=== PATIENT | male | born 1950 | race Caucasian/White ===

== ENCOUNTER 2020-07-18 13:46 | Inpatient (IN) | payer MEDICARE, BC ==
--- NOTE | 2020-07-18 14:15 | EDM.PDOC ---
ED HPI GENERAL MEDICAL PROBLEM - General Chief Complaint: Respiratory Problem Stated Complaint: COVID + Time Seen by Provider: 07/18/20 14:04 Source of Information: Reports: Patient History Limitations: Reports: No Limitations - History of Present Illness INITIAL COMMENTS - FREE TEXT/NARRATIVE: 69-year-old male presents to the ED with known COVID-19 positivity diagnosed July 10. Symptoms developed with fever chills body aches sore throat on July 07. Patient presents to the ED today due to mild dyspnea. Continues to have paroxysmal nonproductive cough. He is weak, dizzy has not eaten hardly at any solid food since the onset of illness on July 07. This would make him day 9 of illness. He has not developed any diarrhea. Intermittent daily fever. Last took Tylenol at 1100 hrs today. He had dry heaves for 1 day of illness. O2 sats on arrival in the ED were reportedly 74%. He continues to have fever and chills with rigors at the time of evaluation in the ED. He has been living at home with his sleeping on the couch. So far his is not showing any signs or symptoms. He is unsure where he picked up the virus. Onset: Sudden Onset Date: 07/07/20 Duration: Day(s): Location: Reports: Generalized, Other (Has myalgia and weakness. Paroxysmal nonproductive cough. COVID-19 positive with symptom onset July 07.) Quality: Reports: Ache (Neurolyse myalgia), Other Severity: Moderate Improves with: Reports: None Worsens with: Reports: Movement Context: Denies: Activity, Exercise, Lifting, Sick Contact, Trauma, Other Associated Symptoms: Reports: Cough, Diaphoresis, Fever/Chills, Headaches, Loss of Appetite, Malaise, Nausea/Vomiting, Shortness of Breath, Weakness (He 1 day with dry heaves but no true vomiting.), Other (No diarrhea.Nasal congestion. ). Denies: Chest Pain, cough w sputum (Intermittent severe paroxysmal cough. Nonproductive), Rash, Seizure (Mild.), Syncope Treatments [employer]: Reports: Acetaminophen - Related Data Allergies Allergy/AdvReac Type Severity Reaction Status Date / Time No Known Allergies Allergy Verified 07/18/20 14:16 Home Meds: Home Meds Metoprolol Tartrate [Lopressor] 50 mg PO BID 11/09/16 [History] Past Medical History HEENT History: Reports: Impaired Vision Other HEENT History: glasses Cardiovascular History: Reports: Hypertension Musculoskeletal History: Reports: Amputation - Past Surgical History Musculoskeletal Surgical History: Reports: Other (See Below) (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 He ended up having the left index finger and thumb amputated.) Social & Family History - Family History Family Medical History: No Pertinent Family History - Caffeine Use Caffeine Use: Reports: Coffee - Living Situation & Occupation Living situation: Reports: Occupation: Retired ED ROS GENERAL - Review of Systems Review Of Systems: See Below Constitutional: Reports: Fever, Chills, Malaise, Weakness, Fatigue, Decreased Appetite (Has not had any solids for 9 days), Weight Loss HEENT: Reports: Glasses, Throat Pain (Nasal congestion. Mild sore throat.), Other Respiratory: Reports: Shortness of Breath, Cough (Ox is minimal intermittent cough). Denies: Wheezing, Pleuritic Chest Pain, Sputum, Hemoptysis ( nonproductive) Cardiovascular: Reports: Blood Pressure Problem, Dyspnea on Exertion. Denies: Chest Pain, Claudication (Is on medication for hypertension.), Edema, Lightheadedness, Orthopnea, Palpitations Endocrine: Reports: Fatigue GI/Abdominal: Reports: Anorexia, Nausea (Intermittent nausea.). Denies: Diarrhea, Vomiting : Reports: Other (Urine is dark in color.) Musculoskeletal: Reports: Other (Neurolyse myalgia involving neck low back hips.) Skin: Reports: No Symptoms Neurological: Reports: Headache, Weakness (Generalized weakness.). Denies: Confusion, Dizziness, Numbness, Paresthesia, Syncope, Tingling, Tremors, Change in Speech, Gait Disturbance Psychiatric: Reports: Anxiety Hematologic/Lymphatic: Reports: No Symptoms Immunologic: Reports: No Symptoms ED EXAM, GENERAL - Physical Exam Exam: See Below Exam Limited By: No Limitations General Appearance: Alert, WD/WN, No Apparent Distress, Other (Patient is flushed and warm to palpation. His O2 sats at time of presentation only 74% on room air. Started on 3 L but took 5 L/min to get him up to 94 to 96%. Temperature is 36.9 according to the nurse although he feels much warmer than this. Heart rate was 96 in sinus on the monitor respiratory to 32/min. Blood pressure initially was recorded very high at 224/189 which is unlikely to be accurate due to the pulse pressure being too close together. Subsequent blood pressure check was 149/85.) Eye Exam: Bilateral Eye: Normal Inspection (No scleral icterus or blepharal pallor.), PERRL Ears: Normal TMs Nose: Normal Inspection Throat/Mouth: Other (Tongue is very dry and coated. Diffuse minimal erythema posterior oropharynx without any exudate.) Head: Atraumatic, Normocephalic Neck: Normal Inspection, Supple, Non-Tender, Full Range of Motion. No: Carotid Bruit, Lymphadenopathy (L), Lymphadenopathy (R), Thyromegaly Respiratory/Chest: Lungs Clear, Normal Breath Sounds, No Accessory Muscle Use, Respiratory Distress (Tachypnea at rest with O2 sats of only 74% room air.) Cardiovascular: Normal Peripheral Pulses, No Edema, No Gallop, No Murmur, No Rub, Tachycardia (6/min on my evaluation) Peripheral Pulses: 2+: Posterior Tibial (L), Posterior Tibial (R), Dorsalis Pedis (L), Dorsalis Pedis (R), 3+: Carotid (L), Carotid (R) GI/Abdominal: Normal Bowel Sounds, Soft, Non-Tender, No Organomegaly, No Mass, Pelvis Stable Back Exam: Normal Inspection, Full Range of Motion. No: CVA Tenderness (L), CVA Tenderness (R) Extremities: Non-Tender, Other (Patient has had previous surgery with amputation of left thumb left index finger from electrocution injury while working as a clin nurse. He also suffered extensive injury to the forearm muscles. Has some permanent left-sided arm weakness.) Neurological: Alert, Oriented, CN II-XII Intact, Normal Cognition Psychiatric: Normal Affect, Normal Mood Skin Exam: Warm, Dry, Intact, Normal Color, Other (Face is flushed and warm to palpation.) #1 Interpretation EKG Date: 07/18/20 Time: 14:33 Rhythm: NSR Rate (Beats/Min): 93 [place]: Normal P-Wave: Enlarged QRS: Other (Left atrial hypertrophy pattern RSR prime wave V1 and V2 consider normal variant. Early R wave transition consider septal hypertrophy pattern) ST-T: Other (Nonspecific T wave flattening aVL) QT: Normal EKG Interpretation Comments: Abnormal ECG Course - Vital Signs Last Recorded V/S: Last Vital Signs Temp 38.7 C H 07/18/20 15:03 Pulse 97 07/18/20 15:00 Resp 34 H 07/18/20 15:00 BP 155/64 H 07/18/20 15:00 Pulse Ox 95 07/18/20 15:00 - Orders/Labs/Meds Orders: Active Orders 24 hr Category Date Time Status EKG Documentation Completion [RC] STAT Care 07/18/20 14:18 Active Oxygen Therapy [RC] ASDIRECTED Care 07/18/20 14:18 Active Oxygen Therapy [RC] ASDIRECTED Care 07/18/20 14:25 Active C-REACTIVE PROTEIN [CHEM] Stat Lab 07/18/20 14:57 Results CULTURE BLOOD [BC] Stat Lab 07/18/20 14:57 Received CULTURE BLOOD [BC] Stat Lab 07/18/20 15:10 Received MAGNESIUM [CHEM] Stat Lab 07/18/20 14:57 Results SEDIMENTATION RATE AUTO [HEME] Stat Lab 07/18/20 14:57 Received URINALYSIS W/MICROSCOPIC [UA W/MICROSCOPIC] [URIN] Stat Lab 07/18/20 14:26 Ordered Dextrose 5%-Lactated Ringers 1,000 ml Med 07/18/20 14:30 Active IV ASDIRECTED dexAMETHasone [Decadron] Med 07/18/20 16:10 Once 6 mg IVPUSH ONETIME ONE Blood Culture x2 Reflex Set [OM.PC] Stat Oth 07/18/20 14:39 Ordered Medication Orders Dextrose/Lactated Ringer's (Dextrose 5%-Lactated Ringers) 1,000 mls @ 150 mls/hr IV ASDIRECTED [facility] Admin: 07/18/20 15:02 Dose: 150 mls/hr Documented by: JORDI 69-year-old male presents to the ED with known COVID-19 illness. Became symptomatic with fever chills body aches and headache on July 07. Diagnosed positive on July 10. He therefore is currently on day 9 of illness. He presents primarily because of fever chills generalized weakness. He reports he not been able to eat any solids normal since onset of illness. He has been taking fluids forcefully. Continues to have a paroxysmal nonproductive cough. 1 day he had nausea with dry heaves. No diarrhea. Nasal congestion persists with mild sore throat. Patient found to be hypoxic at time of presentation with O2 sats of 74% on room air. He clinically is also febrile. Lungs are clear to all station percussion. Plan septic work-up to be completed. Patient will likely require admission to the hospital as he takes 5 L of oxygen to maintain O2 sats greater than 94%. He will be turned down to 4 L/min by nasal cannula at this time. Patient will benefit from dexamethasone IV and Remdesivir. Labs: Laboratory Tests 07/18/20 07/18/20 07/18/20 Range/Units 14:57 14:57 14:57 WBC 6.36 (4.23-9.07) K/mm3 RBC 4.46 L (4.63-6.08) M/mm3 Hgb 13.8 (13.7-17.5) gm/dl Hct 42.2 (40.1-51.0) % MCV 94.6 H (79.0-92.2) fl MCH 30.9 (25.7-32.2) pg MCHC 32.7 (32.2-35.5) g/dl RDW Std Deviation 43.6 (35.1-43.9) fL Plt Count 153 L (163-337) K/mm3 MPV 9.6 (9.4-12.3) fl Neut % (Auto) 85.5 H (34.0-67.9) % Lymph % (Auto) 9.6 L (21.8-53.1) % [place] % (Auto) 4.6 L (5.3-12.2) % Eos % (Auto) 0 L (0.8-7.0) Baso % (Auto) 0.0 L (0.1-1.2) % Neut # (Auto) 5.44 H (1.78-5.38) K/mm3 Lymph # (Auto) 0.61 L (1.32-3.57) K/mm3 [place] # (Auto) 0.29 L (0.30-0.82) K/mm3 Eos # (Auto) 0.00 L (0.04-0.54) K/mm3 Baso # (Auto) 0.00 L (0.01-0.08) K/mm3 Manual Slide Review Abnormal smear PT 11.8 (9.7-12.0) SECONDS INR 1.10 APTT 37.2 H (21.7-31.4) SECONDS Sodium 136 (136-145) mEq/L Potassium 3.8 (3.5-5.1) mEq/L Chloride 98 (98-107) mEq/L Carbon Dioxide 28 (21-32) mEq/L Anion Gap 13.8 (5-15) BUN 20 H (7-18) mg/dL Creatinine 1.3 (0.7-1.3) mg/dL Est Cr Clr Drug Dosing 55.51 mL/min Estimated GFR (MDRD) 54 (>60) mL/min BUN/Creatinine Ratio 15.4 (14-18) Glucose 106 (83-115) mg/dL Lactic Acid (0.4-2.0) mmol/L Calcium 8.2 L (8.5-10.1) mg/dL Magnesium (1.8-2.4) mg/dl Total Bilirubin 0.5 (0.2-1.0) mg/dL AST 42 H (15-37) U/L ALT 39 (16-63) U/L Alkaline Phosphatase 36 L (46-116) U/L Troponin I < 0.017 (0.00-0.056) ng/mL NT-Pro-B Natriuret Pep (0-125) pg/mL Total Protein 7.6 (6.4-8.2) g/dl Albumin 2.8 L (3.4-5.0) g/dl Globulin 4.8 gm/dL Albumin/Globulin Ratio 0.6 L (1-2) 07/18/20 07/18/20 07/18/20 Range/Units 14:57 14:57 14:57 WBC (4.23-9.07) K/mm3 RBC (4.63-6.08) M/mm3 Hgb (13.7-17.5) gm/dl Hct (40.1-51.0) % MCV (79.0-92.2) fl MCH (25.7-32.2) pg MCHC (32.2-35.5) g/dl RDW Std Deviation (35.1-43.9) fL Plt Count (163-337) K/mm3 MPV (9.4-12.3) fl Neut % (Auto) (34.0-67.9) % Lymph % (Auto) (21.8-53.1) % [place] % (Auto) (5.3-12.2) % Eos % (Auto) (0.8-7.0) Baso % (Auto) (0.1-1.2) % Neut # (Auto) (1.78-5.38) K/mm3 Lymph # (Auto) (1.32-3.57) K/mm3 [place] # (Auto) (0.30-0.82) K/mm3 Eos # (Auto) (0.04-0.54) K/mm3 Baso # (Auto) (0.01-0.08) K/mm3 Manual Slide Review PT (9.7-12.0) SECONDS INR APTT (21.7-31.4) SECONDS Sodium (136-145) mEq/L Potassium (3.5-5.1) mEq/L Chloride (98-107) mEq/L Carbon Dioxide (21-32) mEq/L Anion Gap (5-15) BUN (7-18) mg/dL Creatinine (0.7-1.3) mg/dL Est Cr Clr Drug Dosing mL/min Estimated GFR (MDRD) (>60) mL/min BUN/Creatinine Ratio (14-18) Glucose (83-115) mg/dL Lactic Acid 1.6 (0.4-2.0) mmol/L Calcium (8.5-10.1) mg/dL Magnesium 1.9 (1.8-2.4) mg/dl Total Bilirubin (0.2-1.0) mg/dL AST (15-37) U/L ALT (16-63) U/L Alkaline Phosphatase (46-116) U/L Troponin I (0.00-0.056) ng/mL NT-Pro-B Natriuret Pep 308 H (0-125) pg/mL Total Protein (6.4-8.2) g/dl Albumin (3.4-5.0) g/dl Globulin gm/dL Albumin/Globulin Ratio (1-2) Meds: Medications Generic Name Dose Route Start Last Admin Trade Name Freq PRN Reason Stop Dose Admin Dextrose/Lactated Ringer's 1,000 mls @ 150 mls/hr 07/18/20 14:30 07/18/20 15:02 Dextrose 5%-Lactated Ringers IV 150 mls/hr ASDIRECTED OBEY Administration Discontinued Medications Generic Name Dose Route Start Last Admin Trade Name Deana PRN Reason Stop Dose Admin Ibuprofen 600 mg 07/18/20 14:30 07/18/20 15:03 Motrin PO 07/18/20 14:31 600 mg ONETIME ONE Administration - Radiology Interpretation Free Text/Narrative:: 69-year-old male presents to the ED with known COVID-19 illness with symptoms developing July 07. Tested and notified of positivity on 10 July. He has they are currently on day 11 of illness. Mild minimal paroxysmal cough. Mild subjective dyspnea. O2 sat 74% on arrival in the ED. Placed on oxygen at 3 L and titrated up as high as 5 L. This achieved O2 sats of 98% and he was thus weaned down to 3.5 L/min by nasal cannula. Patient will be given Motrin 600 mg by mouth for fever relief. He last took a dose of Tylenol at 11:00 this morning. He has had no significant GI symptoms. He has had absolutely no appetite with very minimal solid intake for the last 11 days. Plan IV D5 normal saline at 150 mils per hour. Routine labs to be done and CXR. - Re-Assessments/Exams Free Text/Narrative Re-Assessment/Exam: 07/18/20 15:35: Chest x-ray reveals bilateral patchy lower lobe infiltrates com patible with COVID-19 viral pneumonia. The x-rays coincidentally show degenerative changes within the thoracic spine with no acute osseous abnormality. Patient will therefore be given dexamethasone 6 mg IV with planned use of remdesivir 200 mg IV as well. I am awaiting his renal function before ordering the remdesivir. 07/18/20 16:13 PT is 11.8 with an INR slightly elevated at 1.10. PTT is el evated at 37.2. Sodium is 136 with a potassium of 3.8 and a chloride of 98 with a bicarb of 28. Anion gap is 13.8. BUN is 20 with a creatinine of 1.3. GFR is 54. Glucose is 106. Lactic acid is 1.6. Calcium is 8.2. Magnesium is 1.9. AST is 42 with a normal bilirubin of 0.5 ALT normal at 39 alk phosphatase is normal at 36. Troponin I is less than 0.017. BNP is mildly elevated at 308. Total protein is 7.6. Albumin fraction is 2.8. Reexamination the patient is actually much warmer and flushed on palpation when than when he arrived. He did receive his Motrin 600 mg as ordered. I am going to give him Tylenol 9 7 5 mg now for fever relief. He last took a dose of Tylenol about 1100 hrs. this morning. I have spoken with [facility] hospitalist --Dr Light patient will be transferred to the intensive care unit for admission. Apparently this will happen fairly promptly on I will therefore not start him on the remdesivir in the ED. Departure - Departure Time of Disposition: 16:31 Disposition: Admitted As Inpatient 64 Condition: Serious Clinical Impression: COVID-19 determined by clinical diagnostic criteria, Viral pneumonia, Hypoxia, Elevated C-reactive protein (CRP) - Discharge Information *PRESCRIPTION DRUG MONITORING PROGRAM REVIEWED*: Not Applicable *COPY OF PRESCRIPTION DRUG MONITORING REPORT IN PATIENT JAMEL: Not Applicable Instructions: Hypoxemia, COVID-19 Frequently Asked Questions, COVID-19, COVID- 19: How to Protect Yourself and Others - [facility] Referrals: Ben Abrams Jr, MD [Primary Care Provider] - Forms: ED Department Discharge Additional Instructions: 69-year-old male presents to the ED with known Covid positivity since July 10. Symptomatic since July 07. He is hypoxic at time of presentation to the ED with O2 sats of 74%. Placed initially on 3 L of oxygen and titrated up as high as 5 L. Subsequently able to wean him down to 3.5 L to maintain sats greater than 92%. Chest x-ray reveals bilateral viral pneumonia involving both lower lobes and right middle lobe. Patient will be admitted to the intensive care unit for treatment of hypoxemia secondary to COVID-19 illness. He will be started on dexamethasone 6 mg IV now and remdesivir 200 mg IV. Patient is definitely febrile and more febrile since seen initially in the ED. Sepsis Event Note (ED) - Evaluation Sepsis Screening Result: No Definite Risk - Focused Exam Vital Signs: Vital Signs Temp Temp Pulse Resp BP Pulse Ox 07/18/20 15:03 38.7 C H 07/18/20 15:00 38.7 C H 97 34 H 155/64 H 95 07/18/20 13:50 36.9 C 96 32 H 224/189 H 74 L - My Orders Last 24 Hours: My Active Orders 07/18/20 14:18 EKG Documentation Completion [RC] STAT Oxygen Therapy [RC] ASDIRECTED 07/18/20 14:25 Oxygen Therapy [RC] ASDIRECTED 07/18/20 14:26 URINALYSIS W/MICROSCOPIC [UA W/MICROSCOPIC] [URIN] Stat 07/18/20 14:30 Dextrose 5%-Lactated Ringers 1,000 ml IV ASDIRECTED 07/18/20 14:39 Blood Culture x2 Reflex Set [OM.PC] Stat 07/18/20 14:57 C-REACTIVE PROTEIN [CHEM] Stat CULTURE BLOOD [BC] Stat MAGNESIUM [CHEM] Stat SEDIMENTATION RATE AUTO [HEME] Stat 07/18/20 15:10 CULTURE BLOOD [BC] Stat 07/18/20 16:10 dexAMETHasone [Decadron] 6 mg IVPUSH ONETIME ONE - Assessment/Plan Last 24 Hours: My Active Orders 07/18/20 14:18 EKG Documentation Completion [RC] STAT Oxygen Therapy [RC] ASDIRECTED 07/18/20 14:25 Oxygen Therapy [RC] ASDIRECTED 07/18/20 14:26 URINALYSIS W/MICROSCOPIC [UA W/MICROSCOPIC] [URIN] Stat 07/18/20 14:30 Dextrose 5%-Lactated Ringers 1,000 ml IV ASDIRECTED 07/18/20 14:39 Blood Culture x2 Reflex Set [OM.PC] Stat 07/18/20 14:57 C-REACTIVE PROTEIN [CHEM] Stat CULTURE BLOOD [BC] Stat MAGNESIUM [CHEM] Stat SEDIMENTATION RATE AUTO [HEME] Stat 07/18/20 15:10 CULTURE BLOOD [BC] Stat 07/18/20 16:10 dexAMETHasone [Decadron] 6 mg IVPUSH ONETIME ONE
[2020-07-18] MEDS ORDERED: Dextrose 5%-Lactated Ringers 1,000 ML IV SCH (14:30)
[2020-07-18] MEDS ORDERED: Ibuprofen 600 MG Tab PO ONE (14:30)
--- NOTE | 2020-07-18 14:57 | CR ---
Chest: Portable view of the chest was obtained. Comparison: Previous chest x-ray of 06/25/16. Findings: Heart and mediastinum: Heart size and mediastinum are within normal limits. Lungs: Lung markings are increased throughout both sides of the chest. No focal alveolar densities seen at this time. Osseous: Bony structures shows degenerative change within the spine with no acute osseous abnormality. Impression: 1. Patchy areas of interstitial change within both sides of the chest. Given positive COVID test these findings are most likely due to mild diffuse COVID pneumonia. Diagnostic code #3
[2020-07-18] MEDS ORDERED: Dexamethasone 10 MG/ML SDV IVPUSH ONE (16:10)
[2020-07-18] MEDS ORDERED: Acetaminophen 325 MG Tab PO ONE (16:18)
[2020-07-18] MEDS ORDERED: REMDESIVIR 200 MG in Sodium Chloride 0.9% 250 ML IV ONE (17:11)
[2020-07-18] MEDS ORDERED: Ondansetron 4 MG/2 ML SDV IV PRN (17:11)
[2020-07-18] MEDS ORDERED: Acetaminophen 325 MG Tab PO PRN (17:11)
--- NOTE | 2020-07-18 20:31 | PCM.HP.2 ---
H&P History of Present Illness - General Date of Service: 07/18/20 Admit Problem/Dx: Admission Diagnosis/Problem Admission Diagnosis/Problem Hypoxia - History of Present Illness Initial Comments - Free Text/Narative: 69-year-old male with history of hypertension and diagnosed with COVID-19 on July 10, 2020 presents to the emergency department with recurrence of fever and fatigue. Patient states he started getting ill on July 07 and has had poor oral intake. He initially had fever that did resolve and then came back couple days ago. He continues to have paroxysmal nonproductive cough, and weakness. Initially he had fever, chills, body aches, sore throat, and cough. When he arrived in the emergency department his oxygen saturations were 74% and on 3 L by increased to the 90s. EKG showed normal sinus rhythm with a ventricular rate of 93 bpm. P wave was enlarged. RSR prime in V1 and V2. Ea rly R wave transition with possible septal hypertrophy. Left atrial hypertrophy. - Related Data Allergies/Adverse Reactions: Allergies Allergy/AdvReac Type Severity Reaction Status Date / Time No Known Allergies Allergy Verified 07/18/20 14:16 Home Medications: Home Meds Metoprolol Tartrate [Lopressor] 50 mg PO BID 06/25/16 [History] Past Medical History HEENT History: Reports: Impaired Vision Other HEENT History: glasses Cardiovascular History: Reports: High Cholesterol, Hypertension Respiratory History: Reports: Bronchitis, Recurrent, Other (See Below) Other Respiratory History: COVID since 07/07/2020. 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 He ended up having the left index finger and thumb amputated.) Social & Family History - Family History Family Medical History: No Pertinent Family History - Tobacco Use Tobacco Use Status *Q: Never Tobacco User Second Hand Smoke Exposure: No - Caffeine Use Caffeine Use: Reports: Coffee - Recreational Drug Use Recreational Drug Use: No - Living Situation & Occupation Living situation: Reports: Occupation: Retired H&P Review of Systems - Review of Systems: Review Of Systems: Comprehensive ROS is negative, except as noted in HPI. Exam - Exam Exam: See Below - Vital Signs Vital Signs: Last Vital Signs Temp 98.6 F 07/18/20 17:46 Pulse 90 07/18/20 17:46 Resp 28 H 07/18/20 17:46 BP 149/65 H 07/18/20 17:46 Pulse Ox 95 07/18/20 20:24 Weight: 202 lb - Exam Quality Assessment: Supplemental Oxygen General: Alert, Oriented, 4 HEENT: Conjunctiva Clear, Hearing Intact, Mucosa Moist & [place], Normal Nasal Septum Neck: Supple, Trachea Midline, 2 Lungs: Normal Respiratory Effort, Rales (Bibasilar and midlung perez) Cardiovascular: Regular Rate, Regular Rhythm GI/Abdominal Exam: Normal Bowel Sounds, Soft, Non-Tender, No Organomegaly, No Distention, No Abnormal Bruit, No Mass, Pelvis Stable Extremities: Normal Inspection, Normal Range of Motion, Non-Tender, No Pedal Edema, Normal Capillary Refill Peripheral Pulses: 2+: Posterior Tibial (L), Posterior Tibial (R), Dorsalis Pedis (L), Dorsalis Pedis (R) Skin: Warm, Dry, Intact Neurological: Cranial Nerves Intact, Reflexes Equal Bilateral Neuro Extensive - Mental Status: Alert, Oriented x3, Normal Mood/Affect, Normal Cognition, Memory Intact Psychiatric: Alert, Normal Affect, Normal Mood - Patient Data Lab Results Last 24 hrs: Laboratory Results - last 24 hr 07/18/20 07/18/20 07/18/20 Range/Units 14:57 14:57 14:57 WBC 6.36 (4.23-9.07) K/mm3 RBC 4.46 L (4.63-6.08) M/mm3 Hgb 13.8 (13.7-17.5) gm/dl Hct 42.2 (40.1-51.0) % MCV 94.6 H (79.0-92.2) fl MCH 30.9 (25.7-32.2) pg MCHC 32.7 (32.2-35.5) g/dl RDW Std Deviation 43.6 (35.1-43.9) fL Plt Count 153 L (163-337) K/mm3 MPV 9.6 (9.4-12.3) fl Neut % (Auto) 85.5 H (34.0-67.9) % Lymph % (Auto) 9.6 L (21.8-53.1) % Campbell % (Auto) 4.6 L (5.3-12.2) % Eos % (Auto) 0 L (0.8-7.0) Baso % (Auto) 0.0 L (0.1-1.2) % Neut # (Auto) 5.44 H (1.78-5.38) K/mm3 Lymph # (Auto) 0.61 L (1.32-3.57) K/mm3 Campbell # (Auto) 0.29 L (0.30-0.82) K/mm3 Eos # (Auto) 0.00 L (0.04-0.54) K/mm3 Baso # (Auto) 0.00 L (0.01-0.08) K/mm3 Manual Slide Review Abnormal smear ESR (0-15) mm/hr PT 11.8 (9.7-12.0) SECONDS INR 1.10 APTT 37.2 H (21.7-31.4) SECONDS D-Dimer, Quantitative (0.19-0.50) mg/L Sodium 136 (136-145) mEq/L Potassium 3.8 (3.5-5.1) mEq/L Chloride 98 (98-107) mEq/L Carbon Dioxide 28 (21-32) mEq/L Anion Gap 13.8 (5-15) BUN 20 H (7-18) mg/dL Creatinine 1.3 (0.7-1.3) mg/dL Est Cr Clr Drug Dosing 55.51 mL/min Estimated GFR (MDRD) 54 (>60) mL/min BUN/Creatinine Ratio 15.4 (14-18) Glucose 106 (83-115) mg/dL Lactic Acid (0.4-2.0) mmol/L Calcium 8.2 L (8.5-10.1) mg/dL Magnesium (1.8-2.4) mg/dl Ferritin (26-388) ng/ml Total Bilirubin 0.5 (0.2-1.0) mg/dL AST 42 H (15-37) U/L ALT 39 (16-63) U/L Alkaline Phosphatase 36 L (46-116) U/L Lactate Dehydrogenase (85-227) U/L Troponin I < 0.017 (0.00-0.056) ng/mL C-Reactive Protein (<1.0) mg/dL NT-Pro-B Natriuret Pep (0-125) pg/mL Total Protein 7.6 (6.4-8.2) g/dl Albumin 2.8 L (3.4-5.0) g/dl Globulin 4.8 gm/dL Albumin/Globulin Ratio 0.6 L (1-2) 07/18/20 07/18/20 07/18/20 Range/Units 14:57 14:57 14:57 WBC (4.23-9.07) K/mm3 RBC (4.63-6.08) M/mm3 Hgb (13.7-17.5) gm/dl Hct (40.1-51.0) % MCV (79.0-92.2) fl MCH (25.7-32.2) pg MCHC (32.2-35.5) g/dl RDW Std Deviation (35.1-43.9) fL Plt Count (163-337) K/mm3 MPV (9.4-12.3) fl Neut % (Auto) (34.0-67.9) % Lymph % (Auto) (21.8-53.1) % Campbell % (Auto) (5.3-12.2) % Eos % (Auto) (0.8-7.0) Baso % (Auto) (0.1-1.2) % Neut # (Auto) (1.78-5.38) K/mm3 Lymph # (Auto) (1.32-3.57) K/mm3 Campbell # (Auto) (0.30-0.82) K/mm3 Eos # (Auto) (0.04-0.54) K/mm3 Baso # (Auto) (0.01-0.08) K/mm3 Manual Slide Review ESR 74 H (0-15) mm/hr PT (9.7-12.0) SECONDS INR APTT (21.7-31.4) SECONDS D-Dimer, Quantitative (0.19-0.50) mg/L Sodium (136-145) mEq/L Potassium (3.5-5.1) mEq/L Chloride (98-107) mEq/L Carbon Dioxide (21-32) mEq/L Anion Gap (5-15) BUN (7-18) mg/dL Creatinine (0.7-1.3) mg/dL Est Cr Clr Drug Dosing mL/min Estimated GFR (MDRD) (>60) mL/min BUN/Creatinine Ratio (14-18) Glucose (83-115) mg/dL Lactic Acid (0.4-2.0) mmol/L Calcium (8.5-10.1) mg/dL Magnesium 1.9 (1.8-2.4) mg/dl Ferritin (26-388) ng/ml Total Bilirubin (0.2-1.0) mg/dL AST (15-37) U/L ALT (16-63) U/L Alkaline Phosphatase (46-116) U/L Lactate Dehydrogenase (85-227) U/L Troponin I (0.00-0.056) ng/mL C-Reactive Protein 24.2 H* (<1.0) mg/dL NT-Pro-B Natriuret Pep 308 H (0-125) pg/mL Total Protein (6.4-8.2) g/dl Albumin (3.4-5.0) g/dl Globulin gm/dL Albumin/Globulin Ratio (1-2) 07/18/20 07/18/20 07/18/20 Range/Units 14:57 14:57 14:57 WBC (4.23-9.07) K/mm3 RBC (4.63-6.08) M/mm3 Hgb (13.7-17.5) gm/dl Hct (40.1-51.0) % MCV (79.0-92.2) fl MCH (25.7-32.2) pg MCHC (32.2-35.5) g/dl RDW Std Deviation (35.1-43.9) fL Plt Count (163-337) K/mm3 MPV (9.4-12.3) fl Neut % (Auto) (34.0-67.9) % Lymph % (Auto) (21.8-53.1) % Campbell % (Auto) (5.3-12.2) % Eos % (Auto) (0.8-7.0) Baso % (Auto) (0.1-1.2) % Neut # (Auto) (1.78-5.38) K/mm3 Lymph # (Auto) (1.32-3.57) K/mm3 Campbell # (Auto) (0.30-0.82) K/mm3 Eos # (Auto) (0.04-0.54) K/mm3 Baso # (Auto) (0.01-0.08) K/mm3 Manual Slide Review ESR (0-15) mm/hr PT (9.7-12.0) SECONDS INR APTT (21.7-31.4) SECONDS D-Dimer, Quantitative 1.38 H (0.19-0.50) mg/L Sodium (136-145) mEq/L Potassium (3.5-5.1) mEq/L Chloride (98-107) mEq/L Carbon Dioxide (21-32) mEq/L Anion Gap (5-15) BUN (7-18) mg/dL Creatinine (0.7-1.3) mg/dL Est Cr Clr Drug Dosing mL/min Estimated GFR (MDRD) (>60) mL/min BUN/Creatinine Ratio (14-18) Glucose (83-115) mg/dL Lactic Acid 1.6 (0.4-2.0) mmol/L Calcium (8.5-10.1) mg/dL Magnesium (1.8-2.4) mg/dl Ferritin (26-388) ng/ml Total Bilirubin (0.2-1.0) mg/dL AST (15-37) U/L ALT (16-63) U/L Alkaline Phosphatase (46-116) U/L Lactate Dehydrogenase 327 H (85-227) U/L Troponin I (0.00-0.056) ng/mL C-Reactive Protein (<1.0) mg/dL NT-Pro-B Natriuret Pep (0-125) pg/mL Total Protein (6.4-8.2) g/dl Albumin (3.4-5.0) g/dl Globulin gm/dL Albumin/Globulin Ratio (1-2) 07/18/20 Range/Units 14:57 WBC (4.23-9.07) K/mm3 RBC (4.63-6.08) M/mm3 Hgb (13.7-17.5) gm/dl Hct (40.1-51.0) % MCV (79.0-92.2) fl MCH (25.7-32.2) pg MCHC (32.2-35.5) g/dl RDW Std Deviation (35.1-43.9) fL Plt Count (163-337) K/mm3 MPV (9.4-12.3) fl Neut % (Auto) (34.0-67.9) % Lymph % (Auto) (21.8-53.1) % Campbell % (Auto) (5.3-12.2) % Eos % (Auto) (0.8-7.0) Baso % (Auto) (0.1-1.2) % Neut # (Auto) (1.78-5.38) K/mm3 Lymph # (Auto) (1.32-3.57) K/mm3 Campbell # (Auto) (0.30-0.82) K/mm3 Eos # (Auto) (0.04-0.54) K/mm3 Baso # (Auto) (0.01-0.08) K/mm3 Manual Slide Review ESR (0-15) mm/hr PT (9.7-12.0) SECONDS INR APTT (21.7-31.4) SECONDS D-Dimer, Quantitative (0.19-0.50) mg/L Sodium (136-145) mEq/L Potassium (3.5-5.1) mEq/L Chloride (98-107) mEq/L Carbon Dioxide (21-32) mEq/L Anion Gap (5-15) BUN (7-18) mg/dL Creatinine (0.7-1.3) mg/dL Est Cr Clr Drug Dosing mL/min Estimated GFR (MDRD) (>60) mL/min BUN/Creatinine Ratio (14-18) Glucose (83-115) mg/dL Lactic Acid (0.4-2.0) mmol/L Calcium (8.5-10.1) mg/dL Magnesium (1.8-2.4) mg/dl Ferritin 3133 H (26-388) ng/ml Total Bilirubin (0.2-1.0) mg/dL AST (15-37) U/L ALT (16-63) U/L Alkaline Phosphatase (46-116) U/L Lactate Dehydrogenase (85-227) U/L Troponin I (0.00-0.056) ng/mL C-Reactive Protein (<1.0) mg/dL NT-Pro-B Natriuret Pep (0-125) pg/mL Total Protein (6.4-8.2) g/dl Albumin (3.4-5.0) g/dl Globulin gm/dL Albumin/Globulin Ratio (1-2) Result Diagrams: 07/18/20 14:57 07/18/20 14:57 Sepsis Event Note - Evaluation Sepsis Screening Result: No Definite Risk - Focused Exam Vital Signs: Vital Signs Temp Temp Pulse Resp BP Pulse Ox Pulse Ox 07/18/20 20:24 95 07/18/20 17:46 98.6 F 90 28 H 149/65 H 94 L 07/18/20 16:35 104.0 F H 104 H 30 H 149/65 H 92 L 07/18/20 16:33 104.0 F H 07/18/20 15:03 101.6 F H 07/18/20 15:00 101.6 F H 97 34 H 155/64 H 95 07/18/20 13:50 98.5 F 96 32 H 224/189 H 74 L - Problem List (1) Hypertension SNOMED Code(s): 45438925 ICD Code: I10 - ESSENTIAL (PRIMARY) HYPERTENSION Status: Acute Current Visit: Yes (2) Pneumonia due to COVID-19 virus SNOMED Code(s): 771743454283482173 ICD Code: U07.1 - COVID-19; J12.89 - OTHER VIRAL PNEUMONIA Status: Acute Current Visit: Yes (3) COVID-19 determined by clinical diagnostic criteria SNOMED Code(s): 118734698, 118823417 ICD Code: U07.1 - COVID-19 Status: Acute Current Visit: Yes Problem List Initiated/Reviewed/Updated: Yes Orders Last 24hrs: Active Orders 24 hr Category Date Time Status Admission Status [Patient Status] [ADT] Routine ADT 07/18/20 16:34 Active Chest Physiotherapy [RT Chest Physiotherapy] [RC] Care 07/18/20 18:01 Active ASDIRECTED EKG Documentation Completion [RC] STAT Care 07/18/20 14:18 Active Nurse Communication: Isolation [RC] ASDIRECTED Care 07/18/20 17:15 Active Oxygen Therapy [RC] ASDIRECTED Care 07/18/20 14:18 Active Oxygen Therapy [RC] ASDIRECTED Care 07/18/20 14:25 Active Positioning, Patient [RC] ASDIRECTED Care 07/18/20 17:14 Active RT Incentive Spirometry [RC] ASDIRECTED Care 07/18/20 17:11 Active Up With Assistance [RC] ASDIRECTED Care 07/18/20 17:11 Active VTE/DVT Education [RC] PER UNIT ROUTINE Care 07/18/20 17:12 Active Vital Signs [RC] Q4H Care 07/18/20 17:12 Active Respiratory Care Assess and Treatment [CONS] Routine Cons 07/18/20 17:11 Active Regular Diet [DIET] Diet 07/18/20 Dinner Active C-REACTIVE PROTEIN [CHEM] AM Lab 07/19/20 05:11 Ordered C-REACTIVE PROTEIN [CHEM] AM Lab 07/20/20 05:11 Ordered C-REACTIVE PROTEIN [CHEM] AM Lab 07/21/20 05:11 Ordered C-REACTIVE PROTEIN [CHEM] AM Lab 07/22/20 05:11 Ordered C-REACTIVE PROTEIN [CHEM] AM Lab 07/23/20 05:11 Ordered CBC WITH AUTO DIFF [HEME] AM Lab 07/19/20 05:11 Ordered CBC WITH AUTO DIFF [HEME] AM Lab 07/20/20 05:11 Ordered CBC WITH AUTO DIFF [HEME] AM Lab 07/21/20 05:11 Ordered CBC WITH AUTO DIFF [HEME] AM Lab 07/22/20 05:11 Ordered CBC WITH AUTO DIFF [HEME] AM Lab 07/23/20 05:11 Ordered CMP [COMPREHENSIVE METABOLIC PN,CMP] [CHEM] AM Lab 07/19/20 05:11 Ordered CMP [COMPREHENSIVE METABOLIC PN,CMP] [CHEM] AM Lab 07/20/20 05:11 Ordered CMP [COMPREHENSIVE METABOLIC PN,CMP] [CHEM] AM Lab 07/21/20 05:11 Ordered CMP [COMPREHENSIVE METABOLIC PN,CMP] [CHEM] AM Lab 07/22/20 05:11 Ordered CMP [COMPREHENSIVE METABOLIC PN,CMP] [CHEM] AM Lab 07/23/20 05:11 Ordered CULTURE BLOOD [BC] Stat Lab 07/18/20 14:57 Received CULTURE BLOOD [BC] Stat Lab 07/18/20 15:10 Received DD [D-DIMER QUANTITATIVE] [COAG] AM Lab 07/19/20 05:11 Ordered DD [D-DIMER QUANTITATIVE] [COAG] AM Lab 07/20/20 05:11 Ordered DD [D-DIMER QUANTITATIVE] [COAG] AM Lab 07/21/20 05:11 Ordered DD [D-DIMER QUANTITATIVE] [COAG] AM Lab 07/22/20 05:11 Ordered DD [D-DIMER QUANTITATIVE] [COAG] AM Lab 07/23/20 05:11 Ordered MAGNESIUM [CHEM] AM Lab 07/19/20 05:11 Ordered MAGNESIUM [CHEM] AM Lab 07/20/20 05:11 Ordered MAGNESIUM [CHEM] AM Lab 07/21/20 05:11 Ordered MAGNESIUM [CHEM] AM Lab 07/22/20 05:11 Ordered MAGNESIUM [CHEM] AM Lab 07/23/20 05:11 Ordered PHOSPHORUS [CHEM] AM Lab 07/19/20 05:11 Ordered PHOSPHORUS [CHEM] AM Lab 07/20/20 05:11 Ordered PHOSPHORUS [CHEM] AM Lab 07/21/20 05:11 Ordered PHOSPHORUS [CHEM] AM Lab 07/22/20 05:11 Ordered PHOSPHORUS [CHEM] AM Lab 07/23/20 05:11 Ordered PROCALCITONIN [REF] Stat Lab 07/18/20 14:57 Received URINALYSIS W/MICROSCOPIC [UA W/MICROSCOPIC] [URIN] Stat Lab 07/18/20 14:26 Ordered Acetaminophen [TylenoL] Med 07/18/20 17:11 Active 650 mg PO Q4H PRN Dextrose 5%-Lactated Ringers 1,000 ml Med 07/18/20 14:30 Active IV ASDIRECTED Enoxaparin [Lovenox] Med 07/19/20 09:00 Active 40 mg SUBCUT DAILY Metoprolol Tartrate [Lopressor] Med 07/18/20 21:00 Ordered 50 mg PO BID Ondansetron [Zofran] Med 07/18/20 17:11 Active 4 mg IV Q4H PRN Remdesivir 100 mg Med 07/19/20 17:15 Active Sodium Chloride 0.9% [Normal Saline] 100 ml IV Q24H dexAMETHasone Med 07/19/20 09:00 Active 6 mg PO DAILY Blood Culture x2 Reflex Set [OM.PC] Stat Oth 07/18/20 14:39 Ordered Isolation [COMM] Stat Oth 07/18/20 17:12 Ordered Code Status [Resuscitation Status] Routine Resus Stat 07/18/20 20:25 Ordered Medication Orders Acetaminophen (Tylenol) 650 mg PO Q4H PRN PRN Reason: Pain (Mild 1-3)/fever Dexamethasone (Dexamethasone) 6 mg PO DAILY [facility] Stop: 07/27/20 09:01 Enoxaparin Sodium (Lovenox) 40 mg SUBCUT DAILY [facility] Dextrose/Lactated Ringer's (Dextrose 5%-Lactated Ringers) 1,000 mls @ 150 mls/hr IV ASDIRECTED [facility] Last Admin: 07/18/20 15:02 Dose: 150 mls/hr Documented by: JORDI Remdesivir 100 mg/ Sodium (Chloride) 100 mls @ 100 mls/hr IV Q24H [facility] Stop: 07/22/20 18:14 Metoprolol Tartrate (Lopressor) 50 mg PO BID [facility] Ondansetron HCl (Zofran) 4 mg IV Q4H PRN PRN Reason: Nausea/Vomiting Assessment/Plan Comment:: Assessment COVID-19 infection with pneumonia and hypoxemia * Initial symptoms started on July 07 with positive diagnosis on the . * Initial symptoms included fever, chills, nonproductive cough, sore throat, myalgias. * Recurrence of fever over the last couple days as high as 104 in the emergency department today. * Increasing weakness and fatigue likely secondary to poor oral intake and hypoxemia. * Started on dexamethasone and remdesivir in the emergency department while awaiting admission. Hypertension * On metoprolol 50 mg twice daily at home * Blood pressure on admission was 155/64 * No history of heart disease, congestive heart failure, or lung disease. * Stopped smoking in 1999. Plan * Admit to medical floor on telemetry and continuous pulse ox * Continue remdesivir and dexamethasone. * Patient is 11 days out from first symptoms likely making convalescent plasma ineffective. Patient likely is already made antibodies. * FiO2 to keep SPO2 88% to 94% * Dietary consult, encourage protein intake and good nutrition. * Patient takes vitamin D and zinc at home and will continue the above. * Continue metoprolol 50 mg twice daily * Initially COVID-19 relevant labs * VTE prophylaxis with Lovenox * CODE STATUS: Full code - Mortality Measure Prognosis:: Good
[2020-07-18] MEDS: Metoprolol Tartrate 50 MG Tab PO SCH (22:03)
[2020-07-19] MEDS: Dexamethasone 4 MG Tab PO SCH (08:26)
[2020-07-19] MEDS: Metoprolol Tartrate 50 MG Tab PO SCH ×2 (08:29→20:26)
[2020-07-19] MEDS: Enoxaparin 40 MG/0.4 ML Syringe SUBCUT SCH (08:30)
--- NOTE | 2020-07-19 08:44 | PCM.PN ---
- General Info Date of Service: 07/19/20 Admission Dx/Problem (Free Text): Admission Diagnosis/Problem Admission Diagnosis/Problem Hypoxia Subjective Update: In to see Jorge. He is laying in bed on his left side with oxygen at 4L. Saturations have been stable. He has been utilizing his IS and acapella. He has been up ambulating around the room. Continues to feel short of breath. BP has been elevated but stable. Functional Status: Reports: Pain Controlled, Tolerating Diet, Ambulating, Urinating, Incentive Spirometry, Other (Acapella ). Denies: New Symptoms - Review of Systems General: Reports: No Symptoms, Weakness, Fatigue. Denies: Fever, Malaise, Chills HEENT: Reports: No Symptoms. Denies: Headaches, Sore Throat Pulmonary: Reports: Shortness of Breath, Pleuritic Chest Pain, Cough. Denies: Sputum, Wheezing Cardiovascular: Reports: No Symptoms, Dyspnea on Exertion. Denies: Chest Pain, Palpitations, Edema Gastrointestinal: Reports: No Symptoms. Denies: Abdominal Pain, Constipation, Diarrhea, Nausea, Vomiting Genitourinary: Reports: No Symptoms. Denies: Pain Musculoskeletal: Reports: No Symptoms Skin: Reports: No Symptoms. Denies: Cyanosis Neurological: Reports: No Symptoms. Denies: Confusion, Pre-Existing Deficit, Difficulty Walking, Gait Disturbance Psychiatric: Reports: No Symptoms - Patient Data Vitals - Most Recent: Last Vital Signs Temp 97.8 F 07/19/20 08:00 Pulse 90 07/19/20 08:29 Resp 20 07/19/20 08:00 BP 160/83 H 07/19/20 08:29 Pulse Ox 90 L 07/19/20 08:00 Weight - Most Recent: 201 lb 3.2 oz I&O - Last 24 Hours: Intake & Output 07/18/20 07/19/20 07/19/20 22:59 06:59 14:59 Intake Total 900 Output Total 250 Balance 650 Lab Results Last 24 Hours: Laboratory Results - last 24 hr 07/18/20 07/18/20 07/18/20 Range/Units 14:57 14:57 14:57 WBC 6.36 (4.23-9.07) K/mm3 RBC 4.46 L (4.63-6.08) M/mm3 Hgb 13.8 (13.7-17.5) gm/dl Hct 42.2 (40.1-51.0) % MCV 94.6 H (79.0-92.2) fl MCH 30.9 (25.7-32.2) pg MCHC 32.7 (32.2-35.5) g/dl RDW Std Deviation 43.6 (35.1-43.9) fL Plt Count 153 L (163-337) K/mm3 MPV 9.6 (9.4-12.3) fl Neut % (Auto) 85.5 H (34.0-67.9) % Lymph % (Auto) 9.6 L (21.8-53.1) % [place] % (Auto) 4.6 L (5.3-12.2) % Eos % (Auto) 0 L (0.8-7.0) Baso % (Auto) 0.0 L (0.1-1.2) % Neut # (Auto) 5.44 H (1.78-5.38) K/mm3 Lymph # (Auto) 0.61 L (1.32-3.57) K/mm3 [place] # (Auto) 0.29 L (0.30-0.82) K/mm3 Eos # (Auto) 0.00 L (0.04-0.54) K/mm3 Baso # (Auto) 0.00 L (0.01-0.08) K/mm3 Manual Slide Review Abnormal smear ESR (0-15) mm/hr PT 11.8 (9.7-12.0) SECONDS INR 1.10 APTT 37.2 H (21.7-31.4) SECONDS D-Dimer, Quantitative (0.19-0.50) mg/L Sodium 136 (136-145) mEq/L Potassium 3.8 (3.5-5.1) mEq/L Chloride 98 (98-107) mEq/L Carbon Dioxide 28 (21-32) mEq/L Anion Gap 13.8 (5-15) BUN 20 H (7-18) mg/dL Creatinine 1.3 (0.7-1.3) mg/dL Est Cr Clr Drug Dosing 55.51 mL/min Estimated GFR (MDRD) 54 (>60) mL/min BUN/Creatinine Ratio 15.4 (14-18) Glucose 106 (83-115) mg/dL Lactic Acid (0.4-2.0) mmol/L Calcium 8.2 L (8.5-10.1) mg/dL Phosphorus (2.6-4.7) mg/dL Magnesium (1.8-2.4) mg/dl Ferritin (26-388) ng/ml Total Bilirubin 0.5 (0.2-1.0) mg/dL AST 42 H (15-37) U/L ALT 39 (16-63) U/L Alkaline Phosphatase 36 L (46-116) U/L Lactate Dehydrogenase (85-227) U/L Troponin I < 0.017 (0.00-0.056) ng/mL C-Reactive Protein (<1.0) mg/dL NT-Pro-B Natriuret Pep (0-125) pg/mL Total Protein 7.6 (6.4-8.2) g/dl Albumin 2.8 L (3.4-5.0) g/dl Globulin 4.8 gm/dL Albumin/Globulin Ratio 0.6 L (1-2) 07/18/20 07/18/20 07/18/20 Range/Units 14:57 14:57 14:57 WBC (4.23-9.07) K/mm3 RBC (4.63-6.08) M/mm3 Hgb (13.7-17.5) gm/dl Hct (40.1-51.0) % MCV (79.0-92.2) fl MCH (25.7-32.2) pg MCHC (32.2-35.5) g/dl RDW Std Deviation (35.1-43.9) fL Plt Count (163-337) K/mm3 MPV (9.4-12.3) fl Neut % (Auto) (34.0-67.9) % Lymph % (Auto) (21.8-53.1) % [place] % (Auto) (5.3-12.2) % Eos % (Auto) (0.8-7.0) Baso % (Auto) (0.1-1.2) % Neut # (Auto) (1.78-5.38) K/mm3 Lymph # (Auto) (1.32-3.57) K/mm3 [place] # (Auto) (0.30-0.82) K/mm3 Eos # (Auto) (0.04-0.54) K/mm3 Baso # (Auto) (0.01-0.08) K/mm3 Manual Slide Review ESR 74 H (0-15) mm/hr PT (9.7-12.0) SECONDS INR APTT (21.7-31.4) SECONDS D-Dimer, Quantitative (0.19-0.50) mg/L Sodium (136-145) mEq/L Potassium (3.5-5.1) mEq/L Chloride (98-107) mEq/L Carbon Dioxide (21-32) mEq/L Anion Gap (5-15) BUN (7-18) mg/dL Creatinine (0.7-1.3) mg/dL Est Cr Clr Drug Dosing mL/min Estimated GFR (MDRD) (>60) mL/min BUN/Creatinine Ratio (14-18) Glucose (83-115) mg/dL Lactic Acid (0.4-2.0) mmol/L Calcium (8.5-10.1) mg/dL Phosphorus (2.6-4.7) mg/dL Magnesium 1.9 (1.8-2.4) mg/dl Ferritin (26-388) ng/ml Total Bilirubin (0.2-1.0) mg/dL AST (15-37) U/L ALT (16-63) U/L Alkaline Phosphatase (46-116) U/L Lactate Dehydrogenase (85-227) U/L Troponin I (0.00-0.056) ng/mL C-Reactive Protein 24.2 H* (<1.0) mg/dL NT-Pro-B Natriuret Pep 308 H (0-125) pg/mL Total Protein (6.4-8.2) g/dl Albumin (3.4-5.0) g/dl Globulin gm/dL Albumin/Globulin Ratio (1-2) 07/18/20 07/18/20 07/18/20 Range/Units 14:57 14:57 14:57 WBC (4.23-9.07) K/mm3 RBC (4.63-6.08) M/mm3 Hgb (13.7-17.5) gm/dl Hct (40.1-51.0) % MCV (79.0-92.2) fl MCH (25.7-32.2) pg MCHC (32.2-35.5) g/dl RDW Std Deviation (35.1-43.9) fL Plt Count (163-337) K/mm3 MPV (9.4-12.3) fl Neut % (Auto) (34.0-67.9) % Lymph % (Auto) (21.8-53.1) % [place] % (Auto) (5.3-12.2) % Eos % (Auto) (0.8-7.0) Baso % (Auto) (0.1-1.2) % Neut # (Auto) (1.78-5.38) K/mm3 Lymph # (Auto) (1.32-3.57) K/mm3 [place] # (Auto) (0.30-0.82) K/mm3 Eos # (Auto) (0.04-0.54) K/mm3 Baso # (Auto) (0.01-0.08) K/mm3 Manual Slide Review ESR (0-15) mm/hr PT (9.7-12.0) SECONDS INR APTT (21.7-31.4) SECONDS D-Dimer, Quantitative 1.38 H (0.19-0.50) mg/L Sodium (136-145) mEq/L Potassium (3.5-5.1) mEq/L Chloride (98-107) mEq/L Carbon Dioxide (21-32) mEq/L Anion Gap (5-15) BUN (7-18) mg/dL Creatinine (0.7-1.3) mg/dL Est Cr Clr Drug Dosing mL/min Estimated GFR (MDRD) (>60) mL/min BUN/Creatinine Ratio (14-18) Glucose (83-115) mg/dL Lactic Acid 1.6 (0.4-2.0) mmol/L Calcium (8.5-10.1) mg/dL Phosphorus (2.6-4.7) mg/dL Magnesium (1.8-2.4) mg/dl Ferritin (26-388) ng/ml Total Bilirubin (0.2-1.0) mg/dL AST (15-37) U/L ALT (16-63) U/L Alkaline Phosphatase (46-116) U/L Lactate Dehydrogenase 327 H (85-227) U/L Troponin I (0.00-0.056) ng/mL C-Reactive Protein (<1.0) mg/dL NT-Pro-B Natriuret Pep (0-125) pg/mL Total Protein (6.4-8.2) g/dl Albumin (3.4-5.0) g/dl Globulin gm/dL Albumin/Globulin Ratio (1-2) 07/18/20 07/19/20 07/19/20 Range/Units 14:57 04:58 04:58 WBC 6.16 (4.23-9.07) K/mm3 RBC 4.51 L (4.63-6.08) M/mm3 Hgb 13.9 (13.7-17.5) gm/dl Hct 42.7 (40.1-51.0) % MCV 94.7 H (79.0-92.2) fl MCH 30.8 (25.7-32.2) pg MCHC 32.6 (32.2-35.5) g/dl RDW Std Deviation 43.7 (35.1-43.9) fL Plt Count 143 L (163-337) K/mm3 MPV 10.2 (9.4-12.3) fl Neut % (Auto) 87.6 H (34.0-67.9) % Lymph % (Auto) 8.8 L (21.8-53.1) % [place] % (Auto) 3.4 L (5.3-12.2) % Eos % (Auto) 0 L (0.8-7.0) Baso % (Auto) 0.0 L (0.1-1.2) % Neut # (Auto) 5.40 H (1.78-5.38) K/mm3 Lymph # (Auto) 0.54 L (1.32-3.57) K/mm3 [place] # (Auto) 0.21 L (0.30-0.82) K/mm3 Eos # (Auto) 0.00 L (0.04-0.54) K/mm3 Baso # (Auto) 0.00 L (0.01-0.08) K/mm3 Manual Slide Review Abnormal smear ESR (0-15) mm/hr PT (9.7-12.0) SECONDS INR APTT (21.7-31.4) SECONDS D-Dimer, Quantitative 1.18 H (0.19-0.50) mg/L Sodium (136-145) mEq/L Potassium (3.5-5.1) mEq/L Chloride (98-107) mEq/L Carbon Dioxide (21-32) mEq/L Anion Gap (5-15) BUN (7-18) mg/dL Creatinine (0.7-1.3) mg/dL Est Cr Clr Drug Dosing mL/min Estimated GFR (MDRD) (>60) mL/min BUN/Creatinine Ratio (14-18) Glucose (83-115) mg/dL Lactic Acid (0.4-2.0) mmol/L Calcium (8.5-10.1) mg/dL Phosphorus (2.6-4.7) mg/dL Magnesium (1.8-2.4) mg/dl Ferritin 3133 H (26-388) ng/ml Total Bilirubin (0.2-1.0) mg/dL AST (15-37) U/L ALT (16-63) U/L Alkaline Phosphatase (46-116) U/L Lactate Dehydrogenase (85-227) U/L Troponin I (0.00-0.056) ng/mL C-Reactive Protein (<1.0) mg/dL NT-Pro-B Natriuret Pep (0-125) pg/mL Total Protein (6.4-8.2) g/dl Albumin (3.4-5.0) g/dl Globulin gm/dL Albumin/Globulin Ratio (1-2) 07/19/20 Range/Units 04:58 WBC (4.23-9.07) K/mm3 RBC (4.63-6.08) M/mm3 Hgb (13.7-17.5) gm/dl Hct (40.1-51.0) % MCV (79.0-92.2) fl MCH (25.7-32.2) pg MCHC (32.2-35.5) g/dl RDW Std Deviation (35.1-43.9) fL Plt Count (163-337) K/mm3 MPV (9.4-12.3) fl Neut % (Auto) (34.0-67.9) % Lymph % (Auto) (21.8-53.1) % [place] % (Auto) (5.3-12.2) % Eos % (Auto) (0.8-7.0) Baso % (Auto) (0.1-1.2) % Neut # (Auto) (1.78-5.38) K/mm3 Lymph # (Auto) (1.32-3.57) K/mm3 [place] # (Auto) (0.30-0.82) K/mm3 Eos # (Auto) (0.04-0.54) K/mm3 Baso # (Auto) (0.01-0.08) K/mm3 Manual Slide Review ESR (0-15) mm/hr PT (9.7-12.0) SECONDS INR APTT (21.7-31.4) SECONDS D-Dimer, Quantitative (0.19-0.50) mg/L Sodium 138 (136-145) mEq/L Potassium 4.0 (3.5-5.1) mEq/L Chloride 103 (98-107) mEq/L Carbon Dioxide 28 (21-32) mEq/L Anion Gap 11.0 (5-15) BUN 20 H (7-18) mg/dL Creatinine 1.0 (0.7-1.3) mg/dL Est Cr Clr Drug Dosing 72.16 mL/min Estimated GFR (MDRD) > 60 (>60) mL/min BUN/Creatinine Ratio 20.0 H (14-18) Glucose 178 H (83-115) mg/dL Lactic Acid (0.4-2.0) mmol/L Calcium 8.4 L (8.5-10.1) mg/dL Phosphorus 1.5 L (2.6-4.7) mg/dL Magnesium 2.2 (1.8-2.4) mg/dl Ferritin (26-388) ng/ml Total Bilirubin 0.3 (0.2-1.0) mg/dL AST 39 H (15-37) U/L ALT 40 (16-63) U/L Alkaline Phosphatase 33 L (46-116) U/L Lactate Dehydrogenase (85-227) U/L Troponin I (0.00-0.056) ng/mL C-Reactive Protein 25.5 H* (<1.0) mg/dL NT-Pro-B Natriuret Pep (0-125) pg/mL Total Protein 7.4 (6.4-8.2) g/dl Albumin 2.6 L (3.4-5.0) g/dl Globulin 4.8 gm/dL Albumin/Globulin Ratio 0.5 L (1-2) Med Orders - Current: Current Medications Acetaminophen (Tylenol) 650 mg PO Q4H PRN PRN Reason: Pain (Mild 1-3)/fever Dexamethasone (Dexamethasone) 6 mg PO DAILY [facility] Stop: 07/27/20 09:01 Last Admin: 07/19/20 08:26 Dose: 6 mg Documented by: Enoxaparin Sodium (Lovenox) 40 mg SUBCUT DAILY [facility] Last Admin: 07/19/20 08:30 Dose: 40 mg Documented by: Dextrose/Lactated Ringer's (Dextrose 5%-Lactated Ringers) 1,000 mls @ 150 mls/hr IV ASDIRECTED [facility] Last Admin: 07/18/20 15:02 Dose: 150 mls/hr Documented by: Remdesivir 100 mg/ Sodium (Chloride) 100 mls @ 100 mls/hr IV Q24H [facility] Stop: 07/22/20 18:14 Metoprolol Tartrate (Lopressor) 50 mg PO BID [facility] Last Admin: 07/19/20 08:29 Dose: 50 mg Documented by: Ondansetron HCl (Zofran) 4 mg IV Q4H PRN PRN Reason: Nausea/Vomiting Discontinued Medications Acetaminophen (Tylenol) 975 mg PO ONETIME ONE Stop: 07/18/20 16:19 Last Admin: 07/18/20 16:33 Dose: 975 mg Documented by: Dexamethasone (Decadron) 6 mg IVPUSH ONETIME ONE Stop: 07/18/20 16:11 Last Admin: 07/18/20 16:32 Dose: 6 mg Documented by: Remdesivir 200 mg/ Sodium (Chloride) 250 mls @ 250 mls/hr IV ONETIME ONE Stop: 07/18/20 17:12 Last Admin: 07/18/20 17:43 Dose: 250 mls/hr Documented by: Ibuprofen (Motrin) 600 mg PO ONETIME ONE Stop: 07/18/20 14:31 Last Admin: 07/18/20 15:03 Dose: 600 mg Documented by: - Exam Quality Assessment: Supplemental Oxygen, DVT Prophylaxis General: Alert, Oriented, Cooperative, No Acute Distress HEENT: Pupils Equal, Pupils Reactive, Mucous Membr. Moist/[place] Neck: Supple, Trachea Midline Lungs: Normal Respiratory Effort, Decreased Breath Sounds Cardiovascular: Regular Rate, Regular Rhythm GI/Abdominal Exam: Normal Bowel Sounds, Soft, Non-Tender, No Distention (Male) Exam: Deferred Back Exam: Normal Inspection, Full Range of Motion Extremities: Normal Inspection, Normal Range of Motion, Non-Tender, No Pedal Edema, Other (Left index finger and thumb amputation ) Skin: Warm, Dry, Intact Neurological: No New Focal Deficit Psy/Mental Status: Alert, Normal Affect, Normal Mood Sepsis Event Note - Evaluation Sepsis Screening Result: No Definite Risk - Focused Exam Vital Signs: Vital Signs Temp Pulse Pulse Resp BP BP Pulse Ox 07/19/20 08:29 90 160/83 H 07/19/20 08:00 97.8 F 90 20 160/83 H 90 L 07/19/20 06:17 07/19/20 04:00 97 F 67 20 135/65 94 L 07/19/20 00:17 96.9 F 71 21 H 127/63 93 L 07/18/20 22:03 78 136/75 Pulse Ox 07/19/20 08:29 07/19/20 08:00 07/19/20 06:17 91 L 07/19/20 04:00 07/19/20 00:17 07/18/20 22:03 - Problem List & Annotations (1) COVID-19 determined by clinical diagnostic criteria SNOMED Code(s): 472559525, 483558479 Code(s): U07.1 - COVID-19 Status: Acute Priority: High Current Visit: Yes (2) Hypertension SNOMED Code(s): 01831228 Code(s): I10 - ESSENTIAL (PRIMARY) HYPERTENSION Status: Acute Priority: High Current Visit: Yes Qualifiers: Hypertension type: unspecified Qualified Code(s): I10 - Essential (primary) hypertension (3) Pneumonia due to COVID-19 virus SNOMED Code(s): 552177383431152302 Code(s): U07.1 - COVID-19; J12.89 - OTHER VIRAL PNEUMONIA Status: Acute Priority: High Current Visit: Yes (4) Hypoxia SNOMED Code(s): 646933432 Code(s): R09.02 - HYPOXEMIA Status: Acute Priority: High Current Visit: Yes (5) Hypophosphatemia SNOMED Code(s): 3155978 Code(s): E83.39 - OTHER DISORDERS OF PHOSPHORUS METABOLISM Status: Acute Priority: High Current Visit: Yes - Problem List Review Problem List Initiated/Reviewed/Updated: Yes - Assessment Assessment:: Assessment - Day of admission - 07/18/2020 COVID-19 infection with pneumonia and hypoxemia * Initial symptoms started on July 07 with positive diagnosis on the . * Initial symptoms included fever, chills, nonproductive cough, sore throat, myalgias. * Recurrence of fever over the last couple days as high as 104 in the emergency department today. * Increasing weakness and fatigue likely secondary to poor oral intake and hypoxemia. * Started on dexamethasone and remdesivir in the emergency department while awaiting admission. Hypertension * On metoprolol 50 mg twice daily at home * Blood pressure on admission was 155/64 * No history of heart disease, congestive heart failure, or lung disease. * Stopped smoking in 1999. 07/19/2020 COVID-19 infection with pneumonia and hypoxemia * Ambulating around room * Continues to utilize acapella and IS * On 5L O2 * Dry cough with pleuritic chest pain when coughing * Denies GI symptoms * WBC 6.16 * D-Dimer 1.18 * Creatinine 1.1 with GFR >60 * CRP 25.5 * Remdesivir - day 2 * Dexamethasone - day 2 Hypertension * Continue metoprolol 50 mg twice daily at home * Blood pressure on admission was 155/64; Today 157/67 * No history of heart disease, congestive heart failure, or lung disease. * Stopped smoking in 1999 * Monitor Hyperphosphatemia * Phosphorous 1.5 * Supplemented - Plan Plan:: Plan * Admit to medical floor on telemetry and continuous pulse ox * Continue remdesivir and dexamethasone. * FiO2 to keep SPO2 88% to 94% * Dietary consult, encourage protein intake and good nutrition. * Patient takes vitamin D and zinc at home and will continue the above. * Continue metoprolol 50 mg twice daily * Daily labs as ordered * Supplement phospate today and re-check lab tomorrow * VTE prophylaxis with Lovenox * CODE STATUS: Full code
[2020-07-19] MEDS: Phosphorus #1 250 MG Tab PO SCH ×2 (12:43→20:28)
[2020-07-19] MEDS: REMDESIVIR 100 MG in Sodium Chloride 0.9% 100 ML IV SCH (17:43)
[2020-07-19] MEDS: Ascorbic Acid 500 MG Tab PO SCH (20:27)
[2020-07-19] MEDS: Cholecalciferol (Vitamin D3) 25 MCG Tab PO SCH (20:27)
--- NOTE | 2020-07-20 07:42 | PCM.PN ---
- General Info Date of Service: 07/20/20 Admission Dx/Problem (Free Text): Admission Diagnosis/Problem Admission Diagnosis/Problem Hypoxia Subjective Update: In to see Jorge. He is sitting up at the end of the bed and requesting a shower from nursing. He clinically looks better, although he is requiring 4L of oxygen. He has been working with PT/OT. He reports he feels better today than yesterday. Labs remain stable. Elevated WBC is likely 2/2 steroid use. CRP is improving. Continue current treatment plan. Functional Status: Reports: Pain Controlled, Tolerating Diet, Ambulating, Urinating, Incentive Spirometry, Other (acapella ). Denies: New Symptoms - Review of Systems General: Reports: Weakness, Fatigue. Denies: Fever, Malaise, Chills HEENT: Reports: No Symptoms. Denies: Headaches, Sore Throat Pulmonary: Reports: Shortness of Breath, Cough. Denies: Pleuritic Chest Pain, Sputum, Wheezing Cardiovascular: Reports: Dyspnea on Exertion. Denies: Chest Pain, Palpitations, Edema Gastrointestinal: Reports: No Symptoms. Denies: Abdominal Pain, Constipation, Diarrhea, Nausea, Vomiting Genitourinary: Reports: No Symptoms. Denies: Pain Musculoskeletal: Reports: No Symptoms Skin: Reports: No Symptoms. Denies: Cyanosis Neurological: Denies: Confusion, Difficulty Walking, Gait Disturbance Psychiatric: Reports: No Symptoms - Patient Data Vitals - Most Recent: Last Vital Signs Temp 98.4 F 07/20/20 04:00 Pulse 95 07/19/20 20:26 Resp 18 07/20/20 04:00 BP 137/54 L 07/20/20 04:00 Pulse Ox 91 L 07/20/20 06:09 Weight - Most Recent: 200 lb 14.4 oz I&O - Last 24 Hours: Intake & Output 07/19/20 07/20/20 07/20/20 22:59 06:59 14:59 Intake Total 1100 400 Output Total 500 Balance 600 400 Lab Results Last 24 Hours: Laboratory Results - last 24 hr 07/18/20 07/20/20 07/20/20 Range/Units 14:57 05:02 05:02 WBC 13.28 H (4.23-9.07) K/mm3 RBC 4.08 L (4.63-6.08) M/mm3 Hgb 12.9 L (13.7-17.5) gm/dl Hct 38.4 L (40.1-51.0) % MCV 94.1 H (79.0-92.2) fl MCH 31.6 (25.7-32.2) pg MCHC 33.6 (32.2-35.5) g/dl RDW Std Deviation 43.3 (35.1-43.9) fL Plt Count 208 (163-337) K/mm3 MPV 10.3 (9.4-12.3) fl Neut % (Auto) 88.5 H (34.0-67.9) % Lymph % (Auto) 6.3 L (21.8-53.1) % [place] % (Auto) 4.8 L (5.3-12.2) % Eos % (Auto) 0 L (0.8-7.0) Baso % (Auto) 0.2 (0.1-1.2) % Neut # (Auto) 11.76 H (1.78-5.38) K/mm3 Lymph # (Auto) 0.83 L (1.32-3.57) K/mm3 [place] # (Auto) 0.64 (0.30-0.82) K/mm3 Eos # (Auto) 0.00 L (0.04-0.54) K/mm3 Baso # (Auto) 0.02 (0.01-0.08) K/mm3 Manual Slide Review Abnormal smear D-Dimer, Quantitative 1.20 H (0.19-0.50) mg/L Sodium (136-145) mEq/L Potassium (3.5-5.1) mEq/L Chloride (98-107) mEq/L Carbon Dioxide (21-32) mEq/L Anion Gap (5-15) BUN (7-18) mg/dL Creatinine (0.7-1.3) mg/dL Est Cr Clr Drug Dosing mL/min Estimated GFR (MDRD) (>60) mL/min BUN/Creatinine Ratio (14-18) Glucose (83-115) mg/dL Calcium (8.5-10.1) mg/dL Phosphorus (2.6-4.7) mg/dL Magnesium (1.8-2.4) mg/dl Total Bilirubin (0.2-1.0) mg/dL AST (15-37) U/L ALT (16-63) U/L Alkaline Phosphatase (46-116) U/L C-Reactive Protein (<1.0) mg/dL Total Protein (6.4-8.2) g/dl Albumin (3.4-5.0) g/dl Globulin gm/dL Albumin/Globulin Ratio (1-2) Procalcitonin 0.37 H (<0.10) ng/mL 07/20/20 Range/Units 05:02 WBC (4.23-9.07) K/mm3 RBC (4.63-6.08) M/mm3 Hgb (13.7-17.5) gm/dl Hct (40.1-51.0) % MCV (79.0-92.2) fl MCH (25.7-32.2) pg MCHC (32.2-35.5) g/dl RDW Std Deviation (35.1-43.9) fL Plt Count (163-337) K/mm3 MPV (9.4-12.3) fl Neut % (Auto) (34.0-67.9) % Lymph % (Auto) (21.8-53.1) % [place] % (Auto) (5.3-12.2) % Eos % (Auto) (0.8-7.0) Baso % (Auto) (0.1-1.2) % Neut # (Auto) (1.78-5.38) K/mm3 Lymph # (Auto) (1.32-3.57) K/mm3 [place] # (Auto) (0.30-0.82) K/mm3 Eos # (Auto) (0.04-0.54) K/mm3 Baso # (Auto) (0.01-0.08) K/mm3 Manual Slide Review D-Dimer, Quantitative (0.19-0.50) mg/L Sodium 142 (136-145) mEq/L Potassium 3.7 (3.5-5.1) mEq/L Chloride 106 (98-107) mEq/L Carbon Dioxide 26 (21-32) mEq/L Anion Gap 13.7 (5-15) BUN 28 H (7-18) mg/dL Creatinine 1.0 (0.7-1.3) mg/dL Est Cr Clr Drug Dosing 71.87 mL/min Estimated GFR (MDRD) > 60 (>60) mL/min BUN/Creatinine Ratio 28.0 H (14-18) Glucose 135 H (83-115) mg/dL Calcium 8.8 (8.5-10.1) mg/dL Phosphorus 3.6 (2.6-4.7) mg/dL Magnesium 2.0 (1.8-2.4) mg/dl Total Bilirubin 0.4 (0.2-1.0) mg/dL AST 47 H (15-37) U/L ALT 52 (16-63) U/L Alkaline Phosphatase 31 L (46-116) U/L C-Reactive Protein 14.1 H* (<1.0) mg/dL Total Protein 6.8 (6.4-8.2) g/dl Albumin 2.5 L (3.4-5.0) g/dl Globulin 4.3 gm/dL Albumin/Globulin Ratio 0.6 L (1-2) Procalcitonin (<0.10) ng/mL Twin Results Last 24 Hours: Microbiology 07/18/20 15:10 Aerobic Blood Culture - Preliminary Blood - Venous - Lab Draw NO GROWTH AFTER 1 DAY Anaerobic Blood Culture - Preliminary NO GROWTH AFTER 1 DAY 07/18/20 14:57 Aerobic Blood Culture - Preliminary Blood - Venous NO GROWTH AFTER 1 DAY Anaerobic Blood Culture - Preliminary NO GROWTH AFTER 1 DAY Med Orders - Current: Current Medications Acetaminophen (Tylenol) 650 mg PO Q4H PRN PRN Reason: Pain (Mild 1-3)/fever Ascorbic Acid (Vitamin C) 1,000 mg PO BID [facility] Last Admin: 07/19/20 20:27 Dose: 1,000 mg Documented by: Cholecalciferol (Vitamin D3) 25 mcg PO BID [facility] Last Admin: 07/19/20 20:27 Dose: 25 mcg Documented by: Dexamethasone (Dexamethasone) 6 mg PO DAILY [facility] Stop: 07/27/20 09:01 Last Admin: 07/19/20 08:26 Dose: 6 mg Documented by: Enoxaparin Sodium (Lovenox) 40 mg SUBCUT DAILY [facility] Last Admin: 07/19/20 08:30 Dose: 40 mg Documented by: Dextrose/Lactated Ringer's (Dextrose 5%-Lactated Ringers) 1,000 mls @ 150 mls/hr IV ASDIRECTED [facility] Last Admin: 07/18/20 15:02 Dose: 150 mls/hr Documented by: Remdesivir 100 mg/ Sodium (Chloride) 100 mls @ 100 mls/hr IV Q24H [facility] Stop: 07/22/20 18:14 Last Admin: 07/19/20 17:43 Dose: 100 mls/hr Documented by: Metoprolol Tartrate (Lopressor) 50 mg PO BID [facility] Last Admin: 07/19/20 20:26 Dose: 50 mg Documented by: Multivitamins (Thera) 1 each PO DAILY [facility] Ondansetron HCl (Zofran) 4 mg IV Q4H PRN PRN Reason: Nausea/Vomiting Discontinued Medications Acetaminophen (Tylenol) 975 mg PO ONETIME ONE Stop: 07/18/20 16:19 Last Admin: 07/18/20 16:33 Dose: 975 mg Documented by: Dexamethasone (Decadron) 6 mg IVPUSH ONETIME ONE Stop: 07/18/20 16:11 Last Admin: 07/18/20 16:32 Dose: 6 mg Documented by: Remdesivir 200 mg/ Sodium (Chloride) 250 mls @ 250 mls/hr IV ONETIME ONE Stop: 07/18/20 17:12 Last Admin: 07/18/20 17:43 Dose: 250 mls/hr Documented by: Ibuprofen (Motrin) 600 mg PO ONETIME ONE Stop: 07/18/20 14:31 Last Admin: 07/18/20 15:03 Dose: 600 mg Documented by: Sodium Phosphate (Neutra-Phos) 250 mg PO BID [facility] Stop: 07/19/20 21:01 Last Admin: 07/19/20 20:28 Dose: 250 mg Documented by: - Exam Quality Assessment: Supplemental Oxygen (4L), DVT Prophylaxis General: Alert, Oriented, Cooperative, No Acute Distress HEENT: Pupils Equal, Pupils Reactive, Mucous Membr. Moist/[place] Neck: Supple, Trachea Midline Lungs: Normal Respiratory Effort, Decreased Breath Sounds Cardiovascular: Regular Rate, Regular Rhythm GI/Abdominal Exam: Normal Bowel Sounds, Soft, Non-Tender, No Distention (Male) Exam: Deferred Back Exam: Normal Inspection, Full Range of Motion Extremities: Normal Inspection, Normal Range of Motion, Non-Tender, No Pedal Edema, Normal Capillary Refill Skin: Warm, Dry, Intact Neurological: No New Focal Deficit Psy/Mental Status: Alert, Normal Affect, Normal Mood Sepsis Event Note - Evaluation Sepsis Screening Result: No Definite Risk - Focused Exam Vital Signs: Vital Signs Temp Pulse Resp BP BP Pulse Ox Pulse Ox 07/20/20 06:09 91 L 07/20/20 04:00 98.4 F 18 137/54 L 90 L 07/20/20 00:00 97.3 F 18 92 L 07/19/20 20:26 95 156/68 H 07/19/20 20:00 98.3 F 20 156/68 H 88 L - Problem List & Annotations (1) COVID-19 determined by clinical diagnostic criteria SNOMED Code(s): 299034793, 826283174 Code(s): U07.1 - COVID-19 Status: Acute Priority: High Current Visit: Yes (2) Hypertension SNOMED Code(s): 00008030 Code(s): I10 - ESSENTIAL (PRIMARY) HYPERTENSION Status: Acute Priority: High Current Visit: Yes Qualifiers: Hypertension type: unspecified Qualified Code(s): I10 - Essential (primary) hypertension (3) Pneumonia due to COVID-19 virus SNOMED Code(s): 937157156717126604 Code(s): U07.1 - COVID-19; J12.89 - OTHER VIRAL PNEUMONIA Status: Acute Priority: High Current Visit: Yes (4) Hypoxia SNOMED Code(s): 888773876 Code(s): R09.02 - HYPOXEMIA Status: Acute Priority: High Current Visit: Yes (5) Hypophosphatemia SNOMED Code(s): 1845588 Code(s): E83.39 - OTHER DISORDERS OF PHOSPHORUS METABOLISM Status: Acute Priority: High Current Visit: Yes - Problem List Review Problem List Initiated/Reviewed/Updated: Yes - My Orders Last 24 Hours: My Active Orders 07/19/20 10:46 Consult to Occupational Therapy [OT Evaluation and Treatment] [CONS] Routine PT Evaluation and Treatment [CONS] Routine 07/19/20 14:47 Consult to Dietary [Consult to Booster Operator] [CONS] Routine 07/19/20 21:00 Ascorbic Acid [Vitamin C] 1,000 mg PO BID Cholecalciferol (Vitamin D3) [Vitamin D3] 25 mcg PO BID 07/20/20 09:00 Multivitamins,Therapeutic [Thera] 1 each PO DAILY - Assessment Assessment:: Assessment - Day of admission - 07/18/2020 COVID-19 infection with pneumonia and hypoxemia * Initial symptoms started on July 07 with positive diagnosis on the . * Initial symptoms included fever, chills, nonproductive cough, sore throat, myalgias. * Recurrence of fever over the last couple days as high as 104 in the emergency department today. * Increasing weakness and fatigue likely secondary to poor oral intake and hypoxemia. * Started on dexamethasone and remdesivir in the emergency department while awaiting admission. Hypertension * On metoprolol 50 mg twice daily at home * Blood pressure on admission was 155/64 * No history of heart disease, congestive heart failure, or lung disease. * Stopped smoking in 1999. 07/19/2020 COVID-19 infection with pneumonia and hypoxemia * Ambulating around room * Continues to utilize acapella and IS * On 5L O2 * Dry cough with pleuritic chest pain when coughing * Denies GI symptoms * WBC 6.16 * D-Dimer 1.18 * Creatinine 1.1 with GFR >60 * CRP 25.5 * Remdesivir - day 09/21 * Dexamethasone - day 2 Hypertension * Continue metoprolol 50 mg twice daily at home * Blood pressure on admission was 155/64; Today 157/67 * No history of heart disease, congestive heart failure, or lung disease. * Stopped smoking in 1999 * Monitor Hyperphosphatemia * Phosphorous 1.5 * Supplemented 07/20/2020 COVID-19 infection with pneumonia and hypoxemia * Ambulating around room * States he feels better and is working with PT/OT * Afebrile, VSS * Continues to utilize acapella and IS * On 4L O2 (improved from 5L) * Dry cough with pleuritic chest pain when coughing * Denies GI symptoms * WBC 6.36-->6.16-->13.28 (Steroid ?) * D-Dimer 1.38-->1.18-->1.20 * Creatinine 1.1 with GFR >60 * CRP 24.2-->25.5-->14.1 * Remdesivir - day 3 * Dexamethasone - day 3 Hypertension, stable * Continue metoprolol 50 mg twice daily at home * Blood pressure on admission was 155/64; Today 149/68 * No history of heart disease, congestive heart failure, or lung disease. * Stopped smoking in 1999 * Monitor Hyperphosphatemia, Resolved * Phosphorous 1.5-->3.6 - Plan Plan:: Plan * Admit to medical floor on telemetry and continuous pulse ox * Continue remdesivir and dexamethasone. * FiO2 to keep SPO2 88% to 94% * Dietary consult, encourage protein intake and good nutrition. * Patient takes vitamin D and zinc at home and will continue the above. * Continue metoprolol 50 mg twice daily * Daily labs as ordered * VTE prophylaxis with Lovenox * CODE STATUS: Full code
[2020-07-20] MEDS: Dexamethasone 4 MG Tab PO SCH (08:06)
[2020-07-20] MEDS: Enoxaparin 40 MG/0.4 ML Syringe SUBCUT SCH (08:06)
[2020-07-20] MEDS: Multivitamins,Therapeutic Tab PO SCH (08:07)
[2020-07-20] MEDS: Ascorbic Acid 500 MG Tab PO SCH ×2 (08:07→20:19)
[2020-07-20] MEDS: Metoprolol Tartrate 50 MG Tab PO SCH ×2 (08:08→20:20)
[2020-07-20] MEDS: Cholecalciferol (Vitamin D3) 25 MCG Tab PO SCH ×2 (08:08→20:19)
[2020-07-20] MEDS: REMDESIVIR 100 MG in Sodium Chloride 0.9% 100 ML IV SCH (16:16)
[2020-07-21] MEDS: Dexamethasone 4 MG Tab PO SCH (08:18)
[2020-07-21] MEDS: Cholecalciferol (Vitamin D3) 25 MCG Tab PO SCH ×2 (08:18→20:34)
[2020-07-21] MEDS: Enoxaparin 40 MG/0.4 ML Syringe SUBCUT SCH (08:18)
[2020-07-21] MEDS: Multivitamins,Therapeutic Tab PO SCH (08:19)
[2020-07-21] MEDS: Ascorbic Acid 500 MG Tab PO SCH ×2 (08:19→20:34)
[2020-07-21] MEDS: Metoprolol Tartrate 50 MG Tab PO SCH ×2 (08:21→20:34)
[2020-07-21] MEDS: REMDESIVIR 100 MG in Sodium Chloride 0.9% 100 ML IV SCH (16:17)
[2020-07-21] MEDS ORDERED: hydrALAZINE 20 MG/ML SDV IVPUSH ONE (17:20)
[2020-07-21] MEDS ORDERED: hydrALAZINE 20 MG/ML SDV ONE (17:22)
--- NOTE | 2020-07-21 20:07 | PCM.PN ---
- General Info Date of Service: 07/21/20 Admission Dx/Problem (Free Text): Admission Diagnosis/Problem Admission Diagnosis/Problem Hypoxia Subjective Update: Jorge is doing well. He is down to 3 L. Appetite is good. Functional Status: Reports: Pain Controlled - Review of Systems General: Reports: No Symptoms HEENT: Reports: No Symptoms Pulmonary: Reports: Shortness of Breath, Cough Cardiovascular: Reports: No Symptoms Gastrointestinal: Reports: No Symptoms Musculoskeletal: Reports: No Symptoms Neurological: Reports: No Symptoms Psychiatric: Reports: No Symptoms - Patient Data Vitals - Most Recent: Last Vital Signs Temp 96.7 F L 07/21/20 17:03 Pulse 79 07/21/20 18:00 Resp 18 07/21/20 17:03 BP 158/97 H 07/21/20 18:00 Pulse Ox 94 L 07/21/20 17:03 Weight - Most Recent: 203 lb 11.314 oz I&O - Last 24 Hours: Intake & Output 07/21/20 07/21/20 07/21/20 06:59 14:59 22:59 Intake Total 399 720 8729 Output Total 350 800 Balance -250 360 520 Lab Results Last 24 Hours: Laboratory Results - last 24 hr 07/21/20 07/21/20 07/21/20 Range/Units 06:47 06:47 06:47 WBC 11.13 H (4.23-9.07) K/mm3 RBC 4.15 L (4.63-6.08) M/mm3 Hgb 13.0 L (13.7-17.5) gm/dl Hct 39.2 L (40.1-51.0) % MCV 94.5 H (79.0-92.2) fl MCH 31.3 (25.7-32.2) pg MCHC 33.2 (32.2-35.5) g/dl RDW Std Deviation 43.4 (35.1-43.9) fL Plt Count 222 (163-337) K/mm3 MPV 10.1 (9.4-12.3) fl Neut % (Auto) 83.6 H (34.0-67.9) % Lymph % (Auto) 9.8 L (21.8-53.1) % [place] % (Auto) 5.8 (5.3-12.2) % Eos % (Auto) 0 L (0.8-7.0) Baso % (Auto) 0.3 (0.1-1.2) % Neut # (Auto) 9.30 H (1.78-5.38) K/mm3 Lymph # (Auto) 1.09 L (1.32-3.57) K/mm3 [place] # (Auto) 0.65 (0.30-0.82) K/mm3 Eos # (Auto) 0.00 L (0.04-0.54) K/mm3 Baso # (Auto) 0.03 (0.01-0.08) K/mm3 Manual Slide Review Abnormal smear D-Dimer, Quantitative 1.44 H (0.19-0.50) mg/L Sodium 142 (136-145) mEq/L Potassium 3.9 (3.5-5.1) mEq/L Chloride 107 (98-107) mEq/L Carbon Dioxide 25 (21-32) mEq/L Anion Gap 13.9 (5-15) BUN 28 H (7-18) mg/dL Creatinine 1.0 (0.7-1.3) mg/dL Est Cr Clr Drug Dosing 69.96 mL/min Estimated GFR (MDRD) > 60 (>60) mL/min BUN/Creatinine Ratio 28.0 H (14-18) Glucose 126 H (83-115) mg/dL Calcium 8.7 (8.5-10.1) mg/dL Phosphorus 4.5 (2.6-4.7) mg/dL Magnesium 2.1 (1.8-2.4) mg/dl Total Bilirubin 0.4 (0.2-1.0) mg/dL AST 111 H (15-37) U/L ALT 144 H (16-63) U/L Alkaline Phosphatase 34 L (46-116) U/L C-Reactive Protein 6.4 H* (<1.0) mg/dL Total Protein 6.6 (6.4-8.2) g/dl Albumin 2.4 L (3.4-5.0) g/dl Globulin 4.2 gm/dL Albumin/Globulin Ratio 0.6 L (1-2) Twin Results Last 24 Hours: Microbiology 07/18/20 15:10 Aerobic Blood Culture - Preliminary Blood - Venous - Lab Draw NO GROWTH AFTER 3 DAYS Anaerobic Blood Culture - Preliminary NO GROWTH AFTER 3 DAYS 12/02/20 14:57 Aerobic Blood Culture - Preliminary Blood - Venous NO GROWTH AFTER 3 DAYS Anaerobic Blood Culture - Preliminary NO GROWTH AFTER 3 DAYS Med Orders - Current: Current Medications Acetaminophen (Tylenol) 650 mg PO Q4H PRN PRN Reason: Pain (Mild 1-3)/fever Ascorbic Acid (Vitamin C) 1,000 mg PO BID [facility] Last Admin: 07/21/20 08:19 Dose: 1,000 mg Documented by: Cholecalciferol (Vitamin D3) 25 mcg PO BID [facility] Last Admin: 07/21/20 08:18 Dose: 25 mcg Documented by: Dexamethasone (Dexamethasone) 6 mg PO DAILY [facility] Stop: 07/27/20 09:01 Last Admin: 07/21/20 08:18 Dose: 6 mg Documented by: Enoxaparin Sodium (Lovenox) 40 mg SUBCUT DAILY [facility] Last Admin: 07/21/20 08:18 Dose: 40 mg Documented by: Dextrose/Lactated Ringer's (Dextrose 5%-Lactated Ringers) 1,000 mls @ 150 mls/hr IV ASDIRECTED [facility] Last Admin: 07/18/20 15:02 Dose: 150 mls/hr Documented by: Remdesivir 100 mg/ Sodium (Chloride) 100 mls @ 100 mls/hr IV Q24H [facility] Stop: 07/22/20 18:14 Last Admin: 07/21/20 16:17 Dose: 100 mls/hr Documented by: Metoprolol Tartrate (Lopressor) 50 mg PO BID [facility] Last Admin: 07/21/20 08:21 Dose: 50 mg Documented by: Multivitamins (Thera) 1 each PO DAILY [facility] Last Admin: 07/21/20 08:19 Dose: 1 each Documented by: Ondansetron HCl (Zofran) 4 mg IV Q4H PRN PRN Reason: Nausea/Vomiting Discontinued Medications Acetaminophen (Tylenol) 975 mg PO ONETIME ONE Stop: 07/18/20 16:19 Last Admin: 07/18/20 16:33 Dose: 975 mg Documented by: Dexamethasone (Decadron) 6 mg IVPUSH ONETIME ONE Stop: 07/18/20 16:11 Last Admin: 07/18/20 16:32 Dose: 6 mg Documented by: Hydralazine HCl (Apresoline) 10 mg IVPUSH ONETIME ONE Stop: 07/21/20 17:21 Last Admin: 07/21/20 17:24 Dose: 10 mg Documented by: Hydralazine HCl (Apresoline) Confirm Administered Dose 20 mg .ROUTE .STK-MED ONE Stop: 07/21/20 17:23 Last Admin: 07/21/20 17:46 Dose: Not Given Documented by: Remdesivir 200 mg/ Sodium (Chloride) 250 mls @ 250 mls/hr IV ONETIME ONE Stop: 07/18/20 17:12 Last Admin: 07/18/20 17:43 Dose: 250 mls/hr Documented by: Ibuprofen (Motrin) 600 mg PO ONETIME ONE Stop: 07/18/20 14:31 Last Admin: 07/18/20 15:03 Dose: 600 mg Documented by: Sodium Phosphate (Neutra-Phos) 250 mg PO BID [facility] Stop: 07/19/20 21:01 Last Admin: 07/19/20 20:28 Dose: 250 mg Documented by: - Exam Quality Assessment: Supplemental Oxygen General: Alert, Oriented HEENT: Pupils Equal, Mucous Membr. Moist/[place] Neck: Supple Lungs: [place]ales. No: Normal Respiratory Effort Cardiovascular: Regular Rate, Regular Rhythm GI/Abdominal Exam: Normal Bowel Sounds, Soft, Non-Tender, No Distention Extremities: Normal Inspection, Normal Range of Motion, Non-Tender, No Pedal Edema, Normal Capillary Refill Skin: Warm, Dry, Intact Psy/Mental Status: Alert, Normal Affect, Normal Mood Sepsis Event Note - Evaluation Sepsis Screening Result: No Definite Risk - Focused Exam Vital Signs: Vital Signs Temp Pulse Pulse Resp BP BP Pulse Ox 07/21/20 18:00 79 158/97 H 07/21/20 17:48 69 177/67 H 07/21/20 17:03 96.7 F L 77 18 189/81 H 94 L 07/21/20 12:00 97.7 F 79 20 136/72 94 L 07/21/20 08:21 65 155/63 H 07/21/20 08:10 Pulse Ox 07/21/20 18:00 07/21/20 17:48 07/21/20 17:03 07/21/20 12:00 07/21/20 08:21 07/21/20 08:10 95 - Problem List & Annotations (1) Hypertension SNOMED Code(s): 51070813 Code(s): I10 - ESSENTIAL (PRIMARY) HYPERTENSION Status: Acute Priority: High Current Visit: Yes Qualifiers: Hypertension type: unspecified Qualified Code(s): I10 - Essential (primary) hypertension (2) Pneumonia due to COVID-19 virus SNOMED Code(s): 142553254243968322 Code(s): U07.1 - COVID-19; J12.89 - OTHER VIRAL PNEUMONIA Status: Acute Priority: High Current Visit: Yes (3) COVID-19 determined by clinical diagnostic criteria SNOMED Code(s): 251919439, 963307119 Code(s): U07.1 - COVID-19 Status: Acute Priority: High Current Visit: Yes - Problem List Review Problem List Initiated/Reviewed/Updated: Yes - My Orders Last 24 Hours: My Active Orders 07/22/20 05:11 C-REACTIVE PROTEIN [CHEM] AM CBC WITH AUTO DIFF [HEME] AM CMP [COMPREHENSIVE METABOLIC PN,CMP] [CHEM] AM DD [D-DIMER QUANTITATIVE] [COAG] AM MAGNESIUM [CHEM] AM PHOSPHORUS [CHEM] AM 07/23/20 05:11 C-REACTIVE PROTEIN [CHEM] AM CBC WITH AUTO DIFF [HEME] AM CMP [COMPREHENSIVE METABOLIC PN,CMP] [CHEM] AM DD [D-DIMER QUANTITATIVE] [COAG] AM MAGNESIUM [CHEM] AM PHOSPHORUS [CHEM] AM - Assessment Assessment:: Assessment - Day of admission - 07/18/2020 COVID-19 infection with pneumonia and hypoxemia * Initial symptoms started on July 07 with positive diagnosis on the . * Initial symptoms included fever, chills, nonproductive cough, sore throat, myalgias. * Recurrence of fever over the last couple days as high as 104 in the emergency department today. * Increasing weakness and fatigue likely secondary to poor oral intake and hypoxemia. * Started on dexamethasone and remdesivir in the emergency department while awaiting admission. Hypertension * On metoprolol 50 mg twice daily at home * Blood pressure on admission was 155/64 * No history of heart disease, congestive heart failure, or lung disease. * Stopped smoking in 1999. 07/19/2020 COVID-19 infection with pneumonia and hypoxemia * Ambulating around room * Continues to utilize acapella and IS * On 5L O2 * Dry cough with pleuritic chest pain when coughing * Denies GI symptoms * WBC 6.16 * D-Dimer 1.18 * Creatinine 1.1 with GFR >60 * CRP 25.5 * Remdesivir - day 2/5 * Dexamethasone - day 2/5 Hypertension * Continue metoprolol 50 mg twice daily at home * Blood pressure on admission was 155/64; Today 157/67 * No history of heart disease, congestive heart failure, or lung disease. * Stopped smoking in 1999 * Monitor Hyperphosphatemia * Phosphorous 1.5 * Supplemented 07/20/2020 COVID-19 infection with pneumonia and hypoxemia * Ambulating around room * States he feels better and is working with PT/OT * Afebrile, VSS * Continues to utilize acapella and IS * On 4L O2 (improved from 5L) * Dry cough with pleuritic chest pain when coughing * Denies GI symptoms * WBC 6.36-->6.16-->13.28 (Steroid ?) * D-Dimer 1.38-->1.18-->1.20 * Creatinine 1.1 with GFR >60 * CRP 24.2-->25.5-->14.1 * Remdesivir - day 3/ * Dexamethasone - day 3/ Hypertension, stable * Continue metoprolol 50 mg twice daily at home * Blood pressure on admission was 155/64; Today 149/68 * No history of heart disease, congestive heart failure, or lung disease. * Stopped smoking in 1999 * Monitor Hyperphosphatemia, Resolved * Phosphorous 1.5-->3.6 July 21, 2020 COVID-19 infection with pneumonia and hypoxemia Hypoalbuminemia * Ambulating around room * Continues to feel better and is working with PT/OT * Afebrile, VSS * Continues to utilize acapella and IS * On 3L O2 (improved from 5L) * Dry cough with pleuritic chest pain when coughing * Denies GI symptoms * WBC 6.36-->6.16-->13.28 --> 11.1 * D-Dimer 1.38-->1.18-->1.20--> 1.44 * Creatinine 1.0 with GFR >60 * CRP 24.2-->25.5-->14.1--> 6.4 * Albumin 2.4 * Remdesivir - day 4/5 * Dexamethasone - day 4/5 Hypertension, stable * Continue metoprolol 50 mg twice daily at home * Blood pressure on admission was 155/64; Today 149/68 * No history of heart disease, congestive heart failure, or lung disease. * Stopped smoking in 1999 * Monitor Hyperphosphatemia, Resolved - Plan Plan:: Plan * Continue current management * Admit to medical floor on telemetry and continuous pulse ox * Continue remdesivir and dexamethasone. * FiO2 to keep SPO2 88% to 94% * Dietary consult, encourage protein intake and good nutrition. * Patient takes vitamin D and zinc at home and will continue the above. * Continue metoprolol 50 mg twice daily * Daily labs as ordered * VTE prophylaxis with Lovenox * CODE STATUS: Full code
[2020-07-21] MEDS ORDERED: hydrALAZINE 20 MG/ML SDV IVPUSH PRN (21:19)
[2020-07-22 07:56] LABS: VITAMIN D,25-HYDROXY 62.2 ng/ml (30.0-100.0)
--- NOTE | 2020-07-22 09:04 | PCM.PN ---
- General Info Date of Service: 07/22/20 Admission Dx/Problem (Free Text): Admission Diagnosis/Problem Admission Diagnosis/Problem Hypoxia Subjective Update: Patient had elevated blood pressure yesterday requiring hydralazine. He was started on chlorthalidone this morning. Patient states otherwise he is feeling well. Oxygenation has worsened and he is now on 6 L nasal cannula. Functional Status: Reports: Pain Controlled - Review of Systems General: Reports: No Symptoms HEENT: Reports: No Symptoms Pulmonary: Reports: Shortness of Breath Cardiovascular: Reports: No Symptoms Gastrointestinal: Reports: No Symptoms Musculoskeletal: Reports: No Symptoms - Patient Data Vitals - Most Recent: Last Vital Signs Temp 98.1 F 07/22/20 03:28 Pulse 76 07/22/20 03:28 Resp 16 07/22/20 03:28 BP 154/77 H 07/22/20 03:28 Pulse Ox 92 L 07/22/20 03:28 Weight - Most Recent: 200 lb 6.4 oz I&O - Last 24 Hours: Intake & Output 07/21/20 07/22/20 07/22/20 22:59 06:59 14:59 Intake Total 1320 150 Output Total 800 400 Balance 520 -250 Lab Results Last 24 Hours: Laboratory Results - last 24 hr 07/22/20 07/22/20 07/22/20 Range/Units 04:23 04:23 04:23 WBC 11.72 H (4.23-9.07) K/mm3 RBC 4.15 L (4.63-6.08) M/mm3 Hgb 12.8 L (13.7-17.5) gm/dl Hct 39.3 L (40.1-51.0) % MCV 94.7 H (79.0-92.2) fl MCH 30.8 (25.7-32.2) pg MCHC 32.6 (32.2-35.5) g/dl RDW Std Deviation 43.9 (35.1-43.9) fL Plt Count 258 (163-337) K/mm3 MPV 10.4 (9.4-12.3) fl Neut % (Auto) 81.8 H (34.0-67.9) % Lymph % (Auto) 8.5 L (21.8-53.1) % [place] % (Auto) 6.9 (5.3-12.2) % Eos % (Auto) 0 L (0.8-7.0) Baso % (Auto) 0.3 (0.1-1.2) % Neut # (Auto) 9.59 H (1.78-5.38) K/mm3 Lymph # (Auto) 1.00 L (1.32-3.57) K/mm3 [place] # (Auto) 0.81 (0.30-0.82) K/mm3 Eos # (Auto) 0.00 L (0.04-0.54) K/mm3 Baso # (Auto) 0.03 (0.01-0.08) K/mm3 Manual Slide Review Abnormal smear D-Dimer, Quantitative 2.30 H (0.19-0.50) mg/L Sodium 142 (136-145) mEq/L Potassium 3.9 (3.5-5.1) mEq/L Chloride 106 (98-107) mEq/L Carbon Dioxide 26 (21-32) mEq/L Anion Gap 13.9 (5-15) BUN 27 H (7-18) mg/dL Creatinine 1.0 (0.7-1.3) mg/dL Est Cr Clr Drug Dosing 69.96 mL/min Estimated GFR (MDRD) > 60 (>60) mL/min BUN/Creatinine Ratio 27.0 H (14-18) Glucose 114 (83-115) mg/dL Calcium 8.7 (8.5-10.1) mg/dL Phosphorus 4.2 (2.6-4.7) mg/dL Magnesium 1.9 (1.8-2.4) mg/dl Total Bilirubin 0.4 (0.2-1.0) mg/dL AST 97 H (15-37) U/L ALT 221 H (16-63) U/L Alkaline Phosphatase 36 L (46-116) U/L C-Reactive Protein 4.0 H* (<1.0) mg/dL Total Protein 6.3 L (6.4-8.2) g/dl Albumin 2.4 L (3.4-5.0) g/dl Globulin 3.9 gm/dL Albumin/Globulin Ratio 0.6 L (1-2) Vitamin D 25-Hydroxy 62.2 (30.0-100.0) ng/ml Twin Results Last 24 Hours: Microbiology 07/18/20 15:10 Aerobic Blood Culture - Preliminary Blood - Venous - Lab Draw NO GROWTH AFTER 3 DAYS Anaerobic Blood Culture - Preliminary NO GROWTH AFTER 3 DAYS 07/18/20 14:57 Aerobic Blood Culture - Preliminary Blood - Venous NO GROWTH AFTER 3 DAYS Anaerobic Blood Culture - Preliminary NO GROWTH AFTER 3 DAYS Med Orders - Current: Current Medications Acetaminophen (Tylenol) 650 mg PO Q4H PRN PRN Reason: Pain (Mild 1-3)/fever Ascorbic Acid (Vitamin C) 1,000 mg PO BID [facility] Last Admin: 07/21/20 20:34 Dose: 1,000 mg Documented by: Chlorthalidone (Chlorthalidone) 25 mg PO DAILY [facility] Cholecalciferol (Vitamin D3) 25 mcg PO BID [facility] Last Admin: 07/21/20 20:34 Dose: 25 mcg Documented by: Dexamethasone (Dexamethasone) 6 mg PO DAILY [facility] Stop: 07/27/20 09:01 Last Admin: 07/21/20 08:18 Dose: 6 mg Documented by: Enoxaparin Sodium (Lovenox) 40 mg SUBCUT DAILY [facility] Last Admin: 07/21/20 08:18 Dose: 40 mg Documented by: Hydralazine HCl (Apresoline) 10 mg IVPUSH Q4H PRN PRN Reason: Hypertension Remdesivir 100 mg/ Sodium (Chloride) 100 mls @ 100 mls/hr IV Q24H [facility] Stop: 07/22/20 18:14 Last Admin: 07/21/20 16:17 Dose: 100 mls/hr Documented by: Metoprolol Tartrate (Lopressor) 50 mg PO BID [facility] Last Admin: 07/21/20 20:34 Dose: 50 mg Documented by: Multivitamins (Thera) 1 each PO DAILY [facility] Last Admin: 07/21/20 08:19 Dose: 1 each Documented by: Ondansetron HCl (Zofran) 4 mg IV Q4H PRN PRN Reason: Nausea/Vomiting Zinc Sulfate (Zincate) 220 mg PO DAILY [facility] Discontinued Medications Acetaminophen (Tylenol) 975 mg PO ONETIME ONE Stop: 07/18/20 16:19 Last Admin: 07/18/20 16:33 Dose: 975 mg Documented by: Dexamethasone (Decadron) 6 mg IVPUSH ONETIME ONE Stop: 07/18/20 16:11 Last Admin: 07/18/20 16:32 Dose: 6 mg Documented by: Hydralazine HCl (Apresoline) 10 mg IVPUSH ONETIME ONE Stop: 07/21/20 17:21 Last Admin: 07/21/20 17:24 Dose: 10 mg Documented by: Hydralazine HCl (Apresoline) Confirm Administered Dose 20 mg .ROUTE .STK-MED ONE Stop: 07/21/20 17:23 Last Admin: 07/21/20 17:46 Dose: Not Given Documented by: Dextrose/Lactated Ringer's (Dextrose 5%-Lactated Ringers) 1,000 mls @ 150 mls/hr IV ASDIRECTED [facility] Last Admin: 07/18/20 15:02 Dose: 150 mls/hr Documented by: Remdesivir 200 mg/ Sodium (Chloride) 250 mls @ 250 mls/hr IV ONETIME ONE Stop: 07/18/20 17:12 Last Admin: 07/18/20 17:43 Dose: 250 mls/hr Documented by: Ibuprofen (Motrin) 600 mg PO ONETIME ONE Stop: 07/18/20 14:31 Last Admin: 07/18/20 15:03 Dose: 600 mg Documented by: Sodium Phosphate (Neutra-Phos) 250 mg PO BID [facility] Stop: 07/19/20 21:01 Last Admin: 07/19/20 20:28 Dose: 250 mg Documented by: - Exam Quality Assessment: Supplemental Oxygen General: Alert, Oriented HEENT: Pupils Equal Neck: Supple Lungs: Normal Respiratory Effort, Rales Cardiovascular: Regular Rate, Regular Rhythm GI/Abdominal Exam: Normal Bowel Sounds, Soft, Non-Tender, No Distention Extremities: Normal Inspection, Normal Range of Motion, Non-Tender, No Pedal Edema, Normal Capillary Refill Skin: Warm, Dry, Intact Psy/Mental Status: Alert, Normal Affect, Normal Mood Sepsis Event Note - Evaluation Sepsis Screening Result: No Definite Risk - Focused Exam Vital Signs: Vital Signs Temp Pulse Resp BP Pulse Ox Pulse Ox 07/22/20 03:28 98.1 F 76 16 154/77 H 92 L 07/21/20 23:25 98.2 F 76 18 133/52 L 91 L 07/21/20 21:50 91 L 07/21/20 21:33 97.5 F 84 16 172/66 H 90 L - Problem List & Annotations (1) Hypertension SNOMED Code(s): 67159471 Code(s): I10 - ESSENTIAL (PRIMARY) HYPERTENSION Status: Acute Priority: High Current Visit: Yes Qualifiers: Hypertension type: unspecified Qualified Code(s): I10 - Essential (primary) hypertension (2) Pneumonia due to COVID-19 virus SNOMED Code(s): 057367434827956828 Code(s): U07.1 - COVID-19; J12.89 - OTHER VIRAL PNEUMONIA Status: Acute Priority: High Current Visit: Yes (3) COVID-19 determined by clinical diagnostic criteria SNOMED Code(s): 794724818, 978073035 Code(s): U07.1 - COVID-19 Status: Acute Priority: High Current Visit: Yes - Problem List Review Problem List Initiated/Reviewed/Updated: Yes - My Orders Last 24 Hours: My Active Orders 07/21/20 21:19 hydrALAZINE [Apresoline] 10 mg IVPUSH Q4H PRN 07/22/20 09:00 Chlorthalidone 25 mg PO DAILY Zinc Sulfate [Zincate] 220 mg PO DAILY 07/23/20 05:11 C-REACTIVE PROTEIN [CHEM] AM CBC WITH AUTO DIFF [HEME] AM CMP [COMPREHENSIVE METABOLIC PN,CMP] [CHEM] AM DD [D-DIMER QUANTITATIVE] [COAG] AM MAGNESIUM [CHEM] AM PHOSPHORUS [CHEM] AM - Assessment Assessment:: Assessment - Day of admission - 07/18/2020 COVID-19 infection with pneumonia and hypoxemia * Initial symptoms started on July 07 with positive diagnosis on the . * Initial symptoms included fever, chills, nonproductive cough, sore throat, myalgias. * Recurrence of fever over the last couple days as high as 104 in the emergency department today. * Increasing weakness and fatigue likely secondary to poor oral intake and hypoxemia. * Started on dexamethasone and remdesivir in the emergency department while awaiting admission. Hypertension * On metoprolol 50 mg twice daily at home * Blood pressure on admission was 155/64 * No history of heart disease, congestive heart failure, or lung disease. * Stopped smoking in 1999. 07/19/2020 COVID-19 infection with pneumonia and hypoxemia * Ambulating around room * Continues to utilize acapella and IS * On 5L O2 * Dry cough with pleuritic chest pain when coughing * Denies GI symptoms * WBC 6.16 * D-Dimer 1.18 * Creatinine 1.1 with GFR >60 * CRP 25.5 * Remdesivir - day 2/ * Dexamethasone - day 2/5 Hypertension * Continue metoprolol 50 mg twice daily at home * Blood pressure on admission was 155/64; Today 157/67 * No history of heart disease, congestive heart failure, or lung disease. * Stopped smoking in 1999 * Monitor Hyperphosphatemia * Phosphorous 1.5 * Supplemented 07/20/2020 COVID-19 infection with pneumonia and hypoxemia * Ambulating around room * States he feels better and is working with PT/OT * Afebrile, VSS * Continues to utilize acapella and IS * On 4L O2 (improved from 5L) * Dry cough with pleuritic chest pain when coughing * Denies GI symptoms * WBC 6.36-->6.16-->13.28 (Steroid ?) * D-Dimer 1.38-->1.18-->1.20 * Creatinine 1.1 with GFR >60 * CRP 24.2-->25.5-->14.1 * Remdesivir - day 10/19 * Dexamethasone - day 3 Hypertension, stable * Continue metoprolol 50 mg twice daily at home * Blood pressure on admission was 155/64; Today 149/68 * No history of heart disease, congestive heart failure, or lung disease. * Stopped smoking in 1999 * Monitor Hyperphosphatemia, Resolved * Phosphorous 1.5-->3.6 July 21, 2020 COVID-19 infection with pneumonia and hypoxemia Hypoalbuminemia * Ambulating around room * Continues to feel better and is working with PT/OT * Afebrile, VSS * Continues to utilize acapella and IS * On 3L O2 (improved from 5L) * Dry cough with pleuritic chest pain when coughing * Denies GI symptoms * WBC 6.36-->6.16-->13.28 --> 11.1 * D-Dimer 1.38-->1.18-->1.20--> 1.44 * Creatinine 1.0 with GFR >60 * CRP 24.2-->25.5-->14.1--> 6.4 * Albumin 2.4 * Remdesivir - day 4/5 * Dexamethasone - day 11/19 Hypertension, stable * Continue metoprolol 50 mg twice daily at home * Blood pressure on admission was 155/64; Today 149/68 * No history of heart disease, congestive heart failure, or lung disease. * Stopped smoking in 1999 * Monitor Hyperphosphatemia, Resolved July 22, 2020 COVID-19 infection with pneumonia and hypoxemia Hypoalbuminemia * Ambulating around room * Continues to feel better and is working with PT/OT * Afebrile, VSS * Continues to utilize acapella and IS * Deteriorated today and is now on 6 L O2 * Dry cough with pleuritic chest pain when coughing * Denies GI symptoms * WBC 6.36-->6.16-->13.28 --> 11.1-->11.7 * D-Dimer 1.38-->1.18-->1.20--> 1.44-->2.3 * Creatinine 1.0 with GFR >60 * CRP 24.2-->25.5-->14.1--> 6.4-->4.0 * Albumin 2.4. * 25 hydroxy vitamin D 62 * Remdesivir - day 12/19 * Dexamethasone - day 12/19 Hypertension, deteriorated * Continue metoprolol 50 mg twice daily at home * Started on chlorthalidone 25 mg this morning * Blood pressure on admission was 155/64; Today 149/68 * No history of heart disease, congestive heart failure, or lung disease. * Stopped smoking in 1999 * Monitor Elevated liver enzymes * Possibly secondary to remdesivir * AST 97, ALT 221, alkaline phosphatase 36 Hyperphosphatemia, Resolved - Plan Plan:: Plan * Continue current management * Admit to medical floor on telemetry and continuous pulse ox * Last day of remdesivir * Day 5 of 10 of dexamethasone * Oxygenation worsened today and D-dimer did go up. * Increase Lovenox to 40 mg twice daily * If D-dimer continues to climb may consider CTA. * Chest x-ray did show marginally worsened lung perez consistent with COVID-19 pneumonia * Encourage proning * FiO2 to keep SPO2 88% to 94% * Dietary consult, encourage protein intake and good nutrition. * Patient takes vitamin D and zinc at home and will continue the above. * Continue metoprolol 50 mg twice daily * Daily labs as ordered * VTE prophylaxis with Lovenox * CODE STATUS: Full code Length of stay greater than 96 hours secondary to treatment for Covid.
[2020-07-22] MEDS: Enoxaparin 40 MG/0.4 ML Syringe SUBCUT SCH ×2 (09:34→20:57)
[2020-07-22] MEDS: Zinc Sulfate 220 MG Cap PO SCH (09:35)
[2020-07-22] MEDS: Metoprolol Tartrate 50 MG Tab PO SCH ×2 (09:36→21:01)
[2020-07-22] MEDS: Multivitamins,Therapeutic Tab PO SCH (09:36)
[2020-07-22] MEDS: Ascorbic Acid 500 MG Tab PO SCH ×2 (09:36→20:58)
[2020-07-22] MEDS: Chlorthalidone 25 MG Tab PO SCH (09:36)
[2020-07-22] MEDS: Cholecalciferol (Vitamin D3) 25 MCG Tab PO SCH ×2 (09:36→20:58)
[2020-07-22] MEDS: Dexamethasone 4 MG Tab PO SCH (09:37)
--- NOTE | 2020-07-22 13:00 | CR ---
Chest: Portable view of the chest was obtained. Comparison: Prior chest x-ray of 07/18/20. Findings: Lungs: Mild increasing density within left upper and right upper lungs are seen from prior study. Diffuse increased perihilar markings are noted which are also increased. Heart and mediastinum: Heart size and mediastinum are normal. Osseous structures: No acute osseous finding is seen. Impression: 1. Increasing density within both sides of the chest as noted above most likely representing increasing COVID change. Diagnostic code #3
[2020-07-22] MEDS: REMDESIVIR 100 MG in Sodium Chloride 0.9% 100 ML IV SCH (17:03)
[2020-07-22] MEDS: Losartan 25 MG Tab PO SCH (21:54)
[2020-07-23] MEDS: Zinc Sulfate 220 MG Cap PO SCH (08:22)
[2020-07-23] MEDS: Multivitamins,Therapeutic Tab PO SCH (08:23)
[2020-07-23] MEDS: Dexamethasone 4 MG Tab PO SCH (08:23)
[2020-07-23] MEDS: Metoprolol Tartrate 50 MG Tab PO SCH ×2 (08:23→20:35)
[2020-07-23] MEDS: Cholecalciferol (Vitamin D3) 25 MCG Tab PO SCH ×2 (08:23→20:34)
[2020-07-23] MEDS: Enoxaparin 40 MG/0.4 ML Syringe SUBCUT SCH ×2 (08:24→20:33)
[2020-07-23] MEDS: Chlorthalidone 25 MG Tab PO SCH (08:24)
[2020-07-23] MEDS: Ascorbic Acid 500 MG Tab PO SCH ×2 (08:24→20:34)
--- NOTE | 2020-07-23 08:37 | PCM.PN ---
- General Info Date of Service: 07/23/20 Admission Dx/Problem (Free Text): Admission Diagnosis/Problem Admission Diagnosis/Problem Hypoxia Subjective Update: In to see Jorge. He reports he feels about the same as before. He remains on 6L of of oxygen. CRP and WBC are stable. D-Dimer has increased to 3.44. Functional Status: Reports: Pain Controlled, Tolerating Diet, Ambulating, Urinating, Incentive Spirometry, Other (acapella ). Denies: New Symptoms - Review of Systems General: Reports: No Symptoms, Weakness, Fatigue, Malaise. Denies: Fever, Chills HEENT: Denies: Headaches, Sore Throat Pulmonary: Reports: Shortness of Breath, Cough, Sputum. Denies: Pleuritic Chest Pain Cardiovascular: Reports: No Symptoms, Dyspnea on Exertion. Denies: Chest Pain, Palpitations Gastrointestinal: Reports: No Symptoms. Denies: Abdominal Pain, Constipation, Diarrhea, Nausea, Vomiting Genitourinary: Reports: Frequency. Denies: Pain Musculoskeletal: Reports: No Symptoms Skin: Reports: No Symptoms. Denies: Cyanosis Neurological: Reports: No Symptoms. Denies: Confusion, Numbness, Pre-Existing Deficit, Tingling, Difficulty Walking, Gait Disturbance Psychiatric: Reports: No Symptoms - Patient Data Vitals - Most Recent: Last Vital Signs Temp 98.1 F 07/23/20 08:02 Pulse 84 07/23/20 08:23 Resp 18 07/23/20 08:02 BP 134/67 07/23/20 08:23 Pulse Ox 89 L 07/23/20 08:02 Weight - Most Recent: 197 lb 3.2 oz I&O - Last 24 Hours: Intake & Output 07/22/20 07/23/20 07/23/20 22:59 06:59 14:59 Intake Total 1540 200 Output Total 600 1550 Balance 940 -1350 Lab Results Last 24 Hours: Laboratory Results - last 24 hr 07/23/20 07/23/20 07/23/20 Range/Units 05:48 05:48 05:48 WBC 10.15 H (4.23-9.07) K/mm3 RBC 4.42 L (4.63-6.08) M/mm3 Hgb 13.8 (13.7-17.5) gm/dl Hct 41.3 (40.1-51.0) % MCV 93.4 H (79.0-92.2) fl MCH 31.2 (25.7-32.2) pg MCHC 33.4 (32.2-35.5) g/dl RDW Std Deviation 43.5 (35.1-43.9) fL Plt Count 307 (163-337) K/mm3 MPV 10.0 (9.4-12.3) fl Neut % (Auto) 73.8 H (34.0-67.9) % Lymph % (Auto) 11.1 L (21.8-53.1) % [place] % (Auto) 8.6 (5.3-12.2) % Eos % (Auto) 0 L (0.8-7.0) Baso % (Auto) 0.4 (0.1-1.2) % Neut # (Auto) 7.49 H (1.78-5.38) K/mm3 Lymph # (Auto) 1.13 L (1.32-3.57) K/mm3 [place] # (Auto) 0.87 H (0.30-0.82) K/mm3 Eos # (Auto) 0.00 L (0.04-0.54) K/mm3 Baso # (Auto) 0.04 (0.01-0.08) K/mm3 Manual Slide Review Abnormal smear D-Dimer, Quantitative 3.44 H (0.19-0.50) mg/L Sodium 137 (136-145) mEq/L Potassium 4.1 (3.5-5.1) mEq/L Chloride 102 (98-107) mEq/L Carbon Dioxide 28 (21-32) mEq/L Anion Gap 11.1 (5-15) BUN 26 H (7-18) mg/dL Creatinine 0.9 (0.7-1.3) mg/dL Est Cr Clr Drug Dosing 77.73 mL/min Estimated GFR (MDRD) > 60 (>60) mL/min BUN/Creatinine Ratio 28.9 H (14-18) Glucose 112 (83-115) mg/dL Calcium 9.1 (8.5-10.1) mg/dL Phosphorus 5.0 H (2.6-4.7) mg/dL Magnesium 1.9 (1.8-2.4) mg/dl Total Bilirubin 0.5 (0.2-1.0) mg/dL AST 41 H (15-37) U/L ALT 161 H (16-63) U/L Alkaline Phosphatase 41 L (46-116) U/L C-Reactive Protein 4.5 H* (<1.0) mg/dL Total Protein 6.7 (6.4-8.2) g/dl Albumin 2.5 L (3.4-5.0) g/dl Globulin 4.2 gm/dL Albumin/Globulin Ratio 0.6 L (1-2) Twin Results Last 24 Hours: Microbiology 07/18/20 15:10 Aerobic Blood Culture - Preliminary Blood - Venous - Lab Draw NO GROWTH AFTER 4 DAYS Anaerobic Blood Culture - Preliminary NO GROWTH AFTER 4 DAYS 07/18/20 14:57 Aerobic Blood Culture - Preliminary Blood - Venous NO GROWTH AFTER 4 DAYS Anaerobic Blood Culture - Preliminary NO GROWTH AFTER 4 DAYS Med Orders - Current: Current Medications Acetaminophen (Tylenol) 650 mg PO Q4H PRN PRN Reason: Pain (Mild 1-3)/fever Ascorbic Acid (Vitamin C) 1,000 mg PO BID [facility] Last Admin: 07/23/20 08:24 Dose: 1,000 mg Documented by: Chlorthalidone (Chlorthalidone) 25 mg PO DAILY [facility] Last Admin: 07/23/20 08:24 Dose: 25 mg Documented by: Cholecalciferol (Vitamin D3) 25 mcg PO BID [facility] Last Admin: 07/23/20 08:23 Dose: 25 mcg Documented by: Dexamethasone (Dexamethasone) 6 mg PO DAILY [facility] Stop: 07/27/20 09:01 Last Admin: 07/23/20 08:23 Dose: 6 mg Documented by: Enoxaparin Sodium (Lovenox) 40 mg SUBCUT Q12H [facility] Last Admin: 07/23/20 08:24 Dose: 40 mg Documented by: Hydralazine HCl (Apresoline) 10 mg IVPUSH Q4H PRN PRN Reason: Hypertension Last Admin: 07/22/20 21:19 Dose: 10 mg Documented by: Losartan Potassium (Cozaar) 50 mg PO BEDTIME [facility] Last Admin: 07/22/20 21:54 Dose: 50 mg Documented by: Metoprolol Tartrate (Lopressor) 50 mg PO BID [facility] Last Admin: 07/23/20 08:23 Dose: 50 mg Documented by: Multivitamins (Thera) 1 each PO DAILY [facility] Last Admin: 07/23/20 08:23 Dose: 1 each Documented by: Ondansetron HCl (Zofran) 4 mg IV Q4H PRN PRN Reason: Nausea/Vomiting Zinc Sulfate (Zincate) 220 mg PO DAILY [facility] Last Admin: 07/23/20 08:22 Dose: 220 mg Documented by: Discontinued Medications Acetaminophen (Tylenol) 975 mg PO ONETIME ONE Stop: 07/18/20 16:19 Last Admin: 07/18/20 16:33 Dose: 975 mg Documented by: Dexamethasone (Decadron) 6 mg IVPUSH ONETIME ONE Stop: 07/18/20 16:11 Last Admin: 07/18/20 16:32 Dose: 6 mg Documented by: Enoxaparin Sodium (Lovenox) 40 mg SUBCUT DAILY [facility] Last Admin: 07/22/20 09:34 Dose: 40 mg Documented by: Hydralazine HCl (Apresoline) 10 mg IVPUSH ONETIME ONE Stop: 07/21/20 17:21 Last Admin: 07/21/20 17:24 Dose: 10 mg Documented by: Hydralazine HCl (Apresoline) Confirm Administered Dose 20 mg .ROUTE .STK-MED ONE Stop: 07/21/20 17:23 Last Admin: 07/21/20 17:46 Dose: Not Given Documented by: Dextrose/Lactated Ringer's (Dextrose 5%-Lactated Ringers) 1,000 mls @ 150 mls/hr IV ASDIRECTED [facility] Last Admin: 07/18/20 15:02 Dose: 150 mls/hr Documented by: Remdesivir 200 mg/ Sodium (Chloride) 250 mls @ 250 mls/hr IV ONETIME ONE Stop: 07/18/20 17:12 Last Admin: 07/18/20 17:43 Dose: 250 mls/hr Documented by: Remdesivir 100 mg/ Sodium (Chloride) 100 mls @ 100 mls/hr IV Q24H [facility] Stop: 07/22/20 18:14 Last Admin: 07/22/20 17:03 Dose: 100 mls/hr Documented by: Ibuprofen (Motrin) 600 mg PO ONETIME ONE Stop: 07/18/20 14:31 Last Admin: 07/18/20 15:03 Dose: 600 mg Documented by: Sodium Phosphate (Neutra-Phos) 250 mg PO BID [facility] Stop: 07/19/20 21:01 Last Admin: 07/19/20 20:28 Dose: 250 mg Documented by: - Exam Quality Assessment: Supplemental Oxygen (6L), DVT Prophylaxis General: Alert, Oriented, Cooperative, No Acute Distress HEENT: Pupils Equal, Pupils Reactive, Mucous Membr. Moist/[place], Scleral Icterus Neck: Supple, Trachea Midline Lungs: Normal Respiratory Effort, Decreased Breath Sounds Cardiovascular: Regular Rate, Regular Rhythm GI/Abdominal Exam: Normal Bowel Sounds, Soft, Non-Tender, No Distention (Male) Exam: Deferred Back Exam: Normal Inspection, Full Range of Motion Extremities: Normal Inspection, Normal Range of Motion, Non-Tender, No Pedal Edema, Normal Capillary Refill Skin: Warm, Dry, Intact Neurological: No New Focal Deficit Psy/Mental Status: Alert, Normal Affect, Normal Mood Sepsis Event Note - Evaluation Sepsis Screening Result: No Definite Risk - Focused Exam Vital Signs: Vital Signs Temp Pulse Resp BP Pulse Ox 07/23/20 08:23 84 134/67 07/23/20 08:21 134/67 07/23/20 08:02 98.1 F 84 18 171/77 H 89 L 07/23/20 04:07 97.9 F 80 20 148/73 H 07/23/20 04:00 92 L 07/22/20 23:06 97.9 F 77 22 H 166/61 H 92 L 07/22/20 21:54 172/68 H 07/22/20 21:29 172/68 H 07/22/20 21:18 194/75 H 07/22/20 21:01 87 187/70 H 07/22/20 21:00 186/70 H 07/22/20 20:54 87 95 07/22/20 20:52 98.6 F 76 20 93 L - Problem List & Annotations (1) COVID-19 determined by clinical diagnostic criteria SNOMED Code(s): 252665738, 155402478 Code(s): U07.1 - COVID-19 Status: Acute Priority: High Current Visit: Yes (2) Hypertension SNOMED Code(s): 23829852 Code(s): I10 - ESSENTIAL (PRIMARY) HYPERTENSION Status: Acute Priority: High Current Visit: Yes Qualifiers: Hypertension type: unspecified Qualified Code(s): I10 - Essential (primary) hypertension (3) Pneumonia due to COVID-19 virus SNOMED Code(s): 456676352768260704 Code(s): U07.1 - COVID-19; J12.89 - OTHER VIRAL PNEUMONIA Status: Acute Priority: High Current Visit: Yes (4) Hypoxia SNOMED Code(s): 808867433 Code(s): R09.02 - HYPOXEMIA Status: Acute Priority: High Current Visit: Yes (5) Hypophosphatemia SNOMED Code(s): 5042010 Code(s): E83.39 - OTHER DISORDERS OF PHOSPHORUS METABOLISM Status: Acute Priority: High Current Visit: Yes - Problem List Review Problem List Initiated/Reviewed/Updated: Yes - Assessment Assessment:: Assessment - Day of admission - 07/18/2020 COVID-19 infection with pneumonia and hypoxemia * Initial symptoms started on July 07 with positive diagnosis on the . * Initial symptoms included fever, chills, nonproductive cough, sore throat, myalgias. * Recurrence of fever over the last couple days as high as 104 in the emergency department today. * Increasing weakness and fatigue likely secondary to poor oral intake and hypoxemia. * Started on dexamethasone and remdesivir in the emergency department while awaiting admission. Hypertension * On metoprolol 50 mg twice daily at home * Blood pressure on admission was 155/64 * No history of heart disease, congestive heart failure, or lung disease. * Stopped smoking in 1999. 07/19/2020 COVID-19 infection with pneumonia and hypoxemia * Ambulating around room * Continues to utilize acapella and IS * On 5L O2 * Dry cough with pleuritic chest pain when coughing * Denies GI symptoms * WBC 6.16 * D-Dimer 1.18 * Creatinine 1.1 with GFR >60 * CRP 25.5 * Remdesivir - day 2 * Dexamethasone - day 2 Hypertension * Continue metoprolol 50 mg twice daily at home * Blood pressure on admission was 155/64; Today 157/67 * No history of heart disease, congestive heart failure, or lung disease. * Stopped smoking in 1999 * Monitor Hypophosphatemia * Phosphorous 1.5 * Supplemented 07/20/2020 COVID-19 infection with pneumonia and hypoxemia * Ambulating around room * States he feels better and is working with PT/OT * Afebrile, VSS * Continues to utilize acapella and IS * On 4L O2 (improved from 5L) * Dry cough with pleuritic chest pain when coughing * Denies GI symptoms * WBC 6.36-->6.16-->13.28 (Steroid ?) * D-Dimer 1.38-->1.18-->1.20 * Creatinine 1.1 with GFR >60 * CRP 24.2-->25.5-->14.1 * Remdesivir - day 3/ * Dexamethasone - day 10/19 Hypertension, stable * Continue metoprolol 50 mg twice daily at home * Blood pressure on admission was 155/64; Today 149/68 * No history of heart disease, congestive heart failure, or lung disease. * Stopped smoking in 1999 * Monitor Hypophosphatemia, Resolved * Phosphorous 1.5-->3.6 July 21, 2020 COVID-19 infection with pneumonia and hypoxemia Hypoalbuminemia * Ambulating around room * Continues to feel better and is working with PT/OT * Afebrile, VSS * Continues to utilize acapella and IS * On 3L O2 (improved from 5L) * Dry cough with pleuritic chest pain when coughing * Denies GI symptoms * WBC 6.36-->6.16-->13.28 --> 11.1 * D-Dimer 1.38-->1.18-->1.20--> 1.44 * Creatinine 1.0 with GFR >60 * CRP 24.2-->25.5-->14.1--> 6.4 * Albumin 2.4 * Remdesivir - day 11/19 * Dexamethasone - day 11/19 Hypertension, stable * Continue metoprolol 50 mg twice daily at home * Blood pressure on admission was 155/64; Today 149/68 * No history of heart disease, congestive heart failure, or lung disease. * Stopped smoking in 1999 * Monitor Hypophosphatemia, Resolved July 22, 2020 COVID-19 infection with pneumonia and hypoxemia Hypoalbuminemia * Ambulating around room * Continues to feel better and is working with PT/OT * Afebrile, VSS * Continues to utilize acapella and IS * Deteriorated today and is now on 6 L O2 * Dry cough with pleuritic chest pain when coughing * Denies GI symptoms * WBC 6.36-->6.16-->13.28 --> 11.1-->11.7 * D-Dimer 1.38-->1.18-->1.20--> 1.44-->2.3 * Creatinine 1.0 with GFR >60 * CRP 24.2-->25.5-->14.1--> 6.4-->4.0 * Albumin 2.4. * 25 hydroxy vitamin D 62 * Remdesivir - day 12/19 * Dexamethasone - day 12/19 Hypertension, deteriorated * Continue metoprolol 50 mg twice daily at home * Started on chlorthalidone 25 mg this morning * Blood pressure on admission was 155/64; Today 149/68 * No history of heart disease, congestive heart failure, or lung disease. * Stopped smoking in 1999 * Monitor Elevated liver enzymes * Possibly secondary to remdesivir * AST 97, ALT 221, alkaline phosphatase 36 * Hypophosphatemia, Resolved July 23, 2020 COVID-19 infection with pneumonia and hypoxemia Hypoalbuminemia * Continues to ambulate around room and utilize IS/Acapella * Remains stable on 6L O2 * Denies GI symptoms * WBC 6.36-->6.16-->13.28 --> 11.1-->11.7-->10.15 * D-Dimer 1.38-->1.18-->1.20--> 1.44-->2.3-->3.44 * Creatinine 1.0 with GFR >60-->0.9/>60 * CRP 24.2-->25.5-->14.1--> 6.4-->4.0-->4.5 * Albumin 2.4-->2.5 * 25 hydroxy vitamin D 62 * Completed Remdesivir - day 12/19 * Dexamethasone - day 01/23 Hypertension, deteriorated * Continue metoprolol 50 mg twice daily at home * Started on chlorthalidone 25 mg * Blood pressure on admission was 155/64; Today 120/52 * No history of heart disease, congestive heart failure, or lung disease. * Stopped smoking in 1999 * Monitor Elevated liver enzymes, improved * Possibly secondary to remdesivir * AST 97, ALT 221, alkaline phosphatase 36--> AST 41, ALT 161, Alk Phos 41 Hypophosphatemia, Resolved - Plan Plan:: Plan * Continue current management * Admit to medical floor on telemetry and continuous pulse ox * Completed remdesivir * Day 6 of 10 of dexamethasone * Increased Lovenox to 40 mg twice daily * If D-dimer continues to climb may consider CTA. * Chest x-ray did show marginally worsened lung perez consistent with COVID-19 pneumonia * Encourage proning * FiO2 to keep SPO2 88% to 94% * Dietary consult, encourage protein intake and good nutrition. * Patient takes vitamin D and zinc at home and will continue the above. * Continue metoprolol 50 mg twice daily * Consider High Flow O2 if oxygen saturations continue to deteriorate * Daily labs as ordered * VTE prophylaxis with Lovenox * CODE STATUS: Full code Length of stay greater than 96 hours secondary to treatment for Covid.
[2020-07-23] MEDS: Losartan 25 MG Tab PO SCH (20:34)
--- NOTE | 2020-07-24 07:30 | PCM.PN ---
- General Info Date of Service: 07/24/20 Admission Dx/Problem (Free Text): Admission Diagnosis/Problem Admission Diagnosis/Problem Hypoxia Subjective Update: In to see Jorge. He is on high flow now and tolerating that well. He reports he feels better than the day prior. CRP, WBC, and D-dimer have improved. Sodium has decreased and we will monitor this. He continues to receive his dexamethasone. He has been utilizing his IS and acapella in the room. He has been ambulating around the room as best he can while on high flow. He reports he has been proning throughout the night and when he is resting. No current complaints or concerns from patient or nursing. Functional Status: Reports: Pain Controlled, Tolerating Diet, Ambulating, Urinating, Incentive Spirometry, Other (Acapella ). Denies: New Symptoms - Review of Systems General: Reports: Weakness, Fatigue, Malaise. Denies: Fever, Chills HEENT: Reports: No Symptoms. Denies: Headaches, Sore Throat Pulmonary: Reports: Shortness of Breath, Cough, Sputum. Denies: Pleuritic Chest Pain, Wheezing Cardiovascular: Reports: Dyspnea on Exertion. Denies: Chest Pain, Palpitations, Edema Gastrointestinal: Reports: No Symptoms. Denies: Abdominal Pain, Constipation, Diarrhea, Nausea, Vomiting Genitourinary: Reports: No Symptoms. Denies: Pain Musculoskeletal: Reports: No Symptoms Skin: Reports: No Symptoms. Denies: Cyanosis Neurological: Reports: Weakness. Denies: Confusion, Numbness, Tingling, Difficulty Walking, Gait Disturbance Psychiatric: Reports: No Symptoms - Patient Data Vitals - Most Recent: Last Vital Signs Temp 97.9 F 07/24/20 05:23 Pulse 74 07/24/20 05:23 Resp 18 07/24/20 05:23 BP 123/61 07/24/20 05:23 Pulse Ox 93 L 07/24/20 06:12 Weight - Most Recent: 193 lb 14.4 oz I&O - Last 24 Hours: Intake & Output 07/23/20 07/24/20 07/24/20 22:59 06:59 14:59 Intake Total 1280 400 Output Total 400 2150 Balance 880 -1750 Lab Results Last 24 Hours: Laboratory Results - last 24 hr 12/07/20 12/08/20 12/08/20 Range/Units 05:48 04:45 04:45 WBC 9.77 H (4.23-9.07) K/mm3 RBC 4.70 (4.63-6.08) M/mm3 Hgb 14.6 (13.7-17.5) gm/dl Hct 43.9 (40.1-51.0) % MCV 93.4 H (79.0-92.2) fl MCH 31.1 (25.7-32.2) pg MCHC 33.3 (32.2-35.5) g/dl RDW Std Deviation 44.1 H (35.1-43.9) fL Plt Count 325 (163-337) K/mm3 MPV 10.0 (9.4-12.3) fl Neut % (Auto) 69.8 H (34.0-67.9) % Lymph % (Auto) 13.5 L (21.8-53.1) % [place] % (Auto) 8.6 (5.3-12.2) % Eos % (Auto) 0.1 L (0.8-7.0) Baso % (Auto) 0.4 (0.1-1.2) % Neut # (Auto) 6.82 H (1.78-5.38) K/mm3 Lymph # (Auto) 1.32 (1.32-3.57) K/mm3 [place] # (Auto) 0.84 H (0.30-0.82) K/mm3 Eos # (Auto) 0.01 L (0.04-0.54) K/mm3 Baso # (Auto) 0.04 (0.01-0.08) K/mm3 Manual Slide Review Abnormal smear Abnormal smear D-Dimer, Quantitative 2.30 H (0.19-0.50) mg/L Sodium (136-145) mEq/L Potassium (3.5-5.1) mEq/L Chloride (98-107) mEq/L Carbon Dioxide (21-32) mEq/L Anion Gap (5-15) BUN (7-18) mg/dL Creatinine (0.7-1.3) mg/dL Est Cr Clr Drug Dosing mL/min Estimated GFR (MDRD) (>60) mL/min BUN/Creatinine Ratio (14-18) Glucose (83-115) mg/dL Calcium (8.5-10.1) mg/dL Magnesium (1.8-2.4) mg/dl Total Bilirubin (0.2-1.0) mg/dL AST (15-37) U/L ALT (16-63) U/L Alkaline Phosphatase (46-116) U/L C-Reactive Protein (<1.0) mg/dL Total Protein (6.4-8.2) g/dl Albumin (3.4-5.0) g/dl Globulin gm/dL Albumin/Globulin Ratio (1-2) 07/24/20 Range/Units 04:45 WBC (4.23-9.07) K/mm3 RBC (4.63-6.08) M/mm3 Hgb (13.7-17.5) gm/dl Hct (40.1-51.0) % MCV (79.0-92.2) fl MCH (25.7-32.2) pg MCHC (32.2-35.5) g/dl RDW Std Deviation (35.1-43.9) fL Plt Count (163-337) K/mm3 MPV (9.4-12.3) fl Neut % (Auto) (34.0-67.9) % Lymph % (Auto) (21.8-53.1) % [place] % (Auto) (5.3-12.2) % Eos % (Auto) (0.8-7.0) Baso % (Auto) (0.1-1.2) % Neut # (Auto) (1.78-5.38) K/mm3 Lymph # (Auto) (1.32-3.57) K/mm3 [place] # (Auto) (0.30-0.82) K/mm3 Eos # (Auto) (0.04-0.54) K/mm3 Baso # (Auto) (0.01-0.08) K/mm3 Manual Slide Review D-Dimer, Quantitative (0.19-0.50) mg/L Sodium 133 L (136-145) mEq/L Potassium 4.1 (3.5-5.1) mEq/L Chloride 97 L (98-107) mEq/L Carbon Dioxide 26 (21-32) mEq/L Anion Gap 14.1 (5-15) BUN 29 H (7-18) mg/dL Creatinine 1.0 (0.7-1.3) mg/dL Est Cr Clr Drug Dosing 69.96 mL/min Estimated GFR (MDRD) > 60 (>60) mL/min BUN/Creatinine Ratio 29.0 H (14-18) Glucose 115 (83-115) mg/dL Calcium 9.2 (8.5-10.1) mg/dL Magnesium 2.0 (1.8-2.4) mg/dl Total Bilirubin 0.5 (0.2-1.0) mg/dL AST 31 (15-37) U/L ALT 133 H (16-63) U/L Alkaline Phosphatase 41 L (46-116) U/L C-Reactive Protein 3.8 H* (<1.0) mg/dL Total Protein 7.3 (6.4-8.2) g/dl Albumin 2.7 L (3.4-5.0) g/dl Globulin 4.6 gm/dL Albumin/Globulin Ratio 0.6 L (1-2) Twin Results Last 24 Hours: Microbiology 07/18/20 15:10 Aerobic Blood Culture - Preliminary Blood - Venous - Lab Draw NO GROWTH AFTER 5 DAYS Anaerobic Blood Culture - Preliminary NO GROWTH AFTER 5 DAYS 07/18/20 14:57 Aerobic Blood Culture - Preliminary Blood - Venous NO GROWTH AFTER 5 DAYS Anaerobic Blood Culture - Preliminary NO GROWTH AFTER 5 DAYS Med Orders - Current: Current Medications Acetaminophen (Tylenol) 650 mg PO Q4H PRN PRN Reason: Pain (Mild 1-3)/fever Ascorbic Acid (Vitamin C) 1,000 mg PO BID [facility] Last Admin: 07/23/20 20:34 Dose: 1,000 mg Documented by: Chlorthalidone (Chlorthalidone) 25 mg PO DAILY [facility] Last Admin: 07/23/20 08:24 Dose: 25 mg Documented by: Cholecalciferol (Vitamin D3) 25 mcg PO BID [facility] Last Admin: 07/23/20 20:34 Dose: 25 mcg Documented by: Dexamethasone (Dexamethasone) 6 mg PO DAILY [facility] Stop: 07/27/20 09:01 Last Admin: 07/23/20 08:23 Dose: 6 mg Documented by: Enoxaparin Sodium (Lovenox) 40 mg SUBCUT Q12H [facility] Last Admin: 07/23/20 20:33 Dose: 40 mg Documented by: Hydralazine HCl (Apresoline) 10 mg IVPUSH Q4H PRN PRN Reason: Hypertension Last Admin: 07/22/20 21:19 Dose: 10 mg Documented by: Losartan Potassium (Cozaar) 50 mg PO BEDTIME [facility] Last Admin: 07/23/20 20:34 Dose: 50 mg Documented by: Metoprolol Tartrate (Lopressor) 50 mg PO BID [facility] Last Admin: 07/23/20 20:35 Dose: 50 mg Documented by: Multivitamins (Thera) 1 each PO DAILY [facility] Last Admin: 07/23/20 08:23 Dose: 1 each Documented by: Ondansetron HCl (Zofran) 4 mg IV Q4H PRN PRN Reason: Nausea/Vomiting Zinc Sulfate (Zincate) 220 mg PO DAILY [facility] Last Admin: 07/23/20 08:22 Dose: 220 mg Documented by: Discontinued Medications Acetaminophen (Tylenol) 975 mg PO ONETIME ONE Stop: 07/18/20 16:19 Last Admin: 07/18/20 16:33 Dose: 975 mg Documented by: Dexamethasone (Decadron) 6 mg IVPUSH ONETIME ONE Stop: 07/18/20 16:11 Last Admin: 07/18/20 16:32 Dose: 6 mg Documented by: Enoxaparin Sodium (Lovenox) 40 mg SUBCUT DAILY [facility] Last Admin: 07/22/20 09:34 Dose: 40 mg Documented by: Hydralazine HCl (Apresoline) 10 mg IVPUSH ONETIME ONE Stop: 07/21/20 17:21 Last Admin: 07/21/20 17:24 Dose: 10 mg Documented by: Hydralazine HCl (Apresoline) Confirm Administered Dose 20 mg .ROUTE .STK-MED ONE Stop: 07/21/20 17:23 Last Admin: 07/21/20 17:46 Dose: Not Given Documented by: Dextrose/Lactated Ringer's (Dextrose 5%-Lactated Ringers) 1,000 mls @ 150 mls/hr IV ASDIRECTED [facility] Last Admin: 07/18/20 15:02 Dose: 150 mls/hr Documented by: Remdesivir 200 mg/ Sodium (Chloride) 250 mls @ 250 mls/hr IV ONETIME ONE Stop: 07/18/20 17:12 Last Admin: 12/02/20 17:43 Dose: 250 mls/hr Documented by: Remdesivir 100 mg/ Sodium (Chloride) 100 mls @ 100 mls/hr IV Q24H [facility] Stop: 07/22/20 18:14 Last Admin: 07/22/20 17:03 Dose: 100 mls/hr Documented by: Ibuprofen (Motrin) 600 mg PO ONETIME ONE Stop: 07/18/20 14:31 Last Admin: 07/18/20 15:03 Dose: 600 mg Documented by: Sodium Phosphate (Neutra-Phos) 250 mg PO BID [facility] Stop: 07/19/20 21:01 Last Admin: 07/19/20 20:28 Dose: 250 mg Documented by: - Exam Quality Assessment: Supplemental Oxygen, DVT Prophylaxis. No: Urine Catheter General: Alert, Oriented, Cooperative, No Acute Distress HEENT: Pupils Equal, Pupils Reactive, Mucous Membr. Moist/[place] Lungs: Normal Respiratory Effort, Decreased Breath Sounds (improved ). No: Rhonchi, Wheezing Cardiovascular: Regular Rate, Regular Rhythm GI/Abdominal Exam: Normal Bowel Sounds, Soft, Non-Tender, No Distention (Male) Exam: Deferred Back Exam: Normal Inspection, Full Range of Motion Extremities: Normal Inspection, Normal Range of Motion, Non-Tender, No Pedal Edema, Normal Capillary Refill Skin: Warm, Dry, Intact Neurological: No New Focal Deficit Psy/Mental Status: Alert, Normal Affect, Normal Mood Sepsis Event Note - Evaluation Sepsis Screening Result: No Definite Risk - Focused Exam Vital Signs: Vital Signs Temp Temp Pulse Pulse Resp BP BP 07/24/20 06:12 07/24/20 05:23 97.9 F 97.9 F 74 74 18 123/61 123/61 07/24/20 00:35 97.5 F 75 16 134/71 07/23/20 21:32 07/23/20 21:03 97.2 F 83 20 07/23/20 21:00 07/23/20 20:35 81 165/73 H 07/23/20 20:34 165/73 H 07/23/20 20:33 81 07/23/20 20:21 97.9 F 83 20 165/73 H Pulse Ox Pulse Ox 07/24/20 06:12 93 L 07/24/20 05:23 89 L 07/24/20 00:35 94 L 07/23/20 21:32 92 L 07/23/20 21:03 91 L 07/23/20 21:00 93 L 07/23/20 20:35 07/23/20 20:34 07/23/20 20:33 93 L 07/23/20 20:21 89 L - Problem List & Annotations (1) COVID-19 determined by clinical diagnostic criteria SNOMED Code(s): 128018954, 177073208 Code(s): U07.1 - COVID-19 Status: Acute Priority: High Current Visit: Yes (2) Hypertension SNOMED Code(s): 38645211 Code(s): I10 - ESSENTIAL (PRIMARY) HYPERTENSION Status: Acute Priority: High Current Visit: Yes Qualifiers: Hypertension type: unspecified Qualified Code(s): I10 - Essential (primary) hypertension (3) Pneumonia due to COVID-19 virus SNOMED Code(s): 102835186916075036 Code(s): U07.1 - COVID-19; J12.89 - OTHER VIRAL PNEUMONIA Status: Acute Priority: High Current Visit: Yes (4) Hypoxia SNOMED Code(s): 164819167 Code(s): R09.02 - HYPOXEMIA Status: Acute Priority: High Current Visit: Yes (5) Hypophosphatemia SNOMED Code(s): 7052118 Code(s): E83.39 - OTHER DISORDERS OF PHOSPHORUS METABOLISM Status: Acute Priority: High Current Visit: Yes - Problem List Review Problem List Initiated/Reviewed/Updated: Yes - My Orders Last 24 Hours: My Active Orders 07/25/20 05:11 CBC WITH AUTO DIFF [HEME] AM CMP [COMPREHENSIVE METABOLIC PN,CMP] [CHEM] AM CRP [C-REACTIVE PROTEIN] [CHEM] AM DD [D-DIMER QUANTITATIVE] [COAG] AM MAGNESIUM [CHEM] AM 07/26/20 05:11 CBC WITH AUTO DIFF [HEME] AM CMP [COMPREHENSIVE METABOLIC PN,CMP] [CHEM] AM CRP [C-REACTIVE PROTEIN] [CHEM] AM DD [D-DIMER QUANTITATIVE] [COAG] AM MAGNESIUM [CHEM] AM 07/27/20 05:11 CBC WITH AUTO DIFF [HEME] AM CMP [COMPREHENSIVE METABOLIC PN,CMP] [CHEM] AM CRP [C-REACTIVE PROTEIN] [CHEM] AM DD [D-DIMER QUANTITATIVE] [COAG] AM MAGNESIUM [CHEM] AM - Assessment Assessment:: Assessment - Day of admission - 07/18/2020 COVID-19 infection with pneumonia and hypoxemia * Initial symptoms started on July 07 with positive diagnosis on the . * Initial symptoms included fever, chills, nonproductive cough, sore throat, my algias. * Recurrence of fever over the last couple days as high as 104 in the emergency department today. * Increasing weakness and fatigue likely secondary to poor oral intake and hypoxemia. * Started on dexamethasone and remdesivir in the emergency department while awaiting admission. Hypertension * On metoprolol 50 mg twice daily at home * Blood pressure on admission was 155/64 * No history of heart disease, congestive heart failure, or lung disease. * Stopped smoking in 1999. 07/19/2020 COVID-19 infection with pneumonia and hypoxemia * Ambulating around room * Continues to utilize acapella and IS * On 5L O2 * Dry cough with pleuritic chest pain when coughing * Denies GI symptoms * WBC 6.16 * D-Dimer 1.18 * Creatinine 1.1 with GFR >60 * CRP 25.5 * Remdesivir - day 2 * Dexamethasone - day 2 Hypertension * Continue metoprolol 50 mg twice daily at home * Blood pressure on admission was 155/64; Today 157/67 * No history of heart disease, congestive heart failure, or lung disease. * Stopped smoking in 1999 * Monitor Hypophosphatemia * Phosphorous 1.5 * Supplemented 07/20/2020 COVID-19 infection with pneumonia and hypoxemia * Ambulating around room * States he feels better and is working with PT/OT * Afebrile, VSS * Continues to utilize acapella and IS * On 4L O2 (improved from 5L) * Dry cough with pleuritic chest pain when coughing * Denies GI symptoms * WBC 6.36-->6.16-->13.28 (Steroid ?) * D-Dimer 1.38-->1.18-->1.20 * Creatinine 1.1 with GFR >60 * CRP 24.2-->25.5-->14.1 * Remdesivir - day 3 * Dexamethasone - day 3 Hypertension, stable * Continue metoprolol 50 mg twice daily at home * Blood pressure on admission was 155/64; Today 149/68 * No history of heart disease, congestive heart failure, or lung disease. * Stopped smoking in 1999 * Monitor Hypophosphatemia, Resolved * Phosphorous 1.5-->3.6 July 21, 2020 COVID-19 infection with pneumonia and hypoxemia Hypoalbuminemia * Ambulating around room * Continues to feel better and is working with PT/OT * Afebrile, VSS * Continues to utilize acapella and IS * On 3L O2 (improved from 5L) * Dry cough with pleuritic chest pain when coughing * Denies GI symptoms * WBC 6.36-->6.16-->13.28 --> 11.1 * D-Dimer 1.38-->1.18-->1.20--> 1.44 * Creatinine 1.0 with GFR >60 * CRP 24.2-->25.5-->14.1--> 6.4 * Albumin 2.4 * Remdesivir - day 11/19 * Dexamethasone - day 11/19 Hypertension, stable * Continue metoprolol 50 mg twice daily at home * Blood pressure on admission was 155/64; Today 149/68 * No history of heart disease, congestive heart failure, or lung disease. * Stopped smoking in 1999 * Monitor Hypophosphatemia, Resolved July 22, 2020 COVID-19 infection with pneumonia and hypoxemia Hypoalbuminemia * Ambulating around room * Continues to feel better and is working with PT/OT * Afebrile, VSS * Continues to utilize acapella and IS * Deteriorated today and is now on 6 L O2 * Dry cough with pleuritic chest pain when coughing * Denies GI symptoms * WBC 6.36-->6.16-->13.28 --> 11.1-->11.7 * D-Dimer 1.38-->1.18-->1.20--> 1.44-->2.3 * Creatinine 1.0 with GFR >60 * CRP 24.2-->25.5-->14.1--> 6.4-->4.0 * Albumin 2.4. * 25 hydroxy vitamin D 62 * Remdesivir - day 12/19 * Dexamethasone - day 12/19 Hypertension, deteriorated * Continue metoprolol 50 mg twice daily at home * Started on chlorthalidone 25 mg this morning * Blood pressure on admission was 155/64; Today 149/68 * No history of heart disease, congestive heart failure, or lung disease. * Stopped smoking in 1999 * Monitor Elevated liver enzymes * Possibly secondary to remdesivir * AST 97, ALT 221, alkaline phosphatase 36 * Hypophosphatemia, Resolved July 23, 2020 COVID-19 infection with pneumonia and hypoxemia Hypoalbuminemia * Continues to ambulate around room and utilize IS/Acapella * Remains stable on 6L O2 * Denies GI symptoms * WBC 6.36-->6.16-->13.28 --> 11.1-->11.7-->10.15 * D-Dimer 1.38-->1.18-->1.20--> 1.44-->2.3-->3.44 * Creatinine 1.0 with GFR >60-->0.9/>60 * CRP 24.2-->25.5-->14.1--> 6.4-->4.0-->4.5 * Albumin 2.4-->2.5 * 25 hydroxy vitamin D 62 * Completed Remdesivir - day 12/19 * Dexamethasone - day 01/23 Hypertension, deteriorated * Continue metoprolol 50 mg twice daily at home * Started on chlorthalidone 25 mg * Blood pressure on admission was 155/64; Today 120/52 * No history of heart disease, congestive heart failure, or lung disease. * Stopped smoking in 1999 * Monitor Elevated liver enzymes, improved * Possibly secondary to remdesivir * AST 97, ALT 221, alkaline phosphatase 36--> AST 41, ALT 161, Alk Phos 41 Hypophosphatemia, Resolved COVID-19 infection with pneumonia and hypoxemia Hypoalbuminemia * Continues to ambulate around room and utilize IS/Acapella * Remains stable on 6L O2 * Denies GI symptoms * WBC 6.36-->6.16-->13.28 --> 11.1-->11.7-->10.15-->9.77 * D-Dimer 1.38-->1.18-->1.20--> 1.44-->2.3-->3.44-->2.30 * Creatinine 1.0 with GFR >60-->0.9/>60-->1.0/>60 * CRP 24.2-->25.5-->14.1--> 6.4-->4.0-->4.5-->3.8 * Albumin 2.4-->2.5-->2.7 * 25 hydroxy vitamin D 62 * Completed Remdesivir * Dexamethasone - day 02/22 Hypertension, deteriorated * Continue metoprolol 50 mg twice daily at home * Started on chlorthalidone 25 mg * Blood pressure on admission was 155/64; Today 136/62 * No history of heart disease, congestive heart failure, or lung disease. * Stopped smoking in 1999 * Monitor Elevated liver enzymes, continues to improve * Possibly secondary to remdesivir * AST 97, ALT 221, alkaline phosphatase 36--> AST 41, ALT 161, Alk Phos 41--> AST 31, ALT 133, Alk Phos 41 Hypophosphatemia, Resolved - Plan Plan:: Plan * Continue current management * Admit to medical floor on telemetry and continuous pulse ox * Completed remdesivir * Day 7 of 10 of dexamethasone * Continue Lovenox 40 mg twice daily * Chest x-ray did show marginally worsened lung perez consistent with COVID-19 pneumonia * Encourage proning * FiO2 to keep SPO2 88% to 94% * Dietary consult, encourage protein intake and good nutrition. * Patient takes vitamin D and zinc at home and will continue the above. * Continue metoprolol 50 mg twice daily * Continue High Flow O2 * Daily labs as ordered * VTE prophylaxis with Lovenox * CODE STATUS: Full code Length of stay greater than 96 hours secondary to treatment for Covid.
[2020-07-24] MEDS: Enoxaparin 40 MG/0.4 ML Syringe SUBCUT SCH ×2 (08:26→20:38)
[2020-07-24] MEDS: Dexamethasone 4 MG Tab PO SCH (08:26)
[2020-07-24] MEDS: Multivitamins,Therapeutic Tab PO SCH (08:27)
[2020-07-24] MEDS: Chlorthalidone 25 MG Tab PO SCH (08:27)
[2020-07-24] MEDS: Cholecalciferol (Vitamin D3) 25 MCG Tab PO SCH ×2 (08:27→20:36)
[2020-07-24] MEDS: Ascorbic Acid 500 MG Tab PO SCH ×2 (08:27→20:37)
[2020-07-24] MEDS: Zinc Sulfate 220 MG Cap PO SCH (08:27)
[2020-07-24] MEDS: Metoprolol Tartrate 50 MG Tab PO SCH ×2 (08:28→20:37)
[2020-07-24] MEDS: Losartan 25 MG Tab PO SCH (20:36)
--- NOTE | 2020-07-25 07:30 | PCM.PN ---
- General Info Date of Service: 07/25/20 Admission Dx/Problem (Free Text): Admission Diagnosis/Problem Admission Diagnosis/Problem Hypoxia Subjective Update: In to see Jorge. Labs continue to improve slightly. He remains on high flow oxygen years with an FiO2 of 50. He continues to receive dexamethasone. He continues to prone, ambulate around the room, and utilize his Acapella and incentive spirometry. He reports that he feels better than yesterday. Continue plan with hope of weaning oxygen as patient tolerates. Functional Status: Reports: Pain Controlled, Tolerating Diet, Ambulating, Urinating, Incentive Spirometry, Other (Acapella ). Denies: New Symptoms - Review of Systems General: Reports: No Symptoms. Denies: Fever, Weakness, Fatigue, Malaise, Chills HEENT: Reports: No Symptoms. Denies: Headaches, Sore Throat Pulmonary: Reports: Shortness of Breath, Cough. Denies: Sputum, Wheezing Cardiovascular: Reports: Dyspnea on Exertion. Denies: Chest Pain, Palpitations, Edema Gastrointestinal: Reports: No Symptoms. Denies: Abdominal Pain, Constipation, Vomiting Genitourinary: Reports: No Symptoms. Denies: Pain Musculoskeletal: Reports: No Symptoms Skin: Reports: No Symptoms. Denies: Cyanosis Neurological: Reports: No Symptoms. Denies: Confusion, Numbness, Tingling, Difficulty Walking, Gait Disturbance Psychiatric: Reports: No Symptoms - Patient Data Vitals - Most Recent: Last Vital Signs Temp 97.9 F 07/24/20 20:36 Pulse 71 07/25/20 05:27 Resp 20 07/24/20 20:36 BP 120/64 07/25/20 05:27 Pulse Ox 93 L 07/25/20 05:37 Weight - Most Recent: 193 lb 1.6 oz I&O - Last 24 Hours: Intake & Output 07/24/20 07/25/20 07/25/20 22:59 06:59 14:59 Intake Total 1240 500 Output Total 1000 Balance 1240 -500 Lab Results Last 24 Hours: Laboratory Results - last 24 hr 07/25/20 07/25/20 07/25/20 Range/Units 05:49 05:49 05:49 WBC 10.34 H (4.23-9.07) K/mm3 RBC 4.75 (4.63-6.08) M/mm3 Hgb 14.7 (13.7-17.5) gm/dl Hct 44.5 (40.1-51.0) % MCV 93.7 H (79.0-92.2) fl MCH 30.9 (25.7-32.2) pg MCHC 33.0 (32.2-35.5) g/dl RDW Std Deviation 44.7 H (35.1-43.9) fL Plt Count 312 (163-337) K/mm3 MPV 10.0 (9.4-12.3) fl Neut % (Auto) 71.7 H (34.0-67.9) % Lymph % (Auto) 12.2 L (21.8-53.1) % Spencer % (Auto) 9.8 (5.3-12.2) % Eos % (Auto) 0.2 L (0.8-7.0) Baso % (Auto) 0.2 (0.1-1.2) % Neut # (Auto) 7.42 H (1.78-5.38) K/mm3 Lymph # (Auto) 1.26 L (1.32-3.57) K/mm3 Spencer # (Auto) 1.01 H (0.30-0.82) K/mm3 Eos # (Auto) 0.02 L (0.04-0.54) K/mm3 Baso # (Auto) 0.02 (0.01-0.08) K/mm3 Manual Slide Review Normal smear D-Dimer, Quantitative 2.10 H (0.19-0.50) mg/L Sodium 133 L (136-145) mEq/L Potassium 4.2 (3.5-5.1) mEq/L Chloride 98 (98-107) mEq/L Carbon Dioxide 26 (21-32) mEq/L Anion Gap 13.2 (5-15) BUN 37 H (7-18) mg/dL Creatinine 1.0 (0.7-1.3) mg/dL Est Cr Clr Drug Dosing 69.96 mL/min Estimated GFR (MDRD) > 60 (>60) mL/min BUN/Creatinine Ratio 37.0 H (14-18) Glucose 115 (83-115) mg/dL Calcium 9.3 (8.5-10.1) mg/dL Magnesium 2.0 (1.8-2.4) mg/dl Total Bilirubin 0.5 (0.2-1.0) mg/dL AST 26 (15-37) U/L ALT 115 H (16-63) U/L Alkaline Phosphatase 38 L (46-116) U/L C-Reactive Protein 2.7 H* (<1.0) mg/dL Total Protein 7.3 (6.4-8.2) g/dl Albumin 2.6 L (3.4-5.0) g/dl Globulin 4.7 gm/dL Albumin/Globulin Ratio 0.6 L (1-2) Twin Results Last 24 Hours: Microbiology 07/18/20 15:10 Aerobic Blood Culture - Preliminary Blood - Venous - Lab Draw NO GROWTH AFTER 6 DAYS Anaerobic Blood Culture - Preliminary NO GROWTH AFTER 6 DAYS 07/18/20 14:57 Aerobic Blood Culture - Preliminary Blood - Venous NO GROWTH AFTER 6 DAYS Anaerobic Blood Culture - Preliminary NO GROWTH AFTER 6 DAYS Med Orders - Current: Current Medications Acetaminophen (Tylenol) 650 mg PO Q4H PRN PRN Reason: Pain (Mild 1-3)/fever Ascorbic Acid (Vitamin C) 1,000 mg PO BID [facility] Last Admin: 07/24/20 20:37 Dose: 1,000 mg Documented by: Chlorthalidone (Chlorthalidone) 25 mg PO DAILY [facility] Last Admin: 07/24/20 08:27 Dose: 25 mg Documented by: Cholecalciferol (Vitamin D3) 25 mcg PO BID [facility] Last Admin: 07/24/20 20:36 Dose: 25 mcg Documented by: Dexamethasone (Dexamethasone) 6 mg PO DAILY [facility] Stop: 07/27/20 09:01 Last Admin: 07/24/20 08:26 Dose: 6 mg Documented by: Enoxaparin Sodium (Lovenox) 40 mg SUBCUT Q12H [facility] Last Admin: 07/24/20 20:38 Dose: 40 mg Documented by: Hydralazine HCl (Apresoline) 10 mg IVPUSH Q4H PRN PRN Reason: Hypertension Last Admin: 07/22/20 21:19 Dose: 10 mg Documented by: Losartan Potassium (Cozaar) 50 mg PO BEDTIME [facility] Last Admin: 07/24/20 20:36 Dose: 50 mg Documented by: Metoprolol Tartrate (Lopressor) 50 mg PO BID [facility] Last Admin: 07/24/20 20:37 Dose: 50 mg Documented by: Multivitamins (Thera) 1 each PO DAILY [facility] Last Admin: 07/24/20 08:27 Dose: 1 each Documented by: Ondansetron HCl (Zofran) 4 mg IV Q4H PRN PRN Reason: Nausea/Vomiting Zinc Sulfate (Zincate) 220 mg PO DAILY [facility] Last Admin: 07/24/20 08:27 Dose: 220 mg Documented by: Discontinued Medications Acetaminophen (Tylenol) 975 mg PO ONETIME ONE Stop: 07/18/20 16:19 Last Admin: 07/18/20 16:33 Dose: 975 mg Documented by: Dexamethasone (Decadron) 6 mg IVPUSH ONETIME ONE Stop: 07/18/20 16:11 Last Admin: 07/18/20 16:32 Dose: 6 mg Documented by: Enoxaparin Sodium (Lovenox) 40 mg SUBCUT DAILY [facility] Last Admin: 07/22/20 09:34 Dose: 40 mg Documented by: Hydralazine HCl (Apresoline) 10 mg IVPUSH ONETIME ONE Stop: 07/21/20 17:21 Last Admin: 07/21/20 17:24 Dose: 10 mg Documented by: Hydralazine HCl (Apresoline) Confirm Administered Dose 20 mg .ROUTE .STK-MED ONE Stop: 07/21/20 17:23 Last Admin: 07/21/20 17:46 Dose: Not Given Documented by: Dextrose/Lactated Ringer's (Dextrose 5%-Lactated Ringers) 1,000 mls @ 150 mls/hr IV ASDIRECTED [facility] Last Admin: 07/18/20 15:02 Dose: 150 mls/hr Documented by: Remdesivir 200 mg/ Sodium (Chloride) 250 mls @ 250 mls/hr IV ONETIME ONE Stop: 07/18/20 17:12 Last Admin: 07/18/20 17:43 Dose: 250 mls/hr Documented by: Remdesivir 100 mg/ Sodium (Chloride) 100 mls @ 100 mls/hr IV Q24H [facility] Stop: 07/22/20 18:14 Last Admin: 07/22/20 17:03 Dose: 100 mls/hr Documented by: Ibuprofen (Motrin) 600 mg PO ONETIME ONE Stop: 07/18/20 14:31 Last Admin: 07/18/20 15:03 Dose: 600 mg Documented by: Sodium Phosphate (Neutra-Phos) 250 mg PO BID [facility] Stop: 07/19/20 21:01 Last Admin: 07/19/20 20:28 Dose: 250 mg Documented by: - Exam Quality Assessment: Supplemental Oxygen (High flow), DVT Prophylaxis. No: Urine Catheter General: Alert, Oriented, Cooperative, No Acute Distress HEENT: Pupils Equal, Pupils Reactive, Mucous Membr. Moist/[place] Neck: Supple, Trachea Midline Lungs: Normal Respiratory Effort, Decreased Breath Sounds Cardiovascular: Regular Rate, Regular Rhythm GI/Abdominal Exam: Normal Bowel Sounds, Soft, Non-Tender, No Distention (Male) Exam: Deferred Back Exam: Normal Inspection, Full Range of Motion Extremities: Normal Inspection, Normal Range of Motion, Non-Tender, No Pedal Edema, Normal Capillary Refill Skin: Warm, Dry, Intact Neurological: No New Focal Deficit Psy/Mental Status: Alert, Normal Affect, Normal Mood Sepsis Event Note - Evaluation Sepsis Screening Result: No Definite Risk - Focused Exam Vital Signs: Vital Signs Temp Pulse Resp BP Pulse Ox Pulse Ox 07/25/20 05:37 93 L 07/25/20 05:27 71 120/64 93 L 07/24/20 20:37 92 157/68 H 07/24/20 20:36 97.9 F 92 20 157/68 H 90 L 07/24/20 20:03 91 L - Problem List & Annotations (1) COVID-19 determined by clinical diagnostic criteria SNOMED Code(s): 235640381, 608547710 Code(s): U07.1 - COVID-19 Status: Acute Priority: High Current Visit: Yes (2) Hypertension SNOMED Code(s): 16057183 Code(s): I10 - ESSENTIAL (PRIMARY) HYPERTENSION Status: Acute Priority: High Current Visit: Yes Qualifiers: Hypertension type: unspecified Qualified Code(s): I10 - Essential (primary) hypertension (3) Pneumonia due to COVID-19 virus SNOMED Code(s): 861544713964346009 Code(s): U07.1 - COVID-19; J12.89 - OTHER VIRAL PNEUMONIA Status: Acute Priority: High Current Visit: Yes (4) Hypoxia SNOMED Code(s): 347555446 Code(s): R09.02 - HYPOXEMIA Status: Acute Priority: High Current Visit: Yes (5) Hypophosphatemia SNOMED Code(s): 1758867 Code(s): E83.39 - OTHER DISORDERS OF PHOSPHORUS METABOLISM Status: Acute Priority: High Current Visit: Yes - Problem List Review Problem List Initiated/Reviewed/Updated: Yes - My Orders Last 24 Hours: My Active Orders 07/26/20 05:11 CBC WITH AUTO DIFF [HEME] AM CMP [COMPREHENSIVE METABOLIC PN,CMP] [CHEM] AM CRP [C-REACTIVE PROTEIN] [CHEM] AM DD [D-DIMER QUANTITATIVE] [COAG] AM MAGNESIUM [CHEM] AM 07/27/20 05:11 CBC WITH AUTO DIFF [HEME] AM CMP [COMPREHENSIVE METABOLIC PN,CMP] [CHEM] AM CRP [C-REACTIVE PROTEIN] [CHEM] AM DD [D-DIMER QUANTITATIVE] [COAG] AM MAGNESIUM [CHEM] AM - Assessment Assessment:: Assessment - Day of admission - 07/18/2020 COVID-19 infection with pneumonia and hypoxemia * Initial symptoms started on July 07 with positive diagnosis on the . * Initial symptoms included fever, chills, nonproductive cough, sore throat, myalgias. * Recurrence of fever over the last couple days as high as 104 in the emergency department today. * Increasing weakness and fatigue likely secondary to poor oral intake and hypoxemia. * Started on dexamethasone and remdesivir in the emergency department while awaiting admission. Hypertension * On metoprolol 50 mg twice daily at home * Blood pressure on admission was 155/64 * No history of heart disease, congestive heart failure, or lung disease. * Stopped smoking in 1999. 07/19/2020 COVID-19 infection with pneumonia and hypoxemia * Ambulating around room * Continues to utilize acapella and IS * On 5L O2 * Dry cough with pleuritic chest pain when coughing * Denies GI symptoms * WBC 6.16 * D-Dimer 1.18 * Creatinine 1.1 with GFR >60 * CRP 25.5 * Remdesivir - day 2/ * Dexamethasone - day 2/ Hypertension * Continue metoprolol 50 mg twice daily at home * Blood pressure on admission was 155/64; Today 157/67 * No history of heart disease, congestive heart failure, or lung disease. * Stopped smoking in 1999 * Monitor Hypophosphatemia * Phosphorous 1.5 * Supplemented 07/20/2020 COVID-19 infection with pneumonia and hypoxemia * Ambulating around room * States he feels better and is working with PT/OT * Afebrile, VSS * Continues to utilize acapella and IS * On 4L O2 (improved from 5L) * Dry cough with pleuritic chest pain when coughing * Denies GI symptoms * WBC 6.36-->6.16-->13.28 (Steroid ?) * D-Dimer 1.38-->1.18-->1.20 * Creatinine 1.1 with GFR >60 * CRP 24.2-->25.5-->14.1 * Remdesivir - day 10/19 * Dexamethasone - day 10/19 Hypertension, stable * Continue metoprolol 50 mg twice daily at home * Blood pressure on admission was 155/64; Today 149/68 * No history of heart disease, congestive heart failure, or lung disease. * Stopped smoking in 1999 * Monitor Hypophosphatemia, Resolved * Phosphorous 1.5-->3.6 July 21, 2020 COVID-19 infection with pneumonia and hypoxemia Hypoalbuminemia * Ambulating around room * Continues to feel better and is working with PT/OT * Afebrile, VSS * Continues to utilize acapella and IS * On 3L O2 (improved from 5L) * Dry cough with pleuritic chest pain when coughing * Denies GI symptoms * WBC 6.36-->6.16-->13.28 --> 11.1 * D-Dimer 1.38-->1.18-->1.20--> 1.44 * Creatinine 1.0 with GFR >60 * CRP 24.2-->25.5-->14.1--> 6.4 * Albumin 2.4 * Remdesivir - day 11/19 * Dexamethasone - day 11/19 Hypertension, stable * Continue metoprolol 50 mg twice daily at home * Blood pressure on admission was 155/64; Today 149/68 * No history of heart disease, congestive heart failure, or lung disease. * Stopped smoking in 1999 * Monitor Hypophosphatemia, Resolved July 22, 2020 COVID-19 infection with pneumonia and hypoxemia Hypoalbuminemia * Ambulating around room * Continues to feel better and is working with PT/OT * Afebrile, VSS * Continues to utilize acapella and IS * Deteriorated today and is now on 6 L O2 * Dry cough with pleuritic chest pain when coughing * Denies GI symptoms * WBC 6.36-->6.16-->13.28 --> 11.1-->11.7 * D-Dimer 1.38-->1.18-->1.20--> 1.44-->2.3 * Creatinine 1.0 with GFR >60 * CRP 24.2-->25.5-->14.1--> 6.4-->4.0 * Albumin 2.4. * 25 hydroxy vitamin D 62 * Remdesivir - day 12/19 * Dexamethasone - day 12/19 Hypertension, deteriorated * Continue metoprolol 50 mg twice daily at home * Started on chlorthalidone 25 mg this morning * Blood pressure on admission was 155/64; Today 149/68 * No history of heart disease, congestive heart failure, or lung disease. * Stopped smoking in 1999 * Monitor Elevated liver enzymes * Possibly secondary to remdesivir * AST 97, ALT 221, alkaline phosphatase 36 * Hypophosphatemia, Resolved July 23, 2020 COVID-19 infection with pneumonia and hypoxemia Hypoalbuminemia * Continues to ambulate around room and utilize IS/Acapella * Remains stable on 6L O2 * Denies GI symptoms * WBC 6.36-->6.16-->13.28 --> 11.1-->11.7-->10.15 * D-Dimer 1.38-->1.18-->1.20--> 1.44-->2.3-->3.44 * Creatinine 1.0 with GFR >60-->0.9/>60 * CRP 24.2-->25.5-->14.1--> 6.4-->4.0-->4.5 * Albumin 2.4-->2.5 * 25 hydroxy vitamin D 62 * Completed Remdesivir - day 12/19 * Dexamethasone - day 01/23 Hypertension, deteriorated * Continue metoprolol 50 mg twice daily at home * Started on chlorthalidone 25 mg * Blood pressure on admission was 155/64; Today 120/52 * No history of heart disease, congestive heart failure, or lung disease. * Stopped smoking in 1999 * Monitor Elevated liver enzymes, improved * Possibly secondary to remdesivir * AST 97, ALT 221, alkaline phosphatase 36--> AST 41, ALT 161, Alk Phos 41 Hypophosphatemia, Resolved July 24, 2020 COVID-19 infection with pneumonia and hypoxemia Hypoalbuminemia * Continues to ambulate around room and utilize IS/Acapella * Remains stable on 6L O2 * Denies GI symptoms * WBC 6.36-->6.16-->13.28 --> 11.1-->11.7-->10.15-->9.77 * D-Dimer 1.38-->1.18-->1.20--> 1.44-->2.3-->3.44-->2.30 * Creatinine 1.0 with GFR >60-->0.9/>60-->1.0/>60 * CRP 24.2-->25.5-->14.1--> 6.4-->4.0-->4.5-->3.8 * Albumin 2.4-->2.5-->2.7 * 25 hydroxy vitamin D 62 * Completed Remdesivir * Dexamethasone - day 02/22 Hypertension, deteriorated * Continue metoprolol 50 mg twice daily at home * Started on chlorthalidone 25 mg * Blood pressure on admission was 155/64; Today 136/62 * No history of heart disease, congestive heart failure, or lung disease. * Stopped smoking in 1999 * Monitor Elevated liver enzymes, continues to improve * Possibly secondary to remdesivir * AST 97, ALT 221, alkaline phosphatase 36--> AST 41, ALT 161, Alk Phos 41--> AST 31, ALT 133, Alk Phos 41 Hypophosphatemia, Resolved July 25, 2020 COVID-19 infection with pneumonia and hypoxemia Hypoalbuminemia * Continues to ambulate around room and utilize IS/Acapella * Remains stable on 6L O2 * Denies GI symptoms * WBC 6.36-->6.16-->13.28 --> 11.1-->11.7-->10.15-->9.77-->10.34 * D-Dimer 1.38-->1.18-->1.20--> 1.44-->2.3-->3.44-->2.30-->2.10 * Creatinine 1.0 with GFR >60-->0.9/>60-->1.0/>60 * CRP 24.2-->25.5-->14.1--> 6.4-->4.0-->4.5-->3.8-->2.7 * Albumin 2.4-->2.5-->2.7-->2.6 * 25 hydroxy vitamin D 62 * Completed Remdesivir * Dexamethasone - day 03/25 Hypertension, deteriorated * Continue metoprolol 50 mg twice daily at home * Started on chlorthalidone 25 mg * Blood pressure on admission was 155/64; Today 118/56 * No history of heart disease, congestive heart failure, or lung disease. * Stopped smoking in 1999 * Monitor Elevated liver enzymes, continues to improve * Possibly secondary to remdesivir * AST 97-->41-->31-->26 * ALT 221-->161-->133-->115 * alkaline phosphatase 36-->41-->41-->38 - Plan Plan:: Plan * Continue current management * Admit to medical floor on telemetry and continuous pulse ox * Completed remdesivir * Day 8 of 10 of dexamethasone * Continue Lovenox 40 mg twice daily * Encourage proning * FiO2 to keep SPO2 88% to 94% * Dietary consult, encourage protein intake and good nutrition. * Patient takes vitamin D and zinc at home and will continue the above. * Continue metoprolol 50 mg twice daily * Continue High Flow O2 * Daily labs as ordered * VTE prophylaxis with Lovenox * CODE STATUS: Full code Length of stay greater than 96 hours secondary to treatment for Covid.
[2020-07-25] MEDS: Enoxaparin 40 MG/0.4 ML Syringe SUBCUT SCH ×2 (08:35→21:46)
[2020-07-25] MEDS: Metoprolol Tartrate 50 MG Tab PO SCH ×2 (08:36→21:47)
[2020-07-25] MEDS: Multivitamins,Therapeutic Tab PO SCH (08:36)
[2020-07-25] MEDS: Cholecalciferol (Vitamin D3) 25 MCG Tab PO SCH ×2 (08:36→21:46)
[2020-07-25] MEDS: Chlorthalidone 25 MG Tab PO SCH (08:36)
[2020-07-25] MEDS: Ascorbic Acid 500 MG Tab PO SCH ×2 (08:36→21:47)
[2020-07-25] MEDS: Dexamethasone 4 MG Tab PO SCH (08:37)
[2020-07-25] MEDS: Zinc Sulfate 220 MG Cap PO SCH (08:37)
[2020-07-25] MEDS: Losartan 25 MG Tab PO SCH (21:47)
[2020-07-26] MEDS: Dexamethasone 4 MG Tab PO SCH (08:42)
[2020-07-26] MEDS: Multivitamins,Therapeutic Tab PO SCH (08:42)
[2020-07-26] MEDS: Cholecalciferol (Vitamin D3) 25 MCG Tab PO SCH ×2 (08:42→22:19)
[2020-07-26] MEDS: Metoprolol Tartrate 50 MG Tab PO SCH ×2 (08:43→22:18)
[2020-07-26] MEDS: Zinc Sulfate 220 MG Cap PO SCH (08:45)
[2020-07-26] MEDS: Chlorthalidone 25 MG Tab PO SCH (08:45)
[2020-07-26] MEDS: Ascorbic Acid 500 MG Tab PO SCH ×2 (08:46→22:19)
[2020-07-26] MEDS: Enoxaparin 40 MG/0.4 ML Syringe SUBCUT SCH ×2 (08:46→22:20)
--- NOTE | 2020-07-26 15:03 | PCM.PN ---
- General Info Date of Service: 07/26/20 Admission Dx/Problem (Free Text): Admission Diagnosis/Problem Admission Diagnosis/Problem Hypoxia Subjective Update: Patient reports feeling well. Denies loss of taste or smell, nausea, vomiting, diarrhea, or general malaise. States he does have a cough with scant amount of sputum. Continues on high flow oxygen. Functional Status: Reports: Pain Controlled, Tolerating Diet, Ambulating, Urinating, Incentive Spirometry - Review of Systems General: Reports: No Symptoms HEENT: Reports: No Symptoms Pulmonary: Reports: Shortness of Breath, Cough. Denies: Pleuritic Chest Pain, Sputum, Wheezing Cardiovascular: Reports: No Symptoms Gastrointestinal: Reports: No Symptoms Genitourinary: Reports: No Symptoms Musculoskeletal: Reports: No Symptoms Skin: Reports: No Symptoms Neurological: Reports: No Symptoms Psychiatric: Reports: No Symptoms - Patient Data Vitals - Most Recent: Last Vital Signs Temp 97.9 F 07/26/20 11:23 Pulse 73 07/26/20 11:23 Resp 18 07/26/20 11:23 BP 118/51 L 07/26/20 11:23 Pulse Ox 90 L 07/26/20 13:52 Weight - Most Recent: 199 lb 4.8 oz I&O - Last 24 Hours: Intake & Output 07/26/20 07/26/20 07/26/20 06:59 14:59 22:59 Intake Total 800 540 Output Total 1075 Balance -275 540 Lab Results Last 24 Hours: Laboratory Results - last 24 hr 07/26/20 07/26/20 07/26/20 Range/Units 04:33 04:33 04:33 WBC 11.95 H (4.23-9.07) K/mm3 RBC 4.63 (4.63-6.08) M/mm3 Hgb 14.4 (13.7-17.5) gm/dl Hct 43.7 (40.1-51.0) % MCV 94.4 H (79.0-92.2) fl MCH 31.1 (25.7-32.2) pg MCHC 33.0 (32.2-35.5) g/dl RDW Std Deviation 44.8 H (35.1-43.9) fL Plt Count 289 (163-337) K/mm3 MPV 10.4 (9.4-12.3) fl Neut % (Auto) 76.5 H (34.0-67.9) % Lymph % (Auto) 9.7 L (21.8-53.1) % [place] % (Auto) 8.8 (5.3-12.2) % Eos % (Auto) 0.1 L (0.8-7.0) Baso % (Auto) 0.2 (0.1-1.2) % Neut # (Auto) 9.15 H (1.78-5.38) K/mm3 Lymph # (Auto) 1.16 L (1.32-3.57) K/mm3 [place] # (Auto) 1.05 H (0.30-0.82) K/mm3 Eos # (Auto) 0.01 L (0.04-0.54) K/mm3 Baso # (Auto) 0.02 (0.01-0.08) K/mm3 Manual Slide Review Abnormal smear D-Dimer, Quantitative 3.37 H (0.19-0.50) mg/L Sodium 135 L (136-145) mEq/L Potassium 4.6 (3.5-5.1) mEq/L Chloride 100 (98-107) mEq/L Carbon Dioxide 25 (21-32) mEq/L Anion Gap 14.6 (5-15) BUN 42 H (7-18) mg/dL Creatinine 1.0 (0.7-1.3) mg/dL Est Cr Clr Drug Dosing 69.96 mL/min Estimated GFR (MDRD) > 60 (>60) mL/min BUN/Creatinine Ratio 42.0 H (14-18) Glucose 119 H (83-115) mg/dL Calcium 9.6 (8.5-10.1) mg/dL Magnesium 2.2 (1.8-2.4) mg/dl Total Bilirubin 0.4 (0.2-1.0) mg/dL AST 23 (15-37) U/L ALT 100 H (16-63) U/L Alkaline Phosphatase 37 L (46-116) U/L C-Reactive Protein 1.7 H* (<1.0) mg/dL Total Protein 7.2 (6.4-8.2) g/dl Albumin 2.7 L (3.4-5.0) g/dl Globulin 4.5 gm/dL Albumin/Globulin Ratio 0.6 L (1-2) Twin Results Last 24 Hours: Microbiology 07/18/20 14:57 Aerobic Blood Culture - Final Blood - Venous NO GROWTH AFTER 7 DAYS Anaerobic Blood Culture - Final NO GROWTH AFTER 7 DAYS 07/18/20 15:10 Aerobic Blood Culture - Final Blood - Venous - Lab Draw NO GROWTH AFTER 7 DAYS Anaerobic Blood Culture - Final NO GROWTH AFTER 7 DAYS Med Orders - Current: Current Medications Acetaminophen (Tylenol) 650 mg PO Q4H PRN PRN Reason: Pain (Mild 1-3)/fever Ascorbic Acid (Vitamin C) 1,000 mg PO BID [facility] Last Admin: 07/26/20 08:46 Dose: 1,000 mg Documented by: Chlorthalidone (Chlorthalidone) 25 mg PO DAILY [facility] Last Admin: 07/26/20 08:45 Dose: 25 mg Documented by: Cholecalciferol (Vitamin D3) 25 mcg PO BID [facility] Last Admin: 07/26/20 08:42 Dose: 25 mcg Documented by: Dexamethasone (Dexamethasone) 6 mg PO DAILY [facility] Stop: 07/27/20 09:01 Last Admin: 07/26/20 08:42 Dose: 6 mg Documented by: Enoxaparin Sodium (Lovenox) 40 mg SUBCUT Q12H [facility] Last Admin: 07/26/20 08:46 Dose: 40 mg Documented by: Hydralazine HCl (Apresoline) 10 mg IVPUSH Q4H PRN PRN Reason: Hypertension Last Admin: 07/22/20 21:19 Dose: 10 mg Documented by: Losartan Potassium (Cozaar) 50 mg PO BEDTIME [facility] Last Admin: 07/25/20 21:47 Dose: 50 mg Documented by: Metoprolol Tartrate (Lopressor) 50 mg PO BID [facility] Last Admin: 07/26/20 08:43 Dose: 50 mg Documented by: Multivitamins (Thera) 1 each PO DAILY [facility] Last Admin: 07/26/20 08:42 Dose: 1 each Documented by: Ondansetron HCl (Zofran) 4 mg IV Q4H PRN PRN Reason: Nausea/Vomiting Zinc Sulfate (Zincate) 220 mg PO DAILY [facility] Last Admin: 07/26/20 08:45 Dose: 220 mg Documented by: Discontinued Medications Acetaminophen (Tylenol) 975 mg PO ONETIME ONE Stop: 12/02/20 16:19 Last Admin: 07/18/20 16:33 Dose: 975 mg Documented by: Dexamethasone (Decadron) 6 mg IVPUSH ONETIME ONE Stop: 07/18/20 16:11 Last Admin: 07/18/20 16:32 Dose: 6 mg Documented by: Enoxaparin Sodium (Lovenox) 40 mg SUBCUT DAILY [facility] Last Admin: 07/22/20 09:34 Dose: 40 mg Documented by: Hydralazine HCl (Apresoline) 10 mg IVPUSH ONETIME ONE Stop: 07/21/20 17:21 Last Admin: 07/21/20 17:24 Dose: 10 mg Documented by: Hydralazine HCl (Apresoline) Confirm Administered Dose 20 mg .ROUTE .STK-MED ONE Stop: 07/21/20 17:23 Last Admin: 07/21/20 17:46 Dose: Not Given Documented by: Dextrose/Lactated Ringer's (Dextrose 5%-Lactated Ringers) 1,000 mls @ 150 mls/hr IV ASDIRECTED [facility] Last Admin: 07/18/20 15:02 Dose: 150 mls/hr Documented by: Remdesivir 200 mg/ Sodium (Chloride) 250 mls @ 250 mls/hr IV ONETIME ONE Stop: 07/18/20 17:12 Last Admin: 07/18/20 17:43 Dose: 250 mls/hr Documented by: Remdesivir 100 mg/ Sodium (Chloride) 100 mls @ 100 mls/hr IV Q24H [facility] Stop: 07/22/20 18:14 Last Admin: 07/22/20 17:03 Dose: 100 mls/hr Documented by: Ibuprofen (Motrin) 600 mg PO ONETIME ONE Stop: 07/18/20 14:31 Last Admin: 07/18/20 15:03 Dose: 600 mg Documented by: Sodium Phosphate (Neutra-Phos) 250 mg PO BID [facility] Stop: 07/19/20 21:01 Last Admin: 07/19/20 20:28 Dose: 250 mg Documented by: - Exam Quality Assessment: Supplemental Oxygen (High flow O2), DVT Prophylaxis (Lovenox) General: Alert, Oriented, Cooperative HEENT: Pupils Equal, Pupils Reactive, Mucous Membr. Moist/Oasis Neck: Supple, Trachea Midline Lungs: Decreased Breath Sounds Cardiovascular: Regular Rate, Regular Rhythm, No Murmurs GI/Abdominal Exam: Normal Bowel Sounds, Soft, Non-Tender, No Distention (Male) Exam: Deferred Back Exam: Normal Inspection, Full Range of Motion Extremities: Normal Inspection, Normal Range of Motion, Non-Tender, No Pedal Edema, Normal Capillary Refill Peripheral Pulses: 2+: Radial (L), Radial (R), Dorsalis Pedis (L), Dorsalis Pedis (R) Skin: Warm, Dry, Intact Neurological: No New Focal Deficit Psy/Mental Status: Alert, Normal Affect, Normal Mood Sepsis Event Note - Evaluation Sepsis Screening Result: No Definite Risk - Focused Exam Vital Signs: Vital Signs Temp Pulse Resp BP Pulse Ox Pulse Ox 07/26/20 13:52 90 L 07/26/20 11:23 97.9 F 73 18 118/51 L 88 L 07/26/20 11:17 91 L 07/26/20 08:45 73 116/67 88 L 07/26/20 08:43 72 116/67 07/26/20 08:17 90 L 07/26/20 07:34 97.9 F 63 18 124/69 88 L 07/26/20 06:30 91 L 07/26/20 05:46 97.9 F 82 20 122/62 91 L 07/26/20 04:55 92 L - Problem List & Annotations (1) COVID-19 determined by clinical diagnostic criteria SNOMED Code(s): 008424915, 548608439 Code(s): U07.1 - COVID-19 Status: Acute Priority: High Current Visit: Yes (2) Hypertension SNOMED Code(s): 03660152 Code(s): I10 - ESSENTIAL (PRIMARY) HYPERTENSION Status: Acute Priority: High Current Visit: Yes Qualifiers: Hypertension type: unspecified Qualified Code(s): I10 - Essential (primary) hypertension (3) Hypophosphatemia SNOMED Code(s): 2453925 Code(s): E83.39 - OTHER DISORDERS OF PHOSPHORUS METABOLISM Status: Acute Priority: High Current Visit: Yes (4) Hypoxia SNOMED Code(s): 365955571 Code(s): R09.02 - HYPOXEMIA Status: Acute Priority: High Current Visit: Yes (5) Pneumonia due to COVID-19 virus SNOMED Code(s): 840772910655598869 Code(s): U07.1 - COVID-19; J12.89 - OTHER VIRAL PNEUMONIA Status: Acute Priority: High Current Visit: Yes - Problem List Review Problem List Initiated/Reviewed/Updated: Yes - My Orders Last 24 Hours: My Active Orders 07/26/20 11:08 Chest 1V Frontal [CR] Routine - Assessment Assessment:: Assessment - Day of admission - 07/18/2020 COVID-19 infection with pneumonia and hypoxemia * Initial symptoms started on July 07 with positive diagnosis on the . * Initial symptoms included fever, chills, nonproductive cough, sore throat, myalgias. * Recurrence of fever over the last couple days as high as 104 in the emergency department today. * Increasing weakness and fatigue likely secondary to poor oral intake and hypoxemia. * Started on dexamethasone and remdesivir in the emergency department while awaiting admission. Hypertension * On metoprolol 50 mg twice daily at home * Blood pressure on admission was 155/64 * No history of heart disease, congestive heart failure, or lung disease. * Stopped smoking in 1999. 07/19/2020 COVID-19 infection with pneumonia and hypoxemia * Ambulating around room * Continues to utilize acapella and IS * On 5L O2 * Dry cough with pleuritic chest pain when coughing * Denies GI symptoms * WBC 6.16 * D-Dimer 1.18 * Creatinine 1.1 with GFR >60 * CRP 25.5 * Remdesivir - day 09/21 * Dexamethasone - day 09/21 Hypertension * Continue metoprolol 50 mg twice daily at home * Blood pressure on admission was 155/64; Today 157/67 * No history of heart disease, congestive heart failure, or lung disease. * Stopped smoking in 1999 * Monitor Hypophosphatemia * Phosphorous 1.5 * Supplemented 07/20/2020 COVID-19 infection with pneumonia and hypoxemia * Ambulating around room * States he feels better and is working with PT/OT * Afebrile, VSS * Continues to utilize acapella and IS * On 4L O2 (improved from 5L) * Dry cough with pleuritic chest pain when coughing * Denies GI symptoms * WBC 6.36-->6.16-->13.28 (Steroid ?) * D-Dimer 1.38-->1.18-->1.20 * Creatinine 1.1 with GFR >60 * CRP 24.2-->25.5-->14.1 * Remdesivir - day 3/5 * Dexamethasone - day 3 Hypertension, stable * Continue metoprolol 50 mg twice daily at home * Blood pressure on admission was 155/64; Today 149/68 * No history of heart disease, congestive heart failure, or lung disease. * Stopped smoking in 1999 * Monitor Hypophosphatemia, Resolved * Phosphorous 1.5-->3.6 July 21, 2020 COVID-19 infection with pneumonia and hypoxemia Hypoalbuminemia * Ambulating around room * Continues to feel better and is working with PT/OT * Afebrile, VSS * Continues to utilize acapella and IS * On 3L O2 (improved from 5L) * Dry cough with pleuritic chest pain when coughing * Denies GI symptoms * WBC 6.36-->6.16-->13.28 --> 11.1 * D-Dimer 1.38-->1.18-->1.20--> 1.44 * Creatinine 1.0 with GFR >60 * CRP 24.2-->25.5-->14.1--> 6.4 * Albumin 2.4 * Remdesivir - day 11/19 * Dexamethasone - day 11/19 Hypertension, stable * Continue metoprolol 50 mg twice daily at home * Blood pressure on admission was 155/64; Today 149/68 * No history of heart disease, congestive heart failure, or lung disease. * Stopped smoking in 1999 * Monitor Hypophosphatemia, Resolved July 22, 2020 COVID-19 infection with pneumonia and hypoxemia Hypoalbuminemia * Ambulating around room * Continues to feel better and is working with PT/OT * Afebrile, VSS * Continues to utilize acapella and IS * Deteriorated today and is now on 6 L O2 * Dry cough with pleuritic chest pain when coughing * Denies GI symptoms * WBC 6.36-->6.16-->13.28 --> 11.1-->11.7 * D-Dimer 1.38-->1.18-->1.20--> 1.44-->2.3 * Creatinine 1.0 with GFR >60 * CRP 24.2-->25.5-->14.1--> 6.4-->4.0 * Albumin 2.4. * 25 hydroxy vitamin D 62 * Remdesivir - day 12/19 * Dexamethasone - day 12/19 Hypertension, deteriorated * Continue metoprolol 50 mg twice daily at home * Started on chlorthalidone 25 mg this morning * Blood pressure on admission was 155/64; Today 149/68 * No history of heart disease, congestive heart failure, or lung disease. * Stopped smoking in 1999 * Monitor Elevated liver enzymes * Possibly secondary to remdesivir * AST 97, ALT 221, alkaline phosphatase 36 * Hypophosphatemia, Resolved July 23, 2020 COVID-19 infection with pneumonia and hypoxemia Hypoalbuminemia * Continues to ambulate around room and utilize IS/Acapella * Remains stable on 6L O2 * Denies GI symptoms * WBC 6.36-->6.16-->13.28 --> 11.1-->11.7-->10.15 * D-Dimer 1.38-->1.18-->1.20--> 1.44-->2.3-->3.44 * Creatinine 1.0 with GFR >60-->0.9/>60 * CRP 24.2-->25.5-->14.1--> 6.4-->4.0-->4.5 * Albumin 2.4-->2.5 * 25 hydroxy vitamin D 62 * Completed Remdesivir - day 12/19 * Dexamethasone - day 01/23 Hypertension, deteriorated * Continue metoprolol 50 mg twice daily at home * Started on chlorthalidone 25 mg * Blood pressure on admission was 155/64; Today 120/52 * No history of heart disease, congestive heart failure, or lung disease. * Stopped smoking in 1999 * Monitor Elevated liver enzymes, improved * Possibly secondary to remdesivir * AST 97, ALT 221, alkaline phosphatase 36--> AST 41, ALT 161, Alk Phos 41 Hypophosphatemia, Resolved July 24, 2020 COVID-19 infection with pneumonia and hypoxemia Hypoalbuminemia * Continues to ambulate around room and utilize IS/Acapella * Remains stable on 6L O2 * Denies GI symptoms * WBC 6.36-->6.16-->13.28 --> 11.1-->11.7-->10.15-->9.77 * D-Dimer 1.38-->1.18-->1.20--> 1.44-->2.3-->3.44-->2.30 * Creatinine 1.0 with GFR >60-->0.9/>60-->1.0/>60 * CRP 24.2-->25.5-->14.1--> 6.4-->4.0-->4.5-->3.8 * Albumin 2.4-->2.5-->2.7 * 25 hydroxy vitamin D 62 * Completed Remdesivir * Dexamethasone - day 02/22 Hypertension, deteriorated * Continue metoprolol 50 mg twice daily at home * Started on chlorthalidone 25 mg * Blood pressure on admission was 155/64; Today 136/62 * No history of heart disease, congestive heart failure, or lung disease. * Stopped smoking in 1999 * Monitor Elevated liver enzymes, continues to improve * Possibly secondary to remdesivir * AST 97, ALT 221, alkaline phosphatase 36--> AST 41, ALT 161, Alk Phos 41--> AST 31, ALT 133, Alk Phos 41 Hypophosphatemia, Resolved July 25, 2020 COVID-19 infection with pneumonia and hypoxemia Hypoalbuminemia * Continues to ambulate around room and utilize IS/Acapella * Remains stable on 6L O2 * Denies GI symptoms * WBC 6.36-->6.16-->13.28 --> 11.1-->11.7-->10.15-->9.77-->10.34 * D-Dimer 1.38-->1.18-->1.20--> 1.44-->2.3-->3.44-->2.30-->2.10 * Creatinine 1.0 with GFR >60-->0.9/>60-->1.0/>60 * CRP 24.2-->25.5-->14.1--> 6.4-->4.0-->4.5-->3.8-->2.7 * Albumin 2.4-->2.5-->2.7-->2.6 * 25 hydroxy vitamin D 62 * Completed Remdesivir * Dexamethasone - day 03/25 Hypertension, deteriorated * Continue metoprolol 50 mg twice daily at home * Started on chlorthalidone 25 mg * Blood pressure on admission was 155/64; Today 118/56 * No history of heart disease, congestive heart failure, or lung disease. * Stopped smoking in 1999 * Monitor Elevated liver enzymes, continues to improve * Possibly secondary to remdesivir * AST 97-->41-->31-->26 * ALT 221-->161-->133-->115 * alkaline phosphatase 36-->41-->41-->38 July 26, 2020 COVID-19 infection with pneumonia and hypoxemia Hypoalbuminemia * Continues to ambulate around room and utilize IS/Acapella * Currently on high flow O2 at 30liters and 40% * Denies GI symptoms * WBC 11.95, D-dimer 3.37, CRP 1.7, albumin 2.7. * 25 hydroxy vitamin D 62 * Completed Remdesivir * Dexamethasone - day 04/25 * Chest xray shows stable coarse bilateral peripheral interstitial infiltrates. Hypertension, deteriorated * Continue metoprolol 50 mg twice daily at home * Started on chlorthalidone 25 mg * Blood pressures have been stable. * No history of heart disease, congestive heart failure, or lung disease. * Stopped smoking in 1999 * Monitor Elevated liver enzymes, continues to improve * Possibly secondary to remdesivir * AST 23, ALT 100, alk phos 37 - Plan Plan:: Plan * Continue current management * Completed remdesivir * Day of dexamethasone * Continue Lovenox 40 mg twice daily * Encourage proning * Continue I-S and flutter valve * FiO2 to keep SPO2 88% to 94% * Dietary consult, encourage protein intake and good nutrition. * Patient takes vitamin D and zinc at home and will continue the above. * Continue metoprolol 50 mg twice daily * Continue High Flow O2 * Daily labs as ordered * VTE prophylaxis with Lovenox * CODE STATUS: Full code Length of stay greater than 96 hours secondary to treatment for Covid.
[2020-07-26] MEDS: Losartan 25 MG Tab PO SCH (22:19)
[2020-07-27] MEDS: Enoxaparin 40 MG/0.4 ML Syringe SUBCUT SCH ×2 (08:09→20:28)
[2020-07-27] MEDS: Dexamethasone 4 MG Tab PO SCH (08:10)
[2020-07-27] MEDS: Cholecalciferol (Vitamin D3) 25 MCG Tab PO SCH ×2 (08:11→20:29)
[2020-07-27] MEDS: Metoprolol Tartrate 50 MG Tab PO SCH ×2 (08:11→20:29)
[2020-07-27] MEDS: Multivitamins,Therapeutic Tab PO SCH (08:11)
[2020-07-27] MEDS: Ascorbic Acid 500 MG Tab PO SCH ×2 (08:11→20:30)
[2020-07-27] MEDS: Zinc Sulfate 220 MG Cap PO SCH (08:12)
[2020-07-27] MEDS: Chlorthalidone 25 MG Tab PO SCH (08:12)
--- NOTE | 2020-07-27 10:33 | CR ---
Chest: Portable view of the chest was obtained. Comparison: Prior chest x-ray of 07/22/20. Patchy areas of increased density noted within both lungs, worse on the right side. Findings are stable from previous exam. Heart size and mediastinum are within normal limits. Scattered degenerative changes seen within the spine. Impression: 1. Continuing increased density within both sides of the chest compatible with COVID pneumonia. 2. No definite change from previous study. Diagnostic code #3 I agree with preliminary report from [facility], finalized on 07/26/20, 12:40 PM [employer]
--- NOTE | 2020-07-27 11:32 | PCM.PN ---
- General Info Date of Service: 07/27/20 Admission Dx/Problem (Free Text): Admission Diagnosis/Problem Admission Diagnosis/Problem Hypoxia Subjective Update: In to see Jorge. He reports he feels better today. They were able to wean his high flow yesterday. We discussed his progress thus far and how he has completed treatment but we still need to work on his respiratory status/oxygen. Lung sounds have improved. Continue attempting to wean oxygen. Will likely require several more days of assistance before able to be discharged. Functional Status: Reports: Pain Controlled, Tolerating Diet, Ambulating, Urinating, Incentive Spirometry, Other (Acapella ). Denies: New Symptoms - Review of Systems General: Reports: No Symptoms. Denies: Fever, Weakness, Fatigue, Malaise, Chills HEENT: Reports: No Symptoms. Denies: Headaches, Sore Throat Pulmonary: Denies: Shortness of Breath (on high flow), Pleuritic Chest Pain, Cough, Sputum, Wheezing Cardiovascular: Reports: Dyspnea on Exertion. Denies: Chest Pain, Palpitations, Edema Gastrointestinal: Reports: No Symptoms. Denies: Abdominal Pain, Constipation, Diarrhea, Nausea, Vomiting Genitourinary: Reports: No Symptoms. Denies: Pain Musculoskeletal: Reports: No Symptoms Skin: Reports: No Symptoms. Denies: Cyanosis Neurological: Reports: No Symptoms. Denies: Confusion, Difficulty Walking, Gait Disturbance Psychiatric: Reports: No Symptoms - Patient Data Vitals - Most Recent: Last Vital Signs Temp 97.3 F 07/27/20 06:22 Pulse 75 07/27/20 08:11 Resp 18 07/27/20 06:22 BP 125/66 07/27/20 08:11 Pulse Ox 89 L 07/27/20 10:00 Weight - Most Recent: 194 lb 11.2 oz I&O - Last 24 Hours: Intake & Output 07/26/20 07/27/20 07/27/20 22:59 06:59 14:59 Intake Total 1420 800 Output Total 400 1100 Balance 1020 -300 Lab Results Last 24 Hours: Laboratory Results - last 24 hr 07/27/20 07/27/20 07/27/20 Range/Units 04:52 04:52 04:52 WBC 12.50 H (4.23-9.07) K/mm3 RBC 4.62 L (4.63-6.08) M/mm3 Hgb 14.2 (13.7-17.5) gm/dl Hct 43.5 (40.1-51.0) % MCV 94.2 H (79.0-92.2) fl MCH 30.7 (25.7-32.2) pg MCHC 32.6 (32.2-35.5) g/dl RDW Std Deviation 44.5 H (35.1-43.9) fL Plt Count 309 (163-337) K/mm3 MPV 10.2 (9.4-12.3) fl Neut % (Auto) 78.1 H (34.0-67.9) % Lymph % (Auto) 9.8 L (21.8-53.1) % [place] % (Auto) 9.6 (5.3-12.2) % Eos % (Auto) 0.2 L (0.8-7.0) Baso % (Auto) 0.2 (0.1-1.2) % Neut # (Auto) 9.76 H (1.78-5.38) K/mm3 Lymph # (Auto) 1.23 L (1.32-3.57) K/mm3 [place] # (Auto) 1.20 H (0.30-0.82) K/mm3 Eos # (Auto) 0.03 L (0.04-0.54) K/mm3 Baso # (Auto) 0.02 (0.01-0.08) K/mm3 Manual Slide Review Abnormal smear D-Dimer, Quantitative 1.37 H (0.19-0.50) mg/L Sodium 134 L (136-145) mEq/L Potassium 4.4 (3.5-5.1) mEq/L Chloride 100 (98-107) mEq/L Carbon Dioxide 24 (21-32) mEq/L Anion Gap 14.4 (5-15) BUN 46 H (7-18) mg/dL Creatinine 1.2 (0.7-1.3) mg/dL Est Cr Clr Drug Dosing 58.30 mL/min Estimated GFR (MDRD) 60 (>60) mL/min BUN/Creatinine Ratio 38.3 H (14-18) Glucose 115 (83-115) mg/dL Calcium 9.7 (8.5-10.1) mg/dL Magnesium 2.2 (1.8-2.4) mg/dl Total Bilirubin 0.5 (0.2-1.0) mg/dL AST 27 (15-37) U/L ALT 101 H (16-63) U/L Alkaline Phosphatase 36 L (46-116) U/L C-Reactive Protein 0.9 (<1.0) mg/dL Total Protein 7.1 (6.4-8.2) g/dl Albumin 2.7 L (3.4-5.0) g/dl Globulin 4.4 gm/dL Albumin/Globulin Ratio 0.6 L (1-2) Med Orders - Current: Current Medications Acetaminophen (Tylenol) 650 mg PO Q4H PRN PRN Reason: Pain (Mild 1-3)/fever Ascorbic Acid (Vitamin C) 1,000 mg PO BID [facility] Last Admin: 07/27/20 08:11 Dose: 1,000 mg Documented by: Chlorthalidone (Chlorthalidone) 25 mg PO DAILY [facility] Last Admin: 07/27/20 08:12 Dose: 25 mg Documented by: Cholecalciferol (Vitamin D3) 25 mcg PO BID [facility] Last Admin: 07/27/20 08:11 Dose: 25 mcg Documented by: Enoxaparin Sodium (Lovenox) 40 mg SUBCUT Q12H [facility] Last Admin: 07/27/20 08:09 Dose: 40 mg Documented by: Hydralazine HCl (Apresoline) 10 mg IVPUSH Q4H PRN PRN Reason: Hypertension Last Admin: 07/22/20 21:19 Dose: 10 mg Documented by: Losartan Potassium (Cozaar) 50 mg PO BEDTIME [facility] Last Admin: 07/26/20 22:19 Dose: 50 mg Documented by: Metoprolol Tartrate (Lopressor) 50 mg PO BID [facility] Last Admin: 07/27/20 08:11 Dose: 50 mg Documented by: Multivitamins (Thera) 1 each PO DAILY [facility] Last Admin: 07/27/20 08:11 Dose: 1 each Documented by: Ondansetron HCl (Zofran) 4 mg IV Q4H PRN PRN Reason: Nausea/Vomiting Zinc Sulfate (Zincate) 220 mg PO DAILY [facility] Last Admin: 07/27/20 08:12 Dose: 220 mg Documented by: Discontinued Medications Acetaminophen (Tylenol) 975 mg PO ONETIME ONE Stop: 07/18/20 16:19 Last Admin: 07/18/20 16:33 Dose: 975 mg Documented by: Dexamethasone (Decadron) 6 mg IVPUSH ONETIME ONE Stop: 07/18/20 16:11 Last Admin: 07/18/20 16:32 Dose: 6 mg Documented by: Dexamethasone (Dexamethasone) 6 mg PO DAILY [facility] Stop: 07/27/20 09:01 Last Admin: 07/27/20 08:10 Dose: 6 mg Documented by: Enoxaparin Sodium (Lovenox) 40 mg SUBCUT DAILY [facility] Last Admin: 07/22/20 09:34 Dose: 40 mg Documented by: Hydralazine HCl (Apresoline) 10 mg IVPUSH ONETIME ONE Stop: 07/21/20 17:21 Last Admin: 07/21/20 17:24 Dose: 10 mg Documented by: Hydralazine HCl (Apresoline) Confirm Administered Dose 20 mg .ROUTE .STK-MED ONE Stop: 07/21/20 17:23 Last Admin: 07/21/20 17:46 Dose: Not Given Documented by: Dextrose/Lactated Ringer's (Dextrose 5%-Lactated Ringers) 1,000 mls @ 150 mls/hr IV ASDIRECTED [facility] Last Admin: 07/18/20 15:02 Dose: 150 mls/hr Documented by: Remdesivir 200 mg/ Sodium (Chloride) 250 mls @ 250 mls/hr IV ONETIME ONE Stop: 07/18/20 17:12 Last Admin: 07/18/20 17:43 Dose: 250 mls/hr Documented by: Remdesivir 100 mg/ Sodium (Chloride) 100 mls @ 100 mls/hr IV Q24H [facility] Stop: 07/22/20 18:14 Last Admin: 07/22/20 17:03 Dose: 100 mls/hr Documented by: Ibuprofen (Motrin) 600 mg PO ONETIME ONE Stop: 07/18/20 14:31 Last Admin: 07/18/20 15:03 Dose: 600 mg Documented by: Sodium Phosphate (Neutra-Phos) 250 mg PO BID [facility] Stop: 07/19/20 21:01 Last Admin: 07/19/20 20:28 Dose: 250 mg Documented by: - Exam Quality Assessment: Supplemental Oxygen (High flow 30/40), DVT Prophylaxis General: Alert, Oriented, Cooperative, No Acute Distress HEENT: Pupils Equal, Pupils Reactive, Mucous Membr. Moist/Arma Neck: Supple, Trachea Midline Lungs: Normal Respiratory Effort, Decreased Breath Sounds. No: Crackles, Rhonchi, Wheezing Cardiovascular: Regular Rate, Regular Rhythm GI/Abdominal Exam: Normal Bowel Sounds, Soft, Non-Tender, No Distention (Male) Exam: Deferred Back Exam: Normal Inspection, Full Range of Motion Extremities: Normal Inspection, Normal Range of Motion, Non-Tender, No Pedal Edema, Normal Capillary Refill Skin: Warm, Dry, Intact Neurological: No New Focal Deficit Psy/Mental Status: Alert, Normal Affect, Normal Mood Sepsis Event Note - Evaluation Sepsis Screening Result: No Definite Risk - Focused Exam Vital Signs: Vital Signs Temp Pulse Resp BP Pulse Ox Pulse Ox 07/27/20 10:00 89 L 07/27/20 08:11 75 125/66 07/27/20 06:22 97.3 F 75 18 125/66 90 L 07/27/20 04:13 93 L 07/26/20 23:46 95 - Problem List & Annotations (1) COVID-19 determined by clinical diagnostic criteria SNOMED Code(s): 668929696, 199830006 Code(s): U07.1 - COVID-19 Status: Acute Priority: High Current Visit: Y es (2) Hypertension SNOMED Code(s): 96746529 Code(s): I10 - ESSENTIAL (PRIMARY) HYPERTENSION Status: Acute Priority: High Current Visit: Yes Qualifiers: Hypertension type: unspecified Qualified Code(s): I10 - Essential (primary) hypertension (3) Pneumonia due to COVID-19 virus SNOMED Code(s): 613012927299809456 Code(s): U07.1 - COVID-19; J12.89 - OTHER VIRAL PNEUMONIA Status: Acute Priority: High Current Visit: Yes (4) Hypoxia SNOMED Code(s): 592664504 Code(s): R09.02 - HYPOXEMIA Status: Acute Priority: High Current Visit: Yes (5) Hypophosphatemia SNOMED Code(s): 2029113 Code(s): E83.39 - OTHER DISORDERS OF PHOSPHORUS METABOLISM Status: Resolved Priority: High Current Visit: Yes - Problem List Review Problem List Initiated/Reviewed/Updated: Yes - Assessment Assessment:: Assessment - Day of admission - 07/18/2020 COVID-19 infection with pneumonia and hypoxemia * Initial symptoms started on July 07 with positive diagnosis on the . * Initial symptoms included fever, chills, nonproductive cough, sore throat, myalgias. * Recurrence of fever over the last couple days as high as 104 in the emergency department today. * Increasing weakness and fatigue likely secondary to poor oral intake and hypoxemia. * Started on dexamethasone and remdesivir in the emergency department while awaiting admission. Hypertension * On metoprolol 50 mg twice daily at home * Blood pressure on admission was 155/64 * No history of heart disease, congestive heart failure, or lung disease. * Stopped smoking in 1999. 07/19/2020 COVID-19 infection with pneumonia and hypoxemia * Ambulating around room * Continues to utilize acapella and IS * On 5L O2 * Dry cough with pleuritic chest pain when coughing * Denies GI symptoms * WBC 6.16 * D-Dimer 1.18 * Creatinine 1.1 with GFR >60 * CRP 25.5 * Remdesivir - day 2 * Dexamethasone - day 2 Hypertension * Continue metoprolol 50 mg twice daily at home * Blood pressure on admission was 155/64; Today 157/67 * No history of heart disease, congestive heart failure, or lung disease. * Stopped smoking in 1999 * Monitor Hypophosphatemia * Phosphorous 1.5 * Supplemented 07/20/2020 COVID-19 infection with pneumonia and hypoxemia * Ambulating around room * States he feels better and is working with PT/OT * Afebrile, VSS * Continues to utilize acapella and IS * On 4L O2 (improved from 5L) * Dry cough with pleuritic chest pain when coughing * Denies GI symptoms * WBC 6.36-->6.16-->13.28 (Steroid ?) * D-Dimer 1.38-->1.18-->1.20 * Creatinine 1.1 with GFR >60 * CRP 24.2-->25.5-->14.1 * Remdesivir - day 3 * Dexamethasone - day 3 Hypertension, stable * Continue metoprolol 50 mg twice daily at home * Blood pressure on admission was 155/64; Today 149/68 * No history of heart disease, congestive heart failure, or lung disease. * Stopped smoking in 1999 * Monitor Hypophosphatemia, Resolved * Phosphorous 1.5-->3.6 July 21, 2020 COVID-19 infection with pneumonia and hypoxemia Hypoalbuminemia * Ambulating around room * Continues to feel better and is working with PT/OT * Afebrile, VSS * Continues to utilize acapella and IS * On 3L O2 (improved from 5L) * Dry cough with pleuritic chest pain when coughing * Denies GI symptoms * WBC 6.36-->6.16-->13.28 --> 11.1 * D-Dimer 1.38-->1.18-->1.20--> 1.44 * Creatinine 1.0 with GFR >60 * CRP 24.2-->25.5-->14.1--> 6.4 * Albumin 2.4 * Remdesivir - day 11/19 * Dexamethasone - day 11/19 Hypertension, stable * Continue metoprolol 50 mg twice daily at home * Blood pressure on admission was 155/64; Today 149/68 * No history of heart disease, congestive heart failure, or lung disease. * Stopped smoking in 1999 * Monitor Hypophosphatemia, Resolved July 22, 2020 COVID-19 infection with pneumonia and hypoxemia Hypoalbuminemia * Ambulating around room * Continues to feel better and is working with PT/OT * Afebrile, VSS * Continues to utilize acapella and IS * Deteriorated today and is now on 6 L O2 * Dry cough with pleuritic chest pain when coughing * Denies GI symptoms * WBC 6.36-->6.16-->13.28 --> 11.1-->11.7 * D-Dimer 1.38-->1.18-->1.20--> 1.44-->2.3 * Creatinine 1.0 with GFR >60 * CRP 24.2-->25.5-->14.1--> 6.4-->4.0 * Albumin 2.4. * 25 hydroxy vitamin D 62 * Remdesivir - day 12/19 * Dexamethasone - day 12/19 Hypertension, deteriorated * Continue metoprolol 50 mg twice daily at home * Started on chlorthalidone 25 mg this morning * Blood pressure on admission was 155/64; Today 149/68 * No history of heart disease, congestive heart failure, or lung disease. * Stopped smoking in 1999 * Monitor Elevated liver enzymes * Possibly secondary to remdesivir * AST 97, ALT 221, alkaline phosphatase 36 * Hypophosphatemia, Resolved July 23, 2020 COVID-19 infection with pneumonia and hypoxemia Hypoalbuminemia * Continues to ambulate around room and utilize IS/Acapella * Remains stable on 6L O2 * Denies GI symptoms * WBC 6.36-->6.16-->13.28 --> 11.1-->11.7-->10.15 * D-Dimer 1.38-->1.18-->1.20--> 1.44-->2.3-->3.44 * Creatinine 1.0 with GFR >60-->0.9/>60 * CRP 24.2-->25.5-->14.1--> 6.4-->4.0-->4.5 * Albumin 2.4-->2.5 * 25 hydroxy vitamin D 62 * Completed Remdesivir - day 12/19 * Dexamethasone - day 01/23 Hypertension, deteriorated * Continue metoprolol 50 mg twice daily at home * Started on chlorthalidone 25 mg * Blood pressure on admission was 155/64; Today 120/52 * No history of heart disease, congestive heart failure, or lung disease. * Stopped smoking in 1999 * Monitor Elevated liver enzymes, improved * Possibly secondary to remdesivir * AST 97, ALT 221, alkaline phosphatase 36--> AST 41, ALT 161, Alk Phos 41 Hypophosphatemia, Resolved July 24, 2020 COVID-19 infection with pneumonia and hypoxemia Hypoalbuminemia * Continues to ambulate around room and utilize IS/Acapella * Remains stable on 6L O2 * Denies GI symptoms * WBC 6.36-->6.16-->13.28 --> 11.1-->11.7-->10.15-->9.77 * D-Dimer 1.38-->1.18-->1.20--> 1.44-->2.3-->3.44-->2.30 * Creatinine 1.0 with GFR >60-->0.9/>60-->1.0/>60 * CRP 24.2-->25.5-->14.1--> 6.4-->4.0-->4.5-->3.8 * Albumin 2.4-->2.5-->2.7 * 25 hydroxy vitamin D 62 * Completed Remdesivir * Dexamethasone - day 02/22 Hypertension, deteriorated * Continue metoprolol 50 mg twice daily at home * Started on chlorthalidone 25 mg * Blood pressure on admission was 155/64; Today 136/62 * No history of heart disease, congestive heart failure, or lung disease. * Stopped smoking in 1999 * Monitor Elevated liver enzymes, continues to improve * Possibly secondary to remdesivir * AST 97, ALT 221, alkaline phosphatase 36--> AST 41, ALT 161, Alk Phos 41--> AST 31, ALT 133, Alk Phos 41 Hypophosphatemia, Resolved July 25, 2020 COVID-19 infection with pneumonia and hypoxemia Hypoalbuminemia * Continues to ambulate around room and utilize IS/Acapella * Remains stable on 6L O2 * Denies GI symptoms * WBC 6.36-->6.16-->13.28 --> 11.1-->11.7-->10.15-->9.77-->10.34 * D-Dimer 1.38-->1.18-->1.20--> 1.44-->2.3-->3.44-->2.30-->2.10 * Creatinine 1.0 with GFR >60-->0.9/>60-->1.0/>60 * CRP 24.2-->25.5-->14.1--> 6.4-->4.0-->4.5-->3.8-->2.7 * Albumin 2.4-->2.5-->2.7-->2.6 * 25 hydroxy vitamin D 62 * Completed Remdesivir * Dexamethasone - day 03/25 Hypertension, deteriorated * Continue metoprolol 50 mg twice daily at home * Started on chlorthalidone 25 mg * Blood pressure on admission was 155/64; Today 118/56 * No history of heart disease, congestive heart failure, or lung disease. * Stopped smoking in 1999 * Monitor Elevated liver enzymes, continues to improve * Possibly secondary to remdesivir * AST 97-->41-->31-->26 * ALT 221-->161-->133-->115 * alkaline phosphatase 36-->41-->41-->38 July 26, 2020 COVID-19 infection with pneumonia and hypoxemia Hypoalbuminemia * Continues to ambulate around room and utilize IS/Acapella * Currently on high flow O2 at 30liters and 40% * Denies GI symptoms * WBC 11.95, D-dimer 3.37, CRP 1.7, albumin 2.7. * 25 hydroxy vitamin D 62 * Completed Remdesivir * Dexamethasone - day 04/25 * Chest xray shows stable coarse bilateral peripheral interstitial infiltrates. Hypertension, deteriorated * Continue metoprolol 50 mg twice daily at home * Started on chlorthalidone 25 mg * Blood pressures have been stable. * No history of heart disease, congestive heart failure, or lung disease. * Stopped smoking in 1999 * Monitor Elevated liver enzymes, continues to improve * Possibly secondary to remdesivir * AST 23, ALT 100, alk phos 37 July 27, 2020 COVID-19 infection with pneumonia and hypoxemia Hypoalbuminemia * Continues to ambulate around room and utilize IS/Acapella * Currently on high flow O2 at 30 liters and 40% * Denies GI symptoms * WBC 12.50, D-dimer 1.37, CRP 0.9, albumin 2.7. * 25 hydroxy vitamin D 62 * Completed Remdesivir * Completed Dexamethasone Hypertension, stable * Continue metoprolol 50 mg twice daily at home * Started on chlorthalidone 25 mg * Blood pressures have been stable. * No history of heart disease, congestive heart failure, or lung disease. * Stopped smoking in 1999 * Monitor Elevated liver enzymes, resolved - Plan Plan:: Plan * Continue current management * Completed remdesivir * Completed dexamethasone * Continue Lovenox 40 mg twice daily * Encourage proning * Continue I-S and flutter valve * FiO2 to keep SPO2 88% to 94% * Dietary consult, encourage protein intake and good nutrition. * Patient takes vitamin D and zinc at home and will continue the above. * Continue metoprolol 50 mg twice daily * Continue High Flow O2 and attempt to wean * Daily labs as ordered * VTE prophylaxis with Lovenox * CODE STATUS: Full code Length of stay greater than 96 hours secondary to treatment for Covid. Continued need for high flow oxygen
[2020-07-27] MEDS: Losartan 25 MG Tab PO SCH (20:29)
--- NOTE | 2020-07-28 08:24 | PCM.PN ---
<Sohan Montoya - Last Filed: 07/28/20 12:21> - General Info Date of Service: 07/28/20 Admission Dx/Problem (Free Text): Admission Diagnosis/Problem Admission Diagnosis/Problem Hypoxia Subjective Update: In to see Jorge. He continues to improve and is on 4L via NC. He continues to ambulate around the room and utilize his IS and acapella. No labs were obtained today. RT is working on weaning his oxygen as tolerated. He has completed COVID-19 treatment. Will be ready for discharge once able to tolerate oxygen in 2-3L range. Functional Status: Reports: Pain Controlled, Tolerating Diet, Ambulating, Urinating, Incentive Spirometry, Other (acapella ). Denies: New Symptoms - Review of Systems General: Reports: No Symptoms. Denies: Fever, Weakness, Fatigue, Malaise, Chills HEENT: Reports: No Symptoms. Denies: Headaches, Sore Throat Pulmonary: Reports: Shortness of Breath. Denies: Pleuritic Chest Pain, Cough, Sputum, Wheezing Cardiovascular: Reports: No Symptoms, Dyspnea on Exertion. Denies: Chest Pain, Palpitations, Edema Gastrointestinal: Reports: No Symptoms. Denies: Abdominal Pain, Constipation, Diarrhea, Nausea, Vomiting Genitourinary: Reports: No Symptoms. Denies: Pain Musculoskeletal: Reports: No Symptoms Skin: Reports: No Symptoms. Denies: Cyanosis Neurological: Reports: No Symptoms. Denies: Confusion, Difficulty Walking, Gait Disturbance Psychiatric: Reports: No Symptoms - Patient Data Vitals - Most Recent: Last Vital Signs Temp 97.7 F 07/28/20 05:34 Pulse 64 07/28/20 05:34 Resp 18 07/28/20 05:34 BP 110/70 07/28/20 05:34 Pulse Ox 92 L 07/28/20 05:34 Weight - Most Recent: 86.183 kg I&O - Last 24 Hours: Intake & Output 07/27/20 07/28/20 07/28/20 22:59 06:59 14:59 Intake Total 540 400 Output Total 1077 3180 Balance -535 -5980 Med Orders - Current: Current Medications Acetaminophen (Tylenol) 650 mg PO Q4H PRN PRN Reason: Pain (Mild 1-3)/fever Ascorbic Acid (Vitamin C) 1,000 mg PO BID [facility] Last Admin: 07/27/20 20:30 Dose: 1,000 mg Documented by: Chlorthalidone (Chlorthalidone) 25 mg PO DAILY [facility] Last Admin: 07/27/20 08:12 Dose: 25 mg Documented by: Cholecalciferol (Vitamin D3) 25 mcg PO BID [facility] Last Admin: 07/27/20 20:29 Dose: 25 mcg Documented by: Enoxaparin Sodium (Lovenox) 40 mg SUBCUT Q12H [facility] Last Admin: 07/27/20 20:28 Dose: 40 mg Documented by: Hydralazine HCl (Apresoline) 10 mg IVPUSH Q4H PRN PRN Reason: Hypertension Last Admin: 07/22/20 21:19 Dose: 10 mg Documented by: Losartan Potassium (Cozaar) 50 mg PO BEDTIME [facility] Last Admin: 07/27/20 20:29 Dose: 50 mg Documented by: Metoprolol Tartrate (Lopressor) 50 mg PO BID [facility] Last Admin: 07/27/20 20:29 Dose: 50 mg Documented by: Multivitamins (Thera) 1 each PO DAILY [facility] Last Admin: 07/27/20 08:11 Dose: 1 each Documented by: Ondansetron HCl (Zofran) 4 mg IV Q4H PRN PRN Reason: Nausea/Vomiting Zinc Sulfate (Zincate) 220 mg PO DAILY [facility] Last Admin: 07/27/20 08:12 Dose: 220 mg Documented by: Discontinued Medications Acetaminophen (Tylenol) 975 mg PO ONETIME ONE Stop: 07/18/20 16:19 Last Admin: 07/18/20 16:33 Dose: 975 mg Documented by: Dexamethasone (Decadron) 6 mg IVPUSH ONETIME ONE Stop: 07/18/20 16:11 Last Admin: 07/18/20 16:32 Dose: 6 mg Documented by: Dexamethasone (Dexamethasone) 6 mg PO DAILY [facility] Stop: 07/27/20 09:01 Last Admin: 07/27/20 08:10 Dose: 6 mg Documented by: Enoxaparin Sodium (Lovenox) 40 mg SUBCUT DAILY [facility] Last Admin: 07/22/20 09:34 Dose: 40 mg Documented by: Hydralazine HCl (Apresoline) 10 mg IVPUSH ONETIME ONE Stop: 07/21/20 17:21 Last Admin: 07/21/20 17:24 Dose: 10 mg Documented by: Hydralazine HCl (Apresoline) Confirm Administered Dose 20 mg .ROUTE .STK-MED ONE Stop: 07/21/20 17:23 Last Admin: 07/21/20 17:46 Dose: Not Given Documented by: Dextrose/Lactated Ringer's (Dextrose 5%-Lactated Ringers) 1,000 mls @ 150 mls/hr IV ASDIRECTED [facility] Last Admin: 07/18/20 15:02 Dose: 150 mls/hr Documented by: Remdesivir 200 mg/ Sodium (Chloride) 250 mls @ 250 mls/hr IV ONETIME ONE Stop: 07/18/20 17:12 Last Admin: 07/18/20 17:43 Dose: 250 mls/hr Documented by: Remdesivir 100 mg/ Sodium (Chloride) 100 mls @ 100 mls/hr IV Q24H [facility] Stop: 07/22/20 18:14 Last Admin: 07/22/20 17:03 Dose: 100 mls/hr Documented by: Ibuprofen (Motrin) 600 mg PO ONETIME ONE Stop: 07/18/20 14:31 Last Admin: 07/18/20 15:03 Dose: 600 mg Documented by: Sodium Phosphate (Neutra-Phos) 250 mg PO BID [facility] Stop: 07/19/20 21:01 Last Admin: 07/19/20 20:28 Dose: 250 mg Documented by: - Exam Quality Assessment: Supplemental Oxygen (4L), DVT Prophylaxis. No: Urine Catheter General: Alert, Oriented, Cooperative, No Acute Distress HEENT: Pupils Equal, Pupils Reactive, Mucous Membr. Moist/[place] Lungs: Normal Respiratory Effort, Decreased Breath Sounds (very much improved ). No: Crackles, Rhonchi, Wheezing Cardiovascular: Regular Rate, Regular Rhythm GI/Abdominal Exam: Normal Bowel Sounds, Soft, Non-Tender, No Distention (Male) Exam: Deferred Back Exam: Normal Inspection, Full Range of Motion Extremities: Normal Inspection, Normal Range of Motion, Non-Tender, No Pedal Edema, Normal Capillary Refill Skin: Warm, Dry, Intact Neurological: No New Focal Deficit Psy/Mental Status: Alert, Normal Affect, Normal Mood Sepsis Event Note - Evaluation Sepsis Screening Result: No Definite Risk - Focused Exam Vital Signs: Vital Signs Temp Pulse Resp BP Pulse Ox 07/28/20 05:34 97.7 F 64 18 110/70 92 L 07/28/20 00:38 97.5 F 70 20 128/63 94 L 07/27/20 20:29 70 141/62 H 07/27/20 20:27 97.3 F 70 20 141/62 H 95 - Problem List & Annotations (1) COVID-19 determined by clinical diagnostic criteria SNOMED Code(s): 359034829, 586259870 Code(s): U07.1 - COVID-19 Status: Acute Priority: High Current Visit: Yes (2) Hypertension SNOMED Code(s): 55566043 Code(s): I10 - ESSENTIAL (PRIMARY) HYPERTENSION Status: Acute Priority: High Current Visit: Yes Qualifiers: Hypertension type: unspecified Qualified Code(s): I10 - Essential (primary) hypertension (3) Pneumonia due to COVID-19 virus SNOMED Code(s): 420624553739852634 Code(s): U07.1 - COVID-19; J12.89 - OTHER VIRAL PNEUMONIA Status: Acute Priority: High Current Visit: Yes (4) Hypoxia SNOMED Code(s): 868066605 Code(s): R09.02 - HYPOXEMIA Status: Acute Priority: High Current Visit: Yes (5) Hypophosphatemia SNOMED Code(s): 8359382 Code(s): E83.39 - OTHER DISORDERS OF PHOSPHORUS METABOLISM Status: Resolved Priority: High Current Visit: Yes - Problem List Review Problem List Initiated/Reviewed/Updated: Yes - Assessment Assessment:: Assessment - Day of admission - 07/18/2020 COVID-19 infection with pneumonia and hypoxemia * Initial symptoms started on July 07 with positive diagnosis on the . * Initial symptoms included fever, chills, nonproductive cough, sore throat, myalgias. * Recurrence of fever over the last couple days as high as 104 in the emergency department today. * Increasing weakness and fatigue likely secondary to poor oral intake and hypoxemia. * Started on dexamethasone and remdesivir in the emergency department while awaiting admission. Hypertension * On metoprolol 50 mg twice daily at home * Blood pressure on admission was 155/64 * No history of heart disease, congestive heart failure, or lung disease. * Stopped smoking in 1999. 07/19/2020 COVID-19 infection with pneumonia and hypoxemia * Ambulating around room * Continues to utilize acapella and IS * On 5L O2 * Dry cough with pleuritic chest pain when coughing * Denies GI symptoms * WBC 6.16 * D-Dimer 1.18 * Creatinine 1.1 with GFR >60 * CRP 25.5 * Remdesivir - day 2/5 * Dexamethasone - day 2/5 Hypertension * Continue metoprolol 50 mg twice daily at home * Blood pressure on admission was 155/64; Today 157/67 * No history of heart disease, congestive heart failure, or lung disease. * Stopped smoking in 1999 * Monitor Hypophosphatemia * Phosphorous 1.5 * Supplemented 07/20/2020 COVID-19 infection with pneumonia and hypoxemia * Ambulating around room * States he feels better and is working with PT/OT * Afebrile, VSS * Continues to utilize acapella and IS * On 4L O2 (improved from 5L) * Dry cough with pleuritic chest pain when coughing * Denies GI symptoms * WBC 6.36-->6.16-->13.28 (Steroid ?) * D-Dimer 1.38-->1.18-->1.20 * Creatinine 1.1 with GFR >60 * CRP 24.2-->25.5-->14.1 * Remdesivir - day / * Dexamethasone - day 3/ Hypertension, stable * Continue metoprolol 50 mg twice daily at home * Blood pressure on admission was 155/64; Today 149/68 * No history of heart disease, congestive heart failure, or lung disease. * Stopped smoking in 1999 * Monitor Hypophosphatemia, Resolved * Phosphorous 1.5-->3.6 July 21, 2020 COVID-19 infection with pneumonia and hypoxemia Hypoalbuminemia * Ambulating around room * Continues to feel better and is working with PT/OT * Afebrile, VSS * Continues to utilize acapella and IS * On 3L O2 (improved from 5L) * Dry cough with pleuritic chest pain when coughing * Denies GI symptoms * WBC 6.36-->6.16-->13.28 --> 11.1 * D-Dimer 1.38-->1.18-->1.20--> 1.44 * Creatinine 1.0 with GFR >60 * CRP 24.2-->25.5-->14.1--> 6.4 * Albumin 2.4 * Remdesivir - day 11/19 * Dexamethasone - day 11/19 Hypertension, stable * Continue metoprolol 50 mg twice daily at home * Blood pressure on admission was 155/64; Today 149/68 * No history of heart disease, congestive heart failure, or lung disease. * Stopped smoking in 1999 * Monitor Hypophosphatemia, Resolved July 22, 2020 COVID-19 infection with pneumonia and hypoxemia Hypoalbuminemia * Ambulating around room * Continues to feel better and is working with PT/OT * Afebrile, VSS * Continues to utilize acapella and IS * Deteriorated today and is now on 6 L O2 * Dry cough with pleuritic chest pain when coughing * Denies GI symptoms * WBC 6.36-->6.16-->13.28 --> 11.1-->11.7 * D-Dimer 1.38-->1.18-->1.20--> 1.44-->2.3 * Creatinine 1.0 with GFR >60 * CRP 24.2-->25.5-->14.1--> 6.4-->4.0 * Albumin 2.4. * 25 hydroxy vitamin D 62 * Remdesivir - day 12/19 * Dexamethasone - day 12/19 Hypertension, deteriorated * Continue metoprolol 50 mg twice daily at home * Started on chlorthalidone 25 mg this morning * Blood pressure on admission was 155/64; Today 149/68 * No history of heart disease, congestive heart failure, or lung disease. * Stopped smoking in 1999 * Monitor Elevated liver enzymes * Possibly secondary to remdesivir * AST 97, ALT 221, alkaline phosphatase 36 * Hypophosphatemia, Resolved July 23, 2020 COVID-19 infection with pneumonia and hypoxemia Hypoalbuminemia * Continues to ambulate around room and utilize IS/Acapella * Remains stable on 6L O2 * Denies GI symptoms * WBC 6.36-->6.16-->13.28 --> 11.1-->11.7-->10.15 * D-Dimer 1.38-->1.18-->1.20--> 1.44-->2.3-->3.44 * Creatinine 1.0 with GFR >60-->0.9/>60 * CRP 24.2-->25.5-->14.1--> 6.4-->4.0-->4.5 * Albumin 2.4-->2.5 * 25 hydroxy vitamin D 62 * Completed Remdesivir - day 12/19 * Dexamethasone - day 01/23 Hypertension, deteriorated * Continue metoprolol 50 mg twice daily at home * Started on chlorthalidone 25 mg * Blood pressure on admission was 155/64; Today 120/52 * No history of heart disease, congestive heart failure, or lung disease. * Stopped smoking in 1999 * Monitor Elevated liver enzymes, improved * Possibly secondary to remdesivir * AST 97, ALT 221, alkaline phosphatase 36--> AST 41, ALT 161, Alk Phos 41 Hypophosphatemia, Resolved July 24, 2020 COVID-19 infection with pneumonia and hypoxemia Hypoalbuminemia * Continues to ambulate around room and utilize IS/Acapella * Remains stable on 6L O2 * Denies GI symptoms * WBC 6.36-->6.16-->13.28 --> 11.1-->11.7-->10.15-->9.77 * D-Dimer 1.38-->1.18-->1.20--> 1.44-->2.3-->3.44-->2.30 * Creatinine 1.0 with GFR >60-->0.9/>60-->1.0/>60 * CRP 24.2-->25.5-->14.1--> 6.4-->4.0-->4.5-->3.8 * Albumin 2.4-->2.5-->2.7 * 25 hydroxy vitamin D 62 * Completed Remdesivir * Dexamethasone - day 02/22 Hypertension, deteriorated * Continue metoprolol 50 mg twice daily at home * Started on chlorthalidone 25 mg * Blood pressure on admission was 155/64; Today 136/62 * No history of heart disease, congestive heart failure, or lung disease. * Stopped smoking in 1999 * Monitor Elevated liver enzymes, continues to improve * Possibly secondary to remdesivir * AST 97, ALT 221, alkaline phosphatase 36--> AST 41, ALT 161, Alk Phos 41--> AST 31, ALT 133, Alk Phos 41 Hypophosphatemia, Resolved July 25, 2020 COVID-19 infection with pneumonia and hypoxemia Hypoalbuminemia * Continues to ambulate around room and utilize IS/Acapella * Remains stable on 6L O2 * Denies GI symptoms * WBC 6.36-->6.16-->13.28 --> 11.1-->11.7-->10.15-->9.77-->10.34 * D-Dimer 1.38-->1.18-->1.20--> 1.44-->2.3-->3.44-->2.30-->2.10 * Creatinine 1.0 with GFR >60-->0.9/>60-->1.0/>60 * CRP 24.2-->25.5-->14.1--> 6.4-->4.0-->4.5-->3.8-->2.7 * Albumin 2.4-->2.5-->2.7-->2.6 * 25 hydroxy vitamin D 62 * Completed Remdesivir * Dexamethasone - day 03/25 Hypertension, deteriorated * Continue metoprolol 50 mg twice daily at home * Started on chlorthalidone 25 mg * Blood pressure on admission was 155/64; Today 118/56 * No history of heart disease, congestive heart failure, or lung disease. * Stopped smoking in 1999 * Monitor Elevated liver enzymes, continues to improve * Possibly secondary to remdesivir * AST 97-->41-->31-->26 * ALT 221-->161-->133-->115 * alkaline phosphatase 36-->41-->41-->38 July 26, 2020 COVID-19 infection with pneumonia and hypoxemia Hypoalbuminemia * Continues to ambulate around room and utilize IS/Acapella * Currently on high flow O2 at 30liters and 40% * Denies GI symptoms * WBC 11.95, D-dimer 3.37, CRP 1.7, albumin 2.7. * 25 hydroxy vitamin D 62 * Completed Remdesivir * Dexamethasone - day 04/25 * Chest xray shows stable coarse bilateral peripheral interstitial infiltrates. Hypertension, deteriorated * Continue metoprolol 50 mg twice daily at home * Started on chlorthalidone 25 mg * Blood pressures have been stable. * No history of heart disease, congestive heart failure, or lung disease. * Stopped smoking in 1999 * Monitor Elevated liver enzymes, continues to improve * Possibly secondary to remdesivir * AST 23, ALT 100, alk phos 37 July 27, 2020 COVID-19 infection with pneumonia and hypoxemia Hypoalbuminemia * Continues to ambulate around room and utilize IS/Acapella * Currently on high flow O2 at 30 liters and 40% * Denies GI symptoms * WBC 12.50, D-dimer 1.37, CRP 0.9, albumin 2.7. * 25 hydroxy vitamin D 62 * Completed Remdesivir * Completed Dexamethasone Hypertension, stable * Continue metoprolol 50 mg twice daily at home * Started on chlorthalidone 25 mg * Blood pressures have been stable. * No history of heart disease, congestive heart failure, or lung disease. * Stopped smoking in 1999 * Monitor Elevated liver enzymes, resolved July 28, 2020 COVID-19 infection with pneumonia and hypoxemia Hypoalbuminemia * Continues to ambulate around room and utilize IS/Acapella * Currently on 4L via NC * Denies GI symptoms * Completed Remdesivir * Completed Dexamethasone Hypertension, stable * Continue metoprolol 50 mg twice daily at home * Started on chlorthalidone 25 mg * Blood pressures have been stable. * No history of heart disease, congestive heart failure, or lung disease. * Stopped smoking in 1999 * Monitor Elevated liver enzymes, resolved - Plan Plan:: Plan * Continue current management * Completed remdesivir * Completed dexamethasone * Continue Lovenox 40 mg twice daily * Encourage proning * Continue I-S and flutter valve * FiO2 to keep SPO2 88% to 94% * Dietary consult, encourage protein intake and good nutrition. * Patient takes vitamin D and zinc at home and will continue the above. * Continue metoprolol 50 mg twice daily * Continue O2 as needed and attempt to wean * Re-check AM labs as ordered * Daily labs as ordered * VTE prophylaxis with Lovenox * CODE STATUS: Full code Length of stay greater than 96 hours secondary to treatment for Covid. Continued need for oxygen <Ozzie Akbar E - Last Filed: 07/28/20 13:16> - Patient Data Vitals - Most Recent: Last Vital Signs Temp 36.4 C 07/28/20 07:47 Pulse 61 07/28/20 09:09 Resp 20 07/28/20 07:47 BP 115/66 07/28/20 09:09 Pulse Ox 95 07/28/20 07:47 I&O - Last 24 Hours: Intake & Output 07/27/20 07/28/20 07/28/20 22:59 06:59 14:59 Intake Total 540 400 240 Output Total 1075 1920 Balance -535 -1520 240 Med Orders - Current: Current Medications Acetaminophen (Tylenol) 650 mg PO Q4H PRN PRN Reason: Pain (Mild 1-3)/fever Ascorbic Acid (Vitamin C) 1,000 mg PO BID [facility] Last Admin: 07/28/20 09:08 Dose: 1,000 mg Documented by: Chlorthalidone (Chlorthalidone) 25 mg PO DAILY [facility] Last Admin: 07/28/20 09:07 Dose: 25 mg Documented by: Cholecalciferol (Vitamin D3) 25 mcg PO BID [facility] Last Admin: 07/28/20 09:08 Dose: 25 mcg Documented by: Enoxaparin Sodium (Lovenox) 40 mg SUBCUT Q12H [facility] Last Admin: 07/28/20 09:09 Dose: 40 mg Documented by: Hydralazine HCl (Apresoline) 10 mg IVPUSH Q4H PRN PRN Reason: Hypertension Last Admin: 07/22/20 21:19 Dose: 10 mg Documented by: Losartan Potassium (Cozaar) 50 mg PO BEDTIME [facility] Last Admin: 07/27/20 20:29 Dose: 50 mg Documented by: Metoprolol Tartrate (Lopressor) 50 mg PO BID [facility] Last Admin: 07/28/20 09:09 Dose: 50 mg Documented by: Multivitamins (Thera) 1 each PO DAILY [facility] Last Admin: 07/28/20 09:09 Dose: 1 each Documented by: Ondansetron HCl (Zofran) 4 mg IV Q4H PRN PRN Reason: Nausea/Vomiting Zinc Sulfate (Zincate) 220 mg PO DAILY [facility] Last Admin: 07/28/20 09:08 Dose: 220 mg Documented by: Discontinued Medications Acetaminophen (Tylenol) 975 mg PO ONETIME ONE Stop: 07/18/20 16:19 Last Admin: 07/18/20 16:33 Dose: 975 mg Documented by: Dexamethasone (Decadron) 6 mg IVPUSH ONETIME ONE Stop: 07/18/20 16:11 Last Admin: 07/18/20 16:32 Dose: 6 mg Documented by: Dexamethasone (Dexamethasone) 6 mg PO DAILY [facility] Stop: 07/27/20 09:01 Last Admin: 07/27/20 08:10 Dose: 6 mg Documented by: Enoxaparin Sodium (Lovenox) 40 mg SUBCUT DAILY [facility] Last Admin: 07/22/20 09:34 Dose: 40 mg Documented by: Hydralazine HCl (Apresoline) 10 mg IVPUSH ONETIME ONE Stop: 07/21/20 17:21 Last Admin: 07/21/20 17:24 Dose: 10 mg Documented by: Hydralazine HCl (Apresoline) Confirm Administered Dose 20 mg .ROUTE .STK-MED ONE Stop: 07/21/20 17:23 Last Admin: 07/21/20 17:46 Dose: Not Given Documented by: Dextrose/Lactated Ringer's (Dextrose 5%-Lactated Ringers) 1,000 mls @ 150 mls/hr IV ASDIRECTED [facility] Last Admin: 07/18/20 15:02 Dose: 150 mls/hr Documented by: Remdesivir 200 mg/ Sodium (Chloride) 250 mls @ 250 mls/hr IV ONETIME ONE Stop: 07/18/20 17:12 Last Admin: 07/18/20 17:43 Dose: 250 mls/hr Documented by: Remdesivir 100 mg/ Sodium (Chloride) 100 mls @ 100 mls/hr IV Q24H [facility] Stop: 07/22/20 18:14 Last Admin: 07/22/20 17:03 Dose: 100 mls/hr Documented by: Ibuprofen (Motrin) 600 mg PO ONETIME ONE Stop: 07/18/20 14:31 Last Admin: 07/18/20 15:03 Dose: 600 mg Documented by: Sodium Phosphate (Neutra-Phos) 250 mg PO BID [facility] Stop: 07/19/20 21:01 Last Admin: 07/19/20 20:28 Dose: 250 mg Documented by: Sepsis Event Note - Focused Exam Vital Signs: Vital Signs Temp Pulse Resp BP Pulse Ox 07/28/20 09:09 61 115/66 07/28/20 07:47 36.4 C 61 20 115/66 95 07/28/20 05:34 36.5 C 64 18 110/70 92 L - Problem List Review Problem List Initiated/Reviewed/Updated: Yes
[2020-07-28] MEDS: Chlorthalidone 25 MG Tab PO SCH (09:07)
[2020-07-28] MEDS: Zinc Sulfate 220 MG Cap PO SCH (09:08)
[2020-07-28] MEDS: Ascorbic Acid 500 MG Tab PO SCH ×2 (09:08→21:11)
[2020-07-28] MEDS: Cholecalciferol (Vitamin D3) 25 MCG Tab PO SCH ×2 (09:08→21:11)
[2020-07-28] MEDS: Enoxaparin 40 MG/0.4 ML Syringe SUBCUT SCH ×2 (09:09→21:13)
[2020-07-28] MEDS: Multivitamins,Therapeutic Tab PO SCH (09:09)
[2020-07-28] MEDS: Metoprolol Tartrate 50 MG Tab PO SCH ×2 (09:09→21:12)
[2020-07-28] MEDS: Losartan 25 MG Tab PO SCH (21:11)
[2020-07-28] MEDS: Docusate Sodium 100 MG Cap PO SCH (21:11)
[2020-07-29] MEDS: Enoxaparin 40 MG/0.4 ML Syringe SUBCUT SCH ×2 (08:24→21:52)
[2020-07-29] MEDS: Cholecalciferol (Vitamin D3) 25 MCG Tab PO SCH ×2 (08:25→21:52)
[2020-07-29] MEDS: Zinc Sulfate 220 MG Cap PO SCH (08:25)
[2020-07-29] MEDS: Ascorbic Acid 500 MG Tab PO SCH ×2 (08:25→21:52)
[2020-07-29] MEDS: Multivitamins,Therapeutic Tab PO SCH (08:25)
[2020-07-29] MEDS: Docusate Sodium 100 MG Cap PO SCH ×2 (08:26→21:52)
[2020-07-29] MEDS: Metoprolol Tartrate 50 MG Tab PO SCH ×2 (08:30→21:52)
[2020-07-29] MEDS: Chlorthalidone 25 MG Tab PO SCH (08:31)
--- NOTE | 2020-07-29 09:48 | PCM.PN ---
- General Info Date of Service: 07/29/20 Admission Dx/Problem (Free Text): Admission Diagnosis/Problem Admission Diagnosis/Problem Hypoxia Subjective Update: In to see Jorge. He continues to do well. He is down to 1L of oxygen and RT are working on weaning him further. He cut his lip shaving, but otherwise has no new complaints. States he continues to have a cough. Likely discharge 07/30/2020 pending continued improvement. Functional Status: Reports: Pain Controlled, Tolerating Diet, Ambulating, Urinating, Incentive Spirometry, Other (Acapella ). Denies: New Symptoms - Review of Systems General: Reports: No Symptoms. Denies: Fever, Weakness, Fatigue, Malaise, Chills HEENT: Reports: No Symptoms. Denies: Headaches, Sore Throat Pulmonary: Reports: Shortness of Breath, Cough. Denies: Pleuritic Chest Pain, Sputum, Wheezing Cardiovascular: Reports: No Symptoms, Dyspnea on Exertion. Denies: Chest Pain, Palpitations, Edema Gastrointestinal: Reports: No Symptoms. Denies: Abdominal Pain, Constipation, Diarrhea, Nausea, Vomiting Genitourinary: Reports: No Symptoms. Denies: Pain Musculoskeletal: Reports: No Symptoms Skin: Reports: No Symptoms. Denies: Cyanosis Neurological: Reports: No Symptoms. Denies: Confusion, Pre-Existing Deficit, Difficulty Walking, Gait Disturbance Psychiatric: Reports: No Symptoms - Patient Data Vitals - Most Recent: Last Vital Signs Temp 97.9 F 07/29/20 07:33 Pulse 65 07/29/20 08:30 Resp 18 07/29/20 07:33 BP 92/49 L 07/29/20 08:30 Pulse Ox 91 L 07/29/20 07:33 Weight - Most Recent: 190 lb 11.2 oz I&O - Last 24 Hours: Intake & Output 07/28/20 07/29/20 07/29/20 22:59 06:59 14:59 Intake Total 1380 250 Output Total 350 1000 Balance 1030 -750 Lab Results Last 24 Hours: Laboratory Results - last 24 hr 07/29/20 07/29/20 07/29/20 Range/Units 05:23 05:23 05:23 WBC 8.54 (4.23-9.07) K/mm3 RBC 4.75 (4.63-6.08) M/mm3 Hgb 14.8 (13.7-17.5) gm/dl Hct 44.8 (40.1-51.0) % MCV 94.3 H (79.0-92.2) fl MCH 31.2 (25.7-32.2) pg MCHC 33.0 (32.2-35.5) g/dl RDW Std Deviation 44.9 H (35.1-43.9) fL Plt Count 269 (163-337) K/mm3 MPV 9.8 (9.4-12.3) fl Neut % (Auto) 61.0 (34.0-67.9) % Lymph % (Auto) 21.5 L (21.8-53.1) % Howard % (Auto) 14.1 H (5.3-12.2) % Eos % (Auto) 1.2 (0.8-7.0) Baso % (Auto) 0.1 (0.1-1.2) % Neut # (Auto) 5.21 (1.78-5.38) K/mm3 Lymph # (Auto) 1.84 (1.32-3.57) K/mm3 Howard # (Auto) 1.20 H (0.30-0.82) K/mm3 Eos # (Auto) 0.10 (0.04-0.54) K/mm3 Baso # (Auto) 0.01 (0.01-0.08) K/mm3 Manual Slide Review Abnormal smear D-Dimer, Quantitative 1.17 H (0.19-0.50) mg/L Sodium 134 L (136-145) mEq/L Potassium 4.4 (3.5-5.1) mEq/L Chloride 100 (98-107) mEq/L Carbon Dioxide 27 (21-32) mEq/L Anion Gap 11.4 (5-15) BUN 57 H (7-18) mg/dL Creatinine 1.3 (0.7-1.3) mg/dL Est Cr Clr Drug Dosing 53.81 mL/min Estimated GFR (MDRD) 54 (>60) mL/min BUN/Creatinine Ratio 43.8 H (14-18) Glucose 91 (83-115) mg/dL Calcium 9.3 (8.5-10.1) mg/dL Phosphorus 5.0 H (2.6-4.7) mg/dL Magnesium 2.2 (1.8-2.4) mg/dl Total Bilirubin 0.5 (0.2-1.0) mg/dL AST 32 (15-37) U/L ALT 86 H (16-63) U/L Alkaline Phosphatase 33 L (46-116) U/L C-Reactive Protein 0.9 (<1.0) mg/dL Total Protein 6.8 (6.4-8.2) g/dl Albumin 2.7 L (3.4-5.0) g/dl Globulin 4.1 gm/dL Albumin/Globulin Ratio 0.7 L (1-2) Med Orders - Current: Current Medications Acetaminophen (Tylenol) 650 mg PO Q4H PRN PRN Reason: Pain (Mild 1-3)/fever Ascorbic Acid (Vitamin C) 1,000 mg PO BID [facility] Last Admin: 07/29/20 08:25 Dose: 1,000 mg Documented by: Cholecalciferol (Vitamin D3) 25 mcg PO BID [facility] Last Admin: 07/29/20 08:25 Dose: 25 mcg Documented by: Docusate Sodium (Colace) 100 mg PO BID [facility] Last Admin: 07/29/20 08:26 Dose: 100 mg Documented by: Enoxaparin Sodium (Lovenox) 40 mg SUBCUT Q12H [facility] Last Admin: 07/29/20 08:24 Dose: 40 mg Documented by: Hydralazine HCl (Apresoline) 10 mg IVPUSH Q4H PRN PRN Reason: Hypertension Last Admin: 07/22/20 21:19 Dose: 10 mg Documented by: Losartan Potassium (Cozaar) 50 mg PO BEDTIME [facility] Last Admin: 07/28/20 21:11 Dose: 50 mg Documented by: Metoprolol Tartrate (Lopressor) 50 mg PO BID [facility] Last Admin: 07/29/20 08:30 Dose: Not Given Documented by: Multivitamins (Thera) 1 each PO DAILY [facility] Last Admin: 07/29/20 08:25 Dose: 1 each Documented by: Ondansetron HCl (Zofran) 4 mg IV Q4H PRN PRN Reason: Nausea/Vomiting Zinc Sulfate (Zincate) 220 mg PO DAILY [facility] Last Admin: 07/29/20 08:25 Dose: 220 mg Documented by: Discontinued Medications Acetaminophen (Tylenol) 975 mg PO ONETIME ONE Stop: 07/18/20 16:19 Last Admin: 07/18/20 16:33 Dose: 975 mg Documented by: Chlorthalidone (Chlorthalidone) 25 mg PO DAILY [facility] Last Admin: 07/29/20 08:31 Dose: Not Given Documented by: Dexamethasone (Decadron) 6 mg IVPUSH ONETIME ONE Stop: 07/18/20 16:11 Last Admin: 07/18/20 16:32 Dose: 6 mg Documented by: Dexamethasone (Dexamethasone) 6 mg PO DAILY [facility] Stop: 07/27/20 09:01 Last Admin: 07/27/20 08:10 Dose: 6 mg Documented by: Enoxaparin Sodium (Lovenox) 40 mg SUBCUT DAILY [facility] Last Admin: 07/22/20 09:34 Dose: 40 mg Documented by: Hydralazine HCl (Apresoline) 10 mg IVPUSH ONETIME ONE Stop: 07/21/20 17:21 Last Admin: 07/21/20 17:24 Dose: 10 mg Documented by: Hydralazine HCl (Apresoline) Confirm Administered Dose 20 mg .ROUTE .STK-MED ONE Stop: 07/21/20 17:23 Last Admin: 07/21/20 17:46 Dose: Not Given Documented by: Dextrose/Lactated Ringer's (Dextrose 5%-Lactated Ringers) 1,000 mls @ 150 mls/hr IV ASDIRECTED [facility] Last Admin: 07/18/20 15:02 Dose: 150 mls/hr Documented by: Remdesivir 200 mg/ Sodium (Chloride) 250 mls @ 250 mls/hr IV ONETIME ONE Stop: 07/18/20 17:12 Last Admin: 07/18/20 17:43 Dose: 250 mls/hr Documented by: Remdesivir 100 mg/ Sodium (Chloride) 100 mls @ 100 mls/hr IV Q24H [facility] Stop: 07/22/20 18:14 Last Admin: 07/22/20 17:03 Dose: 100 mls/hr Documented by: Ibuprofen (Motrin) 600 mg PO ONETIME ONE Stop: 07/18/20 14:31 Last Admin: 07/18/20 15:03 Dose: 600 mg Documented by: Sodium Phosphate (Neutra-Phos) 250 mg PO BID [facility] Stop: 07/19/20 21:01 Last Admin: 07/19/20 20:28 Dose: 250 mg Documented by: - Exam Quality Assessment: Supplemental Oxygen (1L), DVT Prophylaxis. No: Urine Catheter General: Alert, Oriented, Cooperative, No Acute Distress HEENT: Pupils Equal, Pupils Reactive, Mucous Membr. Moist/[place] Neck: Supple, Trachea Midline Lungs: Normal Respiratory Effort, Decreased Breath Sounds Cardiovascular: Regular Rate, Regular Rhythm GI/Abdominal Exam: Normal Bowel Sounds, Soft, Non-Tender, No Distention (Male) Exam: Deferred Back Exam: Normal Inspection, Full Range of Motion Extremities: Normal Inspection, Normal Range of Motion, Non-Tender, No Pedal Edema, Normal Capillary Refill Skin: Warm, Dry, Intact Neurological: No New Focal Deficit Psy/Mental Status: Alert, Normal Affect, Normal Mood Sepsis Event Note - Evaluation Sepsis Screening Result: No Definite Risk - Focused Exam Vital Signs: Vital Signs Temp Pulse Resp BP Pulse Ox 07/29/20 08:30 65 92/49 L 07/29/20 07:33 97.9 F 65 18 93/49 L 91 L 07/29/20 05:18 97.7 F 71 18 96/60 92 L 07/29/20 00:24 97.5 F 70 20 110/61 91 L - Problem List & Annotations (1) COVID-19 determined by clinical diagnostic criteria SNOMED Code(s): 197043628, 900396759 Code(s): U07.1 - COVID-19 Status: Acute Priority: High Current Visit: Yes (2) Hypertension SNOMED Code(s): 91989979 Code(s): I10 - ESSENTIAL (PRIMARY) HYPERTENSION Status: Acute Priority: High Current Visit: Yes Qualifiers: Hypertension type: unspecified Qualified Code(s): I10 - Essential (primary) hypertension (3) Pneumonia due to COVID-19 virus SNOMED Code(s): 006786572376422151 Code(s): U07.1 - COVID-19; J12.89 - OTHER VIRAL PNEUMONIA Status: Acute Priority: High Current Visit: Yes (4) Hypoxia SNOMED Code(s): 631035193 Code(s): R09.02 - HYPOXEMIA Status: Acute Priority: High Current Visit: Yes (5) Hypophosphatemia SNOMED Code(s): 3685567 Code(s): E83.39 - OTHER DISORDERS OF PHOSPHORUS METABOLISM Status: Resolved Priority: High Current Visit: Yes - Problem List Review Problem List Initiated/Reviewed/Updated: Yes - Assessment Assessment:: Assessment - Day of admission - 07/18/2020 COVID-19 infection with pneumonia and hypoxemia * Initial symptoms started on July 07 with positive diagnosis on the . * Initial symptoms included fever, chills, nonproductive cough, sore throat, myalgias. * Recurrence of fever over the last couple days as high as 104 in the emergency department today. * Increasing weakness and fatigue likely secondary to poor oral intake and hypoxemia. * Started on dexamethasone and remdesivir in the emergency department while awaiting admission. Hypertension * On metoprolol 50 mg twice daily at home * Blood pressure on admission was 155/64 * No history of heart disease, congestive heart failure, or lung disease. * Stopped smoking in 1999. 07/19/2020 COVID-19 infection with pneumonia and hypoxemia * Ambulating around room * Continues to utilize acapella and IS * On 5L O2 * Dry cough with pleuritic chest pain when coughing * Denies GI symptoms * WBC 6.16 * D-Dimer 1.18 * Creatinine 1.1 with GFR >60 * CRP 25.5 * Remdesivir - day 2 * Dexamethasone - day 09/21 Hypertension * Continue metoprolol 50 mg twice daily at home * Blood pressure on admission was 155/64; Today 157/67 * No history of heart disease, congestive heart failure, or lung disease. * Stopped smoking in 1999 * Monitor Hypophosphatemia * Phosphorous 1.5 * Supplemented 07/20/2020 COVID-19 infection with pneumonia and hypoxemia * Ambulating around room * States he feels better and is working with PT/OT * Afebrile, VSS * Continues to utilize acapella and IS * On 4L O2 (improved from 5L) * Dry cough with pleuritic chest pain when coughing * Denies GI symptoms * WBC 6.36-->6.16-->13.28 (Steroid ?) * D-Dimer 1.38-->1.18-->1.20 * Creatinine 1.1 with GFR >60 * CRP 24.2-->25.5-->14.1 * Remdesivir - day 3 * Dexamethasone - day 3 Hypertension, stable * Continue metoprolol 50 mg twice daily at home * Blood pressure on admission was 155/64; Today 149/68 * No history of heart disease, congestive heart failure, or lung disease. * Stopped smoking in 1999 * Monitor Hypophosphatemia, Resolved * Phosphorous 1.5-->3.6 July 21, 2020 COVID-19 infection with pneumonia and hypoxemia Hypoalbuminemia * Ambulating around room * Continues to feel better and is working with PT/OT * Afebrile, VSS * Continues to utilize acapella and IS * On 3L O2 (improved from 5L) * Dry cough with pleuritic chest pain when coughing * Denies GI symptoms * WBC 6.36-->6.16-->13.28 --> 11.1 * D-Dimer 1.38-->1.18-->1.20--> 1.44 * Creatinine 1.0 with GFR >60 * CRP 24.2-->25.5-->14.1--> 6.4 * Albumin 2.4 * Remdesivir - day 11/19 * Dexamethasone - day 11/19 Hypertension, stable * Continue metoprolol 50 mg twice daily at home * Blood pressure on admission was 155/64; Today 149/68 * No history of heart disease, congestive heart failure, or lung disease. * Stopped smoking in 1999 * Monitor Hypophosphatemia, Resolved July 22, 2020 COVID-19 infection with pneumonia and hypoxemia Hypoalbuminemia * Ambulating around room * Continues to feel better and is working with PT/OT * Afebrile, VSS * Continues to utilize acapella and IS * Deteriorated today and is now on 6 L O2 * Dry cough with pleuritic chest pain when coughing * Denies GI symptoms * WBC 6.36-->6.16-->13.28 --> 11.1-->11.7 * D-Dimer 1.38-->1.18-->1.20--> 1.44-->2.3 * Creatinine 1.0 with GFR >60 * CRP 24.2-->25.5-->14.1--> 6.4-->4.0 * Albumin 2.4. * 25 hydroxy vitamin D 62 * Remdesivir - day 12/19 * Dexamethasone - day 12/19 Hypertension, deteriorated * Continue metoprolol 50 mg twice daily at home * Started on chlorthalidone 25 mg this morning * Blood pressure on admission was 155/64; Today 149/68 * No history of heart disease, congestive heart failure, or lung disease. * Stopped smoking in 1999 * Monitor Elevated liver enzymes * Possibly secondary to remdesivir * AST 97, ALT 221, alkaline phosphatase 36 * Hypophosphatemia, Resolved July 23, 2020 COVID-19 infection with pneumonia and hypoxemia Hypoalbuminemia * Continues to ambulate around room and utilize IS/Acapella * Remains stable on 6L O2 * Denies GI symptoms * WBC 6.36-->6.16-->13.28 --> 11.1-->11.7-->10.15 * D-Dimer 1.38-->1.18-->1.20--> 1.44-->2.3-->3.44 * Creatinine 1.0 with GFR >60-->0.9/>60 * CRP 24.2-->25.5-->14.1--> 6.4-->4.0-->4.5 * Albumin 2.4-->2.5 * 25 hydroxy vitamin D 62 * Completed Remdesivir - day 12/19 * Dexamethasone - day 01/23 Hypertension, deteriorated * Continue metoprolol 50 mg twice daily at home * Started on chlorthalidone 25 mg * Blood pressure on admission was 155/64; Today 120/52 * No history of heart disease, congestive heart failure, or lung disease. * Stopped smoking in 1999 * Monitor Elevated liver enzymes, improved * Possibly secondary to remdesivir * AST 97, ALT 221, alkaline phosphatase 36--> AST 41, ALT 161, Alk Phos 41 Hypophosphatemia, Resolved July 24, 2020 COVID-19 infection with pneumonia and hypoxemia Hypoalbuminemia * Continues to ambulate around room and utilize IS/Acapella * Remains stable on 6L O2 * Denies GI symptoms * WBC 6.36-->6.16-->13.28 --> 11.1-->11.7-->10.15-->9.77 * D-Dimer 1.38-->1.18-->1.20--> 1.44-->2.3-->3.44-->2.30 * Creatinine 1.0 with GFR >60-->0.9/>60-->1.0/>60 * CRP 24.2-->25.5-->14.1--> 6.4-->4.0-->4.5-->3.8 * Albumin 2.4-->2.5-->2.7 * 25 hydroxy vitamin D 62 * Completed Remdesivir * Dexamethasone - day 02/22 Hypertension, deteriorated * Continue metoprolol 50 mg twice daily at home * Started on chlorthalidone 25 mg * Blood pressure on admission was 155/64; Today 136/62 * No history of heart disease, congestive heart failure, or lung disease. * Stopped smoking in 1999 * Monitor Elevated liver enzymes, continues to improve * Possibly secondary to remdesivir * AST 97, ALT 221, alkaline phosphatase 36--> AST 41, ALT 161, Alk Phos 41--> AST 31, ALT 133, Alk Phos 41 Hypophosphatemia, Resolved July 25, 2020 COVID-19 infection with pneumonia and hypoxemia Hypoalbuminemia * Continues to ambulate around room and utilize IS/Acapella * Remains stable on 6L O2 * Denies GI symptoms * WBC 6.36-->6.16-->13.28 --> 11.1-->11.7-->10.15-->9.77-->10.34 * D-Dimer 1.38-->1.18-->1.20--> 1.44-->2.3-->3.44-->2.30-->2.10 * Creatinine 1.0 with GFR >60-->0.9/>60-->1.0/>60 * CRP 24.2-->25.5-->14.1--> 6.4-->4.0-->4.5-->3.8-->2.7 * Albumin 2.4-->2.5-->2.7-->2.6 * 25 hydroxy vitamin D 62 * Completed Remdesivir * Dexamethasone - day 03/25 Hypertension, deteriorated * Continue metoprolol 50 mg twice daily at home * Started on chlorthalidone 25 mg * Blood pressure on admission was 155/64; Today 118/56 * No history of heart disease, congestive heart failure, or lung disease. * Stopped smoking in 1999 * Monitor Elevated liver enzymes, continues to improve * Possibly secondary to remdesivir * AST 97-->41-->31-->26 * ALT 221-->161-->133-->115 * alkaline phosphatase 36-->41-->41-->38 July 26, 2020 COVID-19 infection with pneumonia and hypoxemia Hypoalbuminemia * Continues to ambulate around room and utilize IS/Acapella * Currently on high flow O2 at 30liters and 40% * Denies GI symptoms * WBC 11.95, D-dimer 3.37, CRP 1.7, albumin 2.7. * 25 hydroxy vitamin D 62 * Completed Remdesivir * Dexamethasone - day 04/25 * Chest xray shows stable coarse bilateral peripheral interstitial infiltrates. Hypertension, deteriorated * Continue metoprolol 50 mg twice daily at home * Started on chlorthalidone 25 mg * Blood pressures have been stable. * No history of heart disease, congestive heart failure, or lung disease. * Stopped smoking in 1999 * Monitor Elevated liver enzymes, continues to improve * Possibly secondary to remdesivir * AST 23, ALT 100, alk phos 37 July 27, 2020 COVID-19 infection with pneumonia and hypoxemia Hypoalbuminemia * Continues to ambulate around room and utilize IS/Acapella * Currently on high flow O2 at 30 liters and 40% * Denies GI symptoms * WBC 12.50, D-dimer 1.37, CRP 0.9, albumin 2.7. * 25 hydroxy vitamin D 62 * Completed Remdesivir * Completed Dexamethasone Hypertension, stable * Continue metoprolol 50 mg twice daily at home * Started on chlorthalidone 25 mg * Blood pressures have been stable. * No history of heart disease, congestive heart failure, or lung disease. * Stopped smoking in 1999 * Monitor Elevated liver enzymes, resolved July 28, 2020 COVID-19 infection with pneumonia and hypoxemia Hypoalbuminemia * Continues to ambulate around room and utilize IS/Acapella * Currently on 4L via [place] * Denies GI symptoms * Completed Remdesivir * Completed Dexamethasone Hypertension, stable * Continue metoprolol 50 mg twice daily at home * Started on chlorthalidone 25 mg * Blood pressures have been stable. * No history of heart disease, congestive heart failure, or lung disease. * Stopped smoking in 1999 * Monitor Elevated liver enzymes, resolved July 29, 2020 COVID-19 infection with pneumonia and hypoxemia Hypoalbuminemia * Continues to ambulate around room and utilize IS/Acapella * Currently on 1L via [place] * Denies GI symptoms * Completed Remdesivir * Completed Dexamethasone Hypertension - now hypotensive * Continue metoprolol 50 mg twice daily at home * Discontinue chlorthalidone 25 mg * Blood pressures have been low the last couple of days * No history of heart disease, congestive heart failure, or lung disease. * Stopped smoking in 1999 * Monitor Elevated liver enzymes, resolved Likely discharge tomorrow (07/30/20) pending continued improvement. - Plan Plan:: Plan * Continue current management * Completed remdesivir * Completed dexamethasone * Continue Lovenox 40 mg twice daily * Discontinue chlorthalidone due to lower BPs. * Encourage proning * Continue I-S and flutter valve * FiO2 to keep SPO2 88% to 94% * Dietary consult, encourage protein intake and good nutrition. * Patient takes vitamin D and zinc at home and will continue the above. * Continue metoprolol 50 mg twice daily * Continue O2 as needed and attempt to wean * Re-check AM labs as ordered * Daily labs as ordered * VTE prophylaxis with Lovenox * CODE STATUS: Full code Length of stay greater than 96 hours secondary to treatment for Covid. Continued need for oxygen. Likely discharge 07/30/2020 pending continued improvement.
[2020-07-29] MEDS: Losartan 25 MG Tab PO SCH (21:52)
[2020-07-30] MEDS: Zinc Sulfate 220 MG Cap PO SCH (08:35)
[2020-07-30] MEDS: Metoprolol Tartrate 50 MG Tab PO SCH ×2 (08:35→21:38)
[2020-07-30] MEDS: Ascorbic Acid 500 MG Tab PO SCH ×2 (08:35→21:38)
[2020-07-30] MEDS: Enoxaparin 40 MG/0.4 ML Syringe SUBCUT SCH ×2 (08:35→21:40)
[2020-07-30] MEDS: Cholecalciferol (Vitamin D3) 25 MCG Tab PO SCH ×2 (08:35→21:38)
[2020-07-30] MEDS: Multivitamins,Therapeutic Tab PO SCH (08:35)
[2020-07-30] MEDS: Docusate Sodium 100 MG Cap PO SCH ×2 (08:36→21:38)
--- NOTE | 2020-07-30 12:30 | PCM.PN ---
- General Info Date of Service: 07/30/20 Admission Dx/Problem (Free Text): Admission Diagnosis/Problem Admission Diagnosis/Problem Hypoxia Subjective Update: Patient states he feels well. Denies cough shortness of breath or general malaise. Continues on 1.5 L of oxygen per nasal cannula. We will continue to wean. Functional Status: Reports: Pain Controlled, Tolerating Diet, Ambulating, Incentive Spirometry - Review of Systems General: Reports: No Symptoms HEENT: Reports: No Symptoms Pulmonary: Denies: Shortness of Breath, Pleuritic Chest Pain, Cough, Wheezing Cardiovascular: Reports: No Symptoms Gastrointestinal: Reports: No Symptoms Genitourinary: Reports: No Symptoms Musculoskeletal: Reports: No Symptoms Skin: Reports: No Symptoms Neurological: Reports: No Symptoms Psychiatric: Reports: No Symptoms - Patient Data Vitals - Most Recent: Last Vital Signs Temp 97.9 F 07/30/20 11:44 Pulse 79 07/30/20 11:44 Resp 20 07/30/20 11:44 BP 114/56 L 07/30/20 11:44 Pulse Ox 91 L 07/30/20 11:44 Weight - Most Recent: 192 lb 6.4 oz I&O - Last 24 Hours: Intake & Output 07/29/20 07/30/20 07/30/20 22:59 06:59 14:59 Intake Total 1220 700 0 Output Total 600 1400 Balance 620 -700 0 Med Orders - Current: Current Medications Acetaminophen (Tylenol) 650 mg PO Q4H PRN PRN Reason: Pain (Mild 1-3)/fever Ascorbic Acid (Vitamin C) 1,000 mg PO BID COUNTS INCLUDE 234 BEDS AT THE [facility] Last Admin: 07/30/20 08:35 Dose: 1,000 mg Documented by: Cholecalciferol (Vitamin D3) 25 mcg PO BID COUNTS INCLUDE 234 BEDS AT THE [facility] Last Admin: 07/30/20 08:35 Dose: 25 mcg Documented by: Docusate Sodium (Colace) 100 mg PO BID COUNTS INCLUDE 234 BEDS AT THE [facility] Last Admin: 07/30/20 08:36 Dose: 100 mg Documented by: Enoxaparin Sodium (Lovenox) 40 mg SUBCUT Q12H COUNTS INCLUDE 234 BEDS AT THE [facility] Last Admin: 07/30/20 08:35 Dose: 40 mg Documented by: Hydralazine HCl (Apresoline) 10 mg IVPUSH Q4H PRN PRN Reason: Hypertension Last Admin: 07/22/20 21:19 Dose: 10 mg Documented by: Metoprolol Tartrate (Lopressor) 50 mg PO BID COUNTS INCLUDE 234 BEDS AT THE [facility] Last Admin: 07/30/20 08:35 Dose: 50 mg Documented by: Multivitamins (Thera) 1 each PO DAILY COUNTS INCLUDE 234 BEDS AT THE [facility] Last Admin: 07/30/20 08:35 Dose: 1 each Documented by: Ondansetron HCl (Zofran) 4 mg IV Q4H PRN PRN Reason: Nausea/Vomiting Zinc Sulfate (Zincate) 220 mg PO DAILY COUNTS INCLUDE 234 BEDS AT THE [facility] Last Admin: 07/30/20 08:35 Dose: 220 mg Documented by: Discontinued Medications Acetaminophen (Tylenol) 975 mg PO ONETIME ONE Stop: 07/18/20 16:19 Last Admin: 07/18/20 16:33 Dose: 975 mg Documented by: Chlorthalidone (Chlorthalidone) 25 mg PO DAILY COUNTS INCLUDE 234 BEDS AT THE [facility] Last Admin: 07/29/20 08:31 Dose: Not Given Documented by: Dexamethasone (Decadron) 6 mg IVPUSH ONETIME ONE Stop: 07/18/20 16:11 Last Admin: 07/18/20 16:32 Dose: 6 mg Documented by: Dexamethasone (Dexamethasone) 6 mg PO DAILY COUNTS INCLUDE 234 BEDS AT THE [facility] Stop: 07/27/20 09:01 Last Admin: 07/27/20 08:10 Dose: 6 mg Documented by: Enoxaparin Sodium (Lovenox) 40 mg SUBCUT DAILY COUNTS INCLUDE 234 BEDS AT THE [facility] Last Admin: 07/22/20 09:34 Dose: 40 mg Documented by: Hydralazine HCl (Apresoline) 10 mg IVPUSH ONETIME ONE Stop: 07/21/20 17:21 Last Admin: 07/21/20 17:24 Dose: 10 mg Documented by: Hydralazine HCl (Apresoline) Confirm Administered Dose 20 mg .ROUTE .STK-MED ONE Stop: 07/21/20 17:23 Last Admin: 07/21/20 17:46 Dose: Not Given Documented by: Dextrose/Lactated Ringer's (Dextrose 5%-Lactated Ringers) 1,000 mls @ 150 mls/hr IV ASDIRECTED COUNTS INCLUDE 234 BEDS AT THE [facility] Last Admin: 07/18/20 15:02 Dose: 150 mls/hr Documented by: Remdesivir 200 mg/ Sodium (Chloride) 250 mls @ 250 mls/hr IV ONETIME ONE Stop: 07/18/20 17:12 Last Admin: 07/18/20 17:43 Dose: 250 mls/hr Documented by: Remdesivir 100 mg/ Sodium (Chloride) 100 mls @ 100 mls/hr IV Q24H COUNTS INCLUDE 234 BEDS AT THE [facility] Stop: 07/22/20 18:14 Last Admin: 07/22/20 17:03 Dose: 100 mls/hr Documented by: Ibuprofen (Motrin) 600 mg PO ONETIME ONE Stop: 07/18/20 14:31 Last Admin: 07/18/20 15:03 Dose: 600 mg Documented by: Losartan Potassium (Cozaar) 50 mg PO BEDTIME COUNTS INCLUDE 234 BEDS AT THE [facility] Last Admin: 07/29/20 21:52 Dose: 50 mg Documented by: Sodium Phosphate (Neutra-Phos) 250 mg PO BID OBEY Stop: 07/19/20 21:01 Last Admin: 07/19/20 20:28 Dose: 250 mg Documented by: - Exam Quality Assessment: Supplemental Oxygen (1.5 L per nasal cannula), DVT Prophylaxis (Lovenox) General: Alert, Oriented, Cooperative, No Acute Distress HEENT: Pupils Equal, Pupils Reactive, Mucous Membr. Moist/[place] Neck: Supple, Trachea Midline. No: Lymphadenopathy Lungs: Normal Respiratory Effort, Crackles (Bilaterally posteriorly.) Cardiovascular: Regular Rate, Regular Rhythm, No Murmurs GI/Abdominal Exam: Normal Bowel Sounds, Soft, Non-Tender, No Distention (Male) Exam: Deferred Back Exam: Normal Inspection, Full Range of Motion Extremities: Normal Inspection, Normal Range of Motion, Non-Tender, No Pedal Edema, Normal Capillary Refill Peripheral Pulses: 2+: Radial (L), Radial (R) Skin: Warm, Dry, Intact Neurological: No New Focal Deficit Psy/Mental Status: Alert, Normal Affect, Normal Mood Sepsis Event Note - Evaluation Sepsis Screening Result: No Definite Risk - Focused Exam Vital Signs: Vital Signs Temp Pulse Resp BP Pulse Ox 07/30/20 11:44 97.9 F 79 20 114/56 L 91 L 07/30/20 08:35 79 103/49 L 07/30/20 07:32 97.9 F 79 18 103/49 L 91 L 07/30/20 04:13 80 103/42 L 91 L 07/30/20 04:12 98.1 F 84 16 97/46 L 91 L - Problem List & Annotations (1) COVID-19 determined by clinical diagnostic criteria SNOMED Code(s): 724764356, 465749599 Code(s): U07.1 - COVID-19 Status: Acute Priority: High Current Visit: Yes (2) Hypertension SNOMED Code(s): 18876075 Code(s): I10 - ESSENTIAL (PRIMARY) HYPERTENSION Status: Acute Priority: High Current Visit: Yes Qualifiers: Hypertension type: unspecified Qualified Code(s): I10 - Essential (primary) hypertension (3) Hypophosphatemia SNOMED Code(s): 2499634 Code(s): E83.39 - OTHER DISORDERS OF PHOSPHORUS METABOLISM Status: Resolved Priority: High Current Visit: Yes (4) Hypoxia SNOMED Code(s): 629305941 Code(s): R09.02 - HYPOXEMIA Status: Acute Priority: High Current Visit: Yes (5) Pneumonia due to COVID-19 virus SNOMED Code(s): 605015669776942338 Code(s): U07.1 - COVID-19; J12.89 - OTHER VIRAL PNEUMONIA Status: Acute Priority: High Current Visit: Yes - Problem List Review Problem List Initiated/Reviewed/Updated: Yes - Assessment Assessment:: Assessment - Day of admission - 07/18/2020 COVID-19 infection with pneumonia and hypoxemia * Initial symptoms started on July 07 with positive diagnosis on the . * Initial symptoms included fever, chills, nonproductive cough, sore throat, myalgias. * Recurrence of fever over the last couple days as high as 104 in the emergency department today. * Increasing weakness and fatigue likely secondary to poor oral intake and hypoxemia. * Started on dexamethasone and remdesivir in the emergency department while awaiting admission. Hypertension * On metoprolol 50 mg twice daily at home * Blood pressure on admission was 155/64 * No history of heart disease, congestive heart failure, or lung disease. * Stopped smoking in 1999. 07/19/2020 COVID-19 infection with pneumonia and hypoxemia * Ambulating around room * Continues to utilize acapella and IS * On 5L O2 * Dry cough with pleuritic chest pain when coughing * Denies GI symptoms * WBC 6.16 * D-Dimer 1.18 * Creatinine 1.1 with GFR >60 * CRP 25.5 * Remdesivir - day 09/21 * Dexamethasone - day 2 Hypertension * Continue metoprolol 50 mg twice daily at home * Blood pressure on admission was 155/64; Today 157/67 * No history of heart disease, congestive heart failure, or lung disease. * Stopped smoking in 1999 * Monitor Hypophosphatemia * Phosphorous 1.5 * Supplemented 07/20/2020 COVID-19 infection with pneumonia and hypoxemia * Ambulating around room * States he feels better and is working with PT/OT * Afebrile, VSS * Continues to utilize acapella and IS * On 4L O2 (improved from 5L) * Dry cough with pleuritic chest pain when coughing * Denies GI symptoms * WBC 6.36-->6.16-->13.28 (Steroid ?) * D-Dimer 1.38-->1.18-->1.20 * Creatinine 1.1 with GFR >60 * CRP 24.2-->25.5-->14.1 * Remdesivir - day 3/ * Dexamethasone - day 35 Hypertension, stable * Continue metoprolol 50 mg twice daily at home * Blood pressure on admission was 155/64; Today 149/68 * No history of heart disease, congestive heart failure, or lung disease. * Stopped smoking in 1999 * Monitor Hypophosphatemia, Resolved * Phosphorous 1.5-->3.6 July 21, 2020 COVID-19 infection with pneumonia and hypoxemia Hypoalbuminemia * Ambulating around room * Continues to feel better and is working with PT/OT * Afebrile, VSS * Continues to utilize acapella and IS * On 3L O2 (improved from 5L) * Dry cough with pleuritic chest pain when coughing * Denies GI symptoms * WBC 6.36-->6.16-->13.28 --> 11.1 * D-Dimer 1.38-->1.18-->1.20--> 1.44 * Creatinine 1.0 with GFR >60 * CRP 24.2-->25.5-->14.1--> 6.4 * Albumin 2.4 * Remdesivir - day 4/5 * Dexamethasone - day 4/5 Hypertension, stable * Continue metoprolol 50 mg twice daily at home * Blood pressure on admission was 155/64; Today 149/68 * No history of heart disease, congestive heart failure, or lung disease. * Stopped smoking in 1999 * Monitor Hypophosphatemia, Resolved July 22, 2020 COVID-19 infection with pneumonia and hypoxemia Hypoalbuminemia * Ambulating around room * Continues to feel better and is working with PT/OT * Afebrile, VSS * Continues to utilize acapella and IS * Deteriorated today and is now on 6 L O2 * Dry cough with pleuritic chest pain when coughing * Denies GI symptoms * WBC 6.36-->6.16-->13.28 --> 11.1-->11.7 * D-Dimer 1.38-->1.18-->1.20--> 1.44-->2.3 * Creatinine 1.0 with GFR >60 * CRP 24.2-->25.5-->14.1--> 6.4-->4.0 * Albumin 2.4. * 25 hydroxy vitamin D 62 * Remdesivir - day 12/19 * Dexamethasone - day 12/19 Hypertension, deteriorated * Continue metoprolol 50 mg twice daily at home * Started on chlorthalidone 25 mg this morning * Blood pressure on admission was 155/64; Today 149/68 * No history of heart disease, congestive heart failure, or lung disease. * Stopped smoking in 1999 * Monitor Elevated liver enzymes * Possibly secondary to remdesivir * AST 97, ALT 221, alkaline phosphatase 36 * Hypophosphatemia, Resolved July 23, 2020 COVID-19 infection with pneumonia and hypoxemia Hypoalbuminemia * Continues to ambulate around room and utilize IS/Acapella * Remains stable on 6L O2 * Denies GI symptoms * WBC 6.36-->6.16-->13.28 --> 11.1-->11.7-->10.15 * D-Dimer 1.38-->1.18-->1.20--> 1.44-->2.3-->3.44 * Creatinine 1.0 with GFR >60-->0.9/>60 * CRP 24.2-->25.5-->14.1--> 6.4-->4.0-->4.5 * Albumin 2.4-->2.5 * 25 hydroxy vitamin D 62 * Completed Remdesivir - day 12/19 * Dexamethasone - day 01/23 Hypertension, deteriorated * Continue metoprolol 50 mg twice daily at home * Started on chlorthalidone 25 mg * Blood pressure on admission was 155/64; Today 120/52 * No history of heart disease, congestive heart failure, or lung disease. * Stopped smoking in 1999 * Monitor Elevated liver enzymes, improved * Possibly secondary to remdesivir * AST 97, ALT 221, alkaline phosphatase 36--> AST 41, ALT 161, Alk Phos 41 Hypophosphatemia, Resolved July 24, 2020 COVID-19 infection with pneumonia and hypoxemia Hypoalbuminemia * Continues to ambulate around room and utilize IS/Acapella * Remains stable on 6L O2 * Denies GI symptoms * WBC 6.36-->6.16-->13.28 --> 11.1-->11.7-->10.15-->9.77 * D-Dimer 1.38-->1.18-->1.20--> 1.44-->2.3-->3.44-->2.30 * Creatinine 1.0 with GFR >60-->0.9/>60-->1.0/>60 * CRP 24.2-->25.5-->14.1--> 6.4-->4.0-->4.5-->3.8 * Albumin 2.4-->2.5-->2.7 * 25 hydroxy vitamin D 62 * Completed Remdesivir * Dexamethasone - day 02/22 Hypertension, deteriorated * Continue metoprolol 50 mg twice daily at home * Started on chlorthalidone 25 mg * Blood pressure on admission was 155/64; Today 136/62 * No history of heart disease, congestive heart failure, or lung disease. * Stopped smoking in 1999 * Monitor Elevated liver enzymes, continues to improve * Possibly secondary to remdesivir * AST 97, ALT 221, alkaline phosphatase 36--> AST 41, ALT 161, Alk Phos 41--> AST 31, ALT 133, Alk Phos 41 Hypophosphatemia, Resolved July 25, 2020 COVID-19 infection with pneumonia and hypoxemia Hypoalbuminemia * Continues to ambulate around room and utilize IS/Acapella * Remains stable on 6L O2 * Denies GI symptoms * WBC 6.36-->6.16-->13.28 --> 11.1-->11.7-->10.15-->9.77-->10.34 * D-Dimer 1.38-->1.18-->1.20--> 1.44-->2.3-->3.44-->2.30-->2.10 * Creatinine 1.0 with GFR >60-->0.9/>60-->1.0/>60 * CRP 24.2-->25.5-->14.1--> 6.4-->4.0-->4.5-->3.8-->2.7 * Albumin 2.4-->2.5-->2.7-->2.6 * 25 hydroxy vitamin D 62 * Completed Remdesivir * Dexamethasone - day 03/25 Hypertension, deteriorated * Continue metoprolol 50 mg twice daily at home * Started on chlorthalidone 25 mg * Blood pressure on admission was 155/64; Today 118/56 * No history of heart disease, congestive heart failure, or lung disease. * Stopped smoking in 1999 * Monitor Elevated liver enzymes, continues to improve * Possibly secondary to remdesivir * AST 97-->41-->31-->26 * ALT 221-->161-->133-->115 * alkaline phosphatase 36-->41-->41-->38 July 26, 2020 COVID-19 infection with pneumonia and hypoxemia Hypoalbuminemia * Continues to ambulate around room and utilize IS/Acapella * Currently on high flow O2 at 30liters and 40% * Denies GI symptoms * WBC 11.95, D-dimer 3.37, CRP 1.7, albumin 2.7. * 25 hydroxy vitamin D 62 * Completed Remdesivir * Dexamethasone - day 04/25 * Chest xray shows stable coarse bilateral peripheral interstitial infiltrates. Hypertension, deteriorated * Continue metoprolol 50 mg twice daily at home * Started on chlorthalidone 25 mg * Blood pressures have been stable. * No history of heart disease, congestive heart failure, or lung disease. * Stopped smoking in 1999 * Monitor Elevated liver enzymes, continues to improve * Possibly secondary to remdesivir * AST 23, ALT 100, alk phos 37 July 27, 2020 COVID-19 infection with pneumonia and hypoxemia Hypoalbuminemia * Continues to ambulate around room and utilize IS/Acapella * Currently on high flow O2 at 30 liters and 40% * Denies GI symptoms * WBC 12.50, D-dimer 1.37, CRP 0.9, albumin 2.7. * 25 hydroxy vitamin D 62 * Completed Remdesivir * Completed Dexamethasone Hypertension, stable * Continue metoprolol 50 mg twice daily at home * Started on chlorthalidone 25 mg * Blood pressures have been stable. * No history of heart disease, congestive heart failure, or lung disease. * Stopped smoking in 1999 * Monitor Elevated liver enzymes, resolved July 28, 2020 COVID-19 infection with pneumonia and hypoxemia Hypoalbuminemia * Continues to ambulate around room and utilize IS/Acapella * Currently on 4L via [place] * Denies GI symptoms * Completed Remdesivir * Completed Dexamethasone Hypertension, stable * Continue metoprolol 50 mg twice daily at home * Started on chlorthalidone 25 mg * Blood pressures have been stable. * No history of heart disease, congestive heart failure, or lung disease. * Stopped smoking in 1999 * Monitor Elevated liver enzymes, resolved July 29, 2020 COVID-19 infection with pneumonia and hypoxemia Hypoalbuminemia * Continues to ambulate around room and utilize IS/Acapella * Currently on 1L via [place] * Denies GI symptoms * Completed Remdesivir * Completed Dexamethasone Hypertension - now hypotensive * Continue metoprolol 50 mg twice daily at home * Discontinue chlorthalidone 25 mg * Blood pressures have been low the last couple of days * No history of heart disease, congestive heart failure, or lung disease. * Stopped smoking in 1999 * Monitor Elevated liver enzymes, resolved Likely discharge tomorrow (07/30/20) pending continued improvement. July 30, 2020 COVID-19 infection with pneumonia and hypoxemia Hypoalbuminemia * Continues to ambulate around room and utilize IS/Acapella * Currently on 1.5L via [place] * Denies GI symptoms * Completed Remdesivir * Completed Dexamethasone Hypertension - now hypotensive * Continue metoprolol 50 mg twice daily at home * Discontinue Cozaar 50 mg at HS * Blood pressures have been low the last couple of days * No history of heart disease, congestive heart failure, or lung disease. * Stopped smoking in 1999 * Monitor Elevated liver enzymes, resolved Likely discharge tomorrow (07/31/20) pending continued improvement. - Plan Plan:: Plan * Continue current management * Completed remdesivir * Completed dexamethasone * Continue Lovenox 40 mg twice daily * Discontinue Cozaar due to lower BPs. * Encourage proning * Continue I-S and flutter valve * FiO2 to keep SPO2 88% to 94% * Dietary consult, encourage protein intake and good nutrition. * Patient takes vitamin D and zinc at home and will continue the above. * Continue metoprolol 50 mg twice daily * Continue O2 as needed and attempt to wean * Re-check AM labs as ordered * Daily labs as ordered * VTE prophylaxis with Lovenox * CODE STATUS: Full code Length of stay greater than 96 hours secondary to treatment for Covid. Continued need for oxygen. Likely discharge 07/31/2020 pending continued improvement.
[2020-07-31 08:50] VITALS: BP 105/65; PULSE 100
[2020-07-31] MEDS: Ascorbic Acid 500 MG Tab PO SCH (09:18)
[2020-07-31] MEDS: Enoxaparin 40 MG/0.4 ML Syringe SUBCUT SCH (09:18)
[2020-07-31] MEDS: Cholecalciferol (Vitamin D3) 25 MCG Tab PO SCH (09:18)
[2020-07-31] MEDS: Multivitamins,Therapeutic Tab PO SCH (09:18)
[2020-07-31] MEDS: Docusate Sodium 100 MG Cap PO SCH (09:18)
[2020-07-31] MEDS: Zinc Sulfate 220 MG Cap PO SCH (09:18)
[2020-07-31] MEDS: Metoprolol Tartrate 50 MG Tab PO SCH (09:21)
--- NOTE | 2020-07-31 09:45 | PCM.DCSUM1 ---
Discharge Summary - Hospital Course HPI Initial Comments: 69-year-old male with history of hypertension and diagnosed with COVID-19 on July 10, 2020 presents to the emergency department with recurrence of fever and fatigue. Patient states he started getting ill on July 07 and has had poor oral intake. He initially had fever that did resolve and then came back couple days ago. He continues to have paroxysmal nonproductive cough, and weakness. Initially he had fever, chills, body aches, sore throat, and cough. When he arrived in the emergency department his oxygen saturations were 74% and on 3 L by increased to the 90s. EKG showed normal sinus rhythm with a ventricular rate of 93 bpm. P wave was enlarged. RSR prime in V1 and V2. Early R wave transition with possible septal hypertrophy. Left atrial hypertrophy. Diagnosis: Stroke: No - Discharge Data Discharge Date: 07/31/20 (Admit date: 07/18/2020) Discharge Disposition: Home, Self-Care 01 Condition: Good - Referral to Home Health Primary Care Physician: Ben Abrams Jr, MD - Discharge Diagnosis/Problem(s) (1) COVID-19 determined by clinical diagnostic criteria SNOMED Code(s): 464649676, 897570324 ICD Code: U07.1 - COVID-19 Status: Acute Priority: High (2) Hypertension SNOMED Code(s): 44780609 ICD Code: I10 - ESSENTIAL (PRIMARY) HYPERTENSION Status: Acute Priority: High Qualifiers: Hypertension type: unspecified Qualified Code(s): I10 - Essential (primary) hypertension (3) Pneumonia due to COVID-19 virus SNOMED Code(s): 367147379856424422 ICD Code: U07.1 - COVID-19; J12.89 - OTHER VIRAL PNEUMONIA Status: Acute Priority: High (4) Hypoxia SNOMED Code(s): 485325288 ICD Code: R09.02 - HYPOXEMIA Status: Acute Priority: High (5) Hypophosphatemia SNOMED Code(s): 1989472 ICD Code: E83.39 - OTHER DISORDERS OF PHOSPHORUS METABOLISM Status: Resolved Priority: High - Patient Summary/Data Consults: Consultations 07/18/20 17:11 Respiratory Care Assess and Treatment [CONS] Routine 07/19/20 10:46 Consult to Occupational Therapy [OT Evaluation and Treatment] [CONS] Routine PT Evaluation and Treatment [CONS] Routine 07/19/20 14:47 Consult to Dietary [Consult to Order Desk Clerk] [CONS] Routine Labs Pending at D/C: None Recommended Follow-up Testing/Procedures: Follow-up with primary care provider within 5-7 days of discharge. - Recommend repeat CBC, CMP, Magnesium at that appointment - Consider repeat CXR Hospital Course: Jorge was admitted to the medical floor for treatment of his COVID-19. He was started on remdesivir and completed 5 days of treatment. He was also started on 6mg dexamethasone and completed 10 days of treatment. He continued to improve and continued to be admitted due to his oxygen requirements. He worked with our RT department and utilized IS and acapella frequently. He regularly ambulated around the room. Chest x-ray remained stable, but concerning for COVID-19 pneumonia. Blood cultures were negative. PT and OT evaluated him and found him appropriate for home discharge. He was noted to have some episodes of hypertension during his stay and was started on chlorthalidone. This was discontinued prior to discharge due to low blood pressures. He was discharged home today. All home medications were continued. There were no new medications at discharge as he had completed his COVID-19 treatment. He was instructed to follow-up with his PCP within 5-7 days of discharge. Recommend re-check CBC, CMP, Magnesium and CXR at that time. He was instructed to continue to utilize his IS/Acapella and ambulate frequently. He was weaned off of oxygen prior to discharge. He was instructed to check in with his [facility] nurse case management for further guidance with his COVID-19 isolation. He had been removed from isolation while here. He discharged home today. - Patient Instructions Diet: Usual Diet as Tolerated Activity: As Tolerated Driving: Do Not Drive (today) Showering/Bathing: May Shower Notify Provider of: Fever, Increased Pain, Nausea and/or Vomiting Other/Special Instructions: Follow-up with primray care provider lindsey 5-7 days of discharge, sooner if needed. Continue to take it easy and listen to your body. Stay active and walk frequently but do not push it. Rest if needed. It can take months to get back to your baseline. Continue to utilize your incentive spirometer (Clear/blue device you inhale through) and your acapella (green tube you blow through) until you feel better. You completed treatment for your COVID-19 while here. You will not be prescribed anything on discharge for this. Should symptoms return or worsen contact your primary care provider or return to the Emergency Department. - Discharge Plan *PRESCRIPTION DRUG MONITORING PROGRAM REVIEWED*: Not Applicable *COPY OF PRESCRIPTION DRUG MONITORING REPORT IN PATIENT JAMEL: Not Applicable Home Medications: Home Meds Metoprolol Tartrate [Lopressor] 50 mg PO BID 06/25/16 [History] Ascorbic Acid [Vitamin C] 1,000 mg PO BID 07/19/20 [History] Cholecalciferol (Vitamin D3) [Vitamin D3] 1,000 cap PO BID 07/19/20 [History] Multivitamin 1 tab PO DAILY 07/19/20 [History] Oxygen Therapy Mode: Room Air Patient Handouts: COVID-19 Frequently Asked Questions, COVID-19, Hypoxemia, How to Use an Incentive Spirometer, COVID-19: How to Protect Yourself and Others - CDC, Sepsis, Self Care, Adult Forms: ED Department Discharge Referrals: Ben Abrams Jr, MD [Primary Care Provider] - 08/06/20 1:30 pm (Please follow up with Dr. Abrams on ThursdayAugust 06 at 1:30pm.) - Discharge Summary/Plan Comment DC Time >30 min.: Yes (54 mins ) - General Info Date of Service: 07/31/20 Admission Dx/Problem (Free Text: Admission Diagnosis/Problem Admission Diagnosis/Problem Hypoxia Functional Status: Reports: Pain Controlled, Tolerating Diet, Ambulating, Urinating, Incentive Spirometry, Other (Acapella ). Denies: New Symptoms - Review of Systems General: Reports: No Symptoms. Denies: Fever, Weakness, Fatigue, Malaise, Chills HEENT: Reports: No Symptoms. Denies: Headaches, Sore Throat Pulmonary: Reports: No Symptoms. Denies: Shortness of Breath, Cough, Sputum Cardiovascular: Reports: Dyspnea on Exertion. Denies: Chest Pain, Palpitations Gastrointestinal: Reports: No Symptoms. Denies: Abdominal Pain, Constipation, Diarrhea, Nausea, Vomiting Genitourinary: Reports: No Symptoms. Denies: Pain Musculoskeletal: Reports: No Symptoms Skin: Reports: No Symptoms. Denies: Cyanosis Neurological: Reports: No Symptoms. Denies: Confusion Psychiatric: Reports: No Symptoms - Patient Data Vitals - Most Recent: Last Vital Signs Temp 97.9 F 07/31/20 08:49 Pulse 100 07/31/20 09:21 Resp 18 07/31/20 08:49 BP 105/65 07/31/20 09:21 Pulse Ox 90 L 07/31/20 08:49 Weight - Most Recent: 191 lb 4.8 oz I&O - Last 24 hours: Intake & Output 07/30/20 07/31/20 07/31/20 22:59 06:59 14:59 Intake Total 1510 200 Output Total 800 750 Balance 710 -550 Med Orders - Current: Current Medications Acetaminophen (Tylenol) 650 mg PO Q4H PRN PRN Reason: Pain (Mild 1-3)/fever Ascorbic Acid (Vitamin C) 1,000 mg PO BID [facility] Last Admin: 07/31/20 09:18 Dose: 1,000 mg Documented by: Cholecalciferol (Vitamin D3) 25 mcg PO BID [facility] Last Admin: 07/31/20 09:18 Dose: 25 mcg Documented by: Docusate Sodium (Colace) 100 mg PO BID [facility] Last Admin: 07/31/20 09:18 Dose: 100 mg Documented by: Enoxaparin Sodium (Lovenox) 40 mg SUBCUT Q12H [facility] Last Admin: 07/31/20 09:18 Dose: 40 mg Documented by: Hydralazine HCl (Apresoline) 10 mg IVPUSH Q4H PRN PRN Reason: Hypertension Last Admin: 07/22/20 21:19 Dose: 10 mg Documented by: Metoprolol Tartrate (Lopressor) 50 mg PO BID [facility] Last Admin: 07/31/20 09:21 Dose: 50 mg Documented by: Multivitamins (Thera) 1 each PO DAILY [facility] Last Admin: 07/31/20 09:18 Dose: 1 each Documented by: Ondansetron HCl (Zofran) 4 mg IV Q4H PRN PRN Reason: Nausea/Vomiting Zinc Sulfate (Zincate) 220 mg PO DAILY [facility] Last Admin: 07/31/20 09:18 Dose: 220 mg Documented by: Discontinued Medications Acetaminophen (Tylenol) 975 mg PO ONETIME ONE Stop: 07/18/20 16:19 Last Admin: 07/18/20 16:33 Dose: 975 mg Documented by: Chlorthalidone (Chlorthalidone) 25 mg PO DAILY [facility] Last Admin: 07/29/20 08:31 Dose: Not Given Documented by: Dexamethasone (Decadron) 6 mg IVPUSH ONETIME ONE Stop: 07/18/20 16:11 Last Admin: 07/18/20 16:32 Dose: 6 mg Documented by: Dexamethasone (Dexamethasone) 6 mg PO DAILY [facility] Stop: 07/27/20 09:01 Last Admin: 07/27/20 08:10 Dose: 6 mg Documented by: Enoxaparin Sodium (Lovenox) 40 mg SUBCUT DAILY [facility] Last Admin: 07/22/20 09:34 Dose: 40 mg Documented by: Hydralazine HCl (Apresoline) 10 mg IVPUSH ONETIME ONE Stop: 07/21/20 17:21 Last Admin: 07/21/20 17:24 Dose: 10 mg Documented by: Hydralazine HCl (Apresoline) Confirm Administered Dose 20 mg .ROUTE .STK-MED ONE Stop: 07/21/20 17:23 Last Admin: 07/21/20 17:46 Dose: Not Given Documented by: Dextrose/Lactated Ringer's (Dextrose 5%-Lactated Ringers) 1,000 mls @ 150 mls/hr IV ASDIRECTED [facility] Last Admin: 07/18/20 15:02 Dose: 150 mls/hr Documented by: Remdesivir 200 mg/ Sodium (Chloride) 250 mls @ 250 mls/hr IV ONETIME ONE Stop: 07/18/20 17:12 Last Admin: 07/18/20 17:43 Dose: 250 mls/hr Documented by: Remdesivir 100 mg/ Sodium (Chloride) 100 mls @ 100 mls/hr IV Q24H [facility] Stop: 07/22/20 18:14 Last Admin: 07/22/20 17:03 Dose: 100 mls/hr Documented by: Ibuprofen (Motrin) 600 mg PO ONETIME ONE Stop: 07/18/20 14:31 Last Admin: 07/18/20 15:03 Dose: 600 mg Documented by: Losartan Potassium (Cozaar) 50 mg PO BEDTIME [facility] Last Admin: 07/29/20 21:52 Dose: 50 mg Documented by: Sodium Phosphate (Neutra-Phos) 250 mg PO BID [facility] Stop: 07/19/20 21:01 Last Admin: 07/19/20 20:28 Dose: 250 mg Documented by: - Exam Quality Assessment: Reports: DVT Prophylaxis. Denies: Supplemental Oxygen General: Reports: Alert, Oriented, Cooperative, No Acute Distress HEENT: Reports: Pupils Equal, Pupils Reactive, Mucous Membr. Moist/[place] Neck: Reports: Supple, Trachea Midline Lungs: Reports: Normal Respiratory Effort, Decreased Breath Sounds. Denies: Crackles, Rhonchi, Wheezing Cardiovascular: Reports: Regular Rate, Regular Rhythm GI/Abdominal Exam: Normal Bowel Sounds, Soft, Non-Tender, No Distention (Male) Exam: Deferred Rectal (Males) Exam: Deferred Back Exam: Reports: Normal Inspection, Full Range of Motion Extremities: Normal Inspection, Normal Range of Motion, Non-Tender, No Pedal Edema, Normal Capillary Refill Skin: Reports: Warm, Dry, Intact Neurological: Reports: No New Focal Deficit Psy/Mental Status: Reports: Alert, Normal Affect, Normal Mood
== END 2020-07-31 10:50 | disposition home or self-care (01) | DRG 177 ==
LOC: JD.ED 13:46 → UNDOADMIN 16:34 → JD.MS 16:34 → JD.ICU 16:34 → JD.MS 17:48 → JD.ICU 17:48 → JD.MS 07-21 21:05
PROVIDERS: ADMIT Family Medicine; ATTEND Family Medicine
PROC: XW033E5 Introduction of Remdesivir Anti-infective into Peripheral Vein, Percutaneous Approach, New Technology Group 5 (ICD-10-PCS; principal; 2020-07-18)
PROC: 8E0ZXY6 Isolation (ICD-10-PCS; 2020-07-18)
DX: U07.1 COVID-19 (principal); J12.89 Other viral pneumonia; R09.02 Hypoxemia; R79.82 Elevated C-reactive protein (CRP); I10 Essential (primary) hypertension; E83.39 Other disorders of phosphorus metabolism; H54.7 Unspecified visual loss; Z89.012 Acquired absence of left thumb; Z89.022 Acquired absence of left finger(s); E78.00 Pure hypercholesterolemia, unspecified; E88.09 Other disorders of plasma-protein metabolism, not elsewhere classified; R74.8 Abnormal levels of other serum enzymes; Z79.899 Other long term (current) drug therapy
CPT/HCPCS: 36415; 71045; 80053; 82728; 83605; 83615; 83735; 83880; 84145; 84484; 85025; 85379; 85610; 85652; 85730; 86140; 87040 ×2; 93005; 96375; 99285; A9270 ×2; J1100; J7121; 82306; 84100; 93010; 94667; 94668; 94761; 94762; 96365; 97110-GP; 97162-GP; 97165-GO; J0360; J1650; J7050; J8540

== ENCOUNTER 2023-12-02 21:38 | Emergency (ER) | payer BC, MEDICARE, OTHER ==
[2023-12-02 22:32] LABS: BASOPHILS ABSOLUTE AUTO 0.1 K/mm3 (0.0-0.2); BASOPHILS PERCENT AUTO 0.9 % (0.0-1.0); EOSINOPHILS ABSOLUTE AUTO 0.2 K/mm3 (0.0-0.4); EOSINOPHILS PERCENT AUTO 2.3 % (0.0-6.0); HEMATOCRIT 40.8 % (42.0-52.0); HEMOGLOBIN 14.1 gm/dl (14.0-18.0); IMMATURE GRAN ABSOLUTE AUTO 0.01 K/mm3 (0.00-0.05); IMMATURE GRAN PERCENT AUTO 0.1 % (0.0-0.4); LYMPHOCYTES ABSOLUTE AUTO 2.8 K/mm3 (1.0-4.8); LYMPHOCYTES PERCENT AUTO 34.8 % (24.0-44.0); MEAN CORPUSCULAR HEMOGLOBIN 32.7 pg (28.0-32.0); MEAN CORPUSCULAR HGB CONC 34.6 g/dl (32.0-36.0); MEAN CORPUSCULAR VOLUME 94.7 fl (83.0-99.0); MEAN PLATELET VOLUME 9.9 fl (9.4-12.4); MONOCYTES PERCENT AUTO 11.9 % (0.0-8.0); NEUTROPHILS ABSOLUTE AUTO 4.1 K/mm3 (1.8-7.7); PLATELET COUNT,PLT 211 K/mm3 (150-400); RED BLOOD CELL COUNT 4.31 M/mm3 (4.52-5.90); WHITE BLOOD CELL COUNT,WBC 8.16 K/mm3 (3.9-11.3)
[2023-12-02] MEDS: Metoprolol Tartrate 5 MG/5 ML SDV IVPUSH ONE (22:58)
[2023-12-02 23:15] LABS: ALBUMIN 3.6 g/dl (3.4-5.0); ANION GAP 14.9 (5-15); BILIRUBIN TOTAL 0.4 mg/dL (0.2-1.0); BUN/CREATININE RATIO 16.9 (14-18); CALCIUM 8.9 mg/dL (8.5-10.1); CREATININE 1.3 mg/dL (0.7-1.3); EST CRCL DRUG DOSING (CG) 52.29 mL/min; POTASSIUM,K 3.9 mEq/L (3.5-5.1); PROTEIN TOTAL,TP 7.3 g/dl (6.4-8.2)
[2023-12-02] MEDS ORDERED: Metoprolol Tartrate 25 MG Tab PO ONE (23:27)
== END 2023-12-03 | disposition home or self-care (01) ==
LOC: JD.ED 21:38 → MERGE 21:38 → JD.ED 12-03
DX: I10 Essential (primary) hypertension (principal); Z86.16 Personal history of COVID-19
CPT/HCPCS: 36415; 70450; 71046; 80053; 84484; 85025; 93005; 96374; 99284; J3490; 93010

== ENCOUNTER 2023-12-03 21:00 | Emergency (ER) | payer MEDICARE ==
[2023-12-03] MEDS: Losartan 100 MG Tab PO ONE (21:34)
[2023-12-03] MEDS: hydrALAZINE 20 MG/ML SDV IVPUSH ONE (21:35)
== END 2023-12-03 22:27 | disposition home or self-care (01) ==
LOC: JD.ED 21:00
DX: I10 Essential (primary) hypertension (principal); Z86.16 Personal history of COVID-19; Z79.899 Other long term (current) drug therapy
CPT/HCPCS: 93005; 96374; 99283; A9270; J0360; 93010; 99284

== ENCOUNTER 2023-12-06 20:34 | Emergency (ER) | payer MEDICARE ==
[2023-12-06] MEDS: Labetalol 100 MG/20 ML MDV IVPUSH ONE (21:27)
[2023-12-06 21:33] LABS: BASOPHILS ABSOLUTE AUTO 0.1 K/mm3 (0.0-0.2); BASOPHILS PERCENT AUTO 0.6 % (0.0-1.0); EOSINOPHILS ABSOLUTE AUTO 0.3 K/mm3 (0.0-0.4); HEMATOCRIT 42.7 % (42.0-52.0); HEMOGLOBIN 14.6 gm/dl (14.0-18.0); IMMATURE GRAN ABSOLUTE AUTO 0.03 K/mm3 (0.00-0.05); IMMATURE GRAN PERCENT AUTO 0.4 % (0.0-0.4); LYMPHOCYTES ABSOLUTE AUTO 2.8 K/mm3 (1.0-4.8); LYMPHOCYTES PERCENT AUTO 33.7 % (24.0-44.0); MEAN CORPUSCULAR HEMOGLOBIN 32.3 pg (28.0-32.0); MEAN CORPUSCULAR HGB CONC 34.2 g/dl (32.0-36.0); MEAN CORPUSCULAR VOLUME 94.5 fl (83.0-99.0); MEAN PLATELET VOLUME 10.3 fl (9.4-12.4); MONOCYTES ABSOLUTE AUTO 0.8 K/mm3 (0.0-0.8); MONOCYTES PERCENT AUTO 9.4 % (0.0-8.0); NEUTROPHILS ABSOLUTE AUTO 4.4 K/mm3 (1.8-7.7); NEUTROPHILS PERCENT AUTO 52.9 % (41.0-71.0); PLATELET COUNT,PLT 208 K/mm3 (150-400); RED BLOOD CELL COUNT 4.52 M/mm3 (4.52-5.90); WHITE BLOOD CELL COUNT,WBC 8.31 K/mm3 (3.9-11.3)
[2023-12-06] MEDS: Sodium Chloride 0.9% 10 ML Syringe FLUSH PRN ×2 (21:37→22:24)
[2023-12-06 21:57] LABS: A/G RATIO 0.9 (1-2); ALBUMIN 3.6 g/dl (3.4-5.0); ANION GAP 12.9 (5-15); BILIRUBIN TOTAL 0.3 mg/dL (0.2-1.0); CALCIUM 9.1 mg/dL (8.5-10.1); CREATININE 1.2 mg/dL (0.7-1.3); EST CRCL DRUG DOSING (CG) 56.65 mL/min; PROTEIN TOTAL,TP 7.5 g/dl (6.4-8.2)
[2023-12-06 21:58] LABS: POTASSIUM,K 3.9 mEq/L (3.5-5.1)
[2023-12-06] MEDS: Iopamidol 612 MG/ML 100 ML Bottle IVPUSH ONE (22:23)
[2023-12-06] MEDS ORDERED: Labetalol 100 MG/20 ML MDV IVPUSH ONE (22:29)
== END 2023-12-06 23:29 | disposition home or self-care (01) ==
LOC: JD.ED 20:34
DX: I71.43 Infrarenal abdominal aortic aneurysm, without rupture (principal); I10 Essential (primary) hypertension; E78.00 Pure hypercholesterolemia, unspecified; Z79.899 Other long term (current) drug therapy
CPT/HCPCS: 36415; 71260; 74177; 80053; 84484; 85025; 93005; 96374; 99285; J1921; J3490; Q9967

== ENCOUNTER 2023-12-11 16:37 | Observation (INO) | payer MEDICARE, OTHER ==
[2023-12-11 18:03] LABS: BASOPHILS ABSOLUTE AUTO 0.1 K/mm3 (0.0-0.2); BASOPHILS PERCENT AUTO 0.8 % (0.0-1.0); EOSINOPHILS ABSOLUTE AUTO 0.2 K/mm3 (0.0-0.4); EOSINOPHILS PERCENT AUTO 3.1 % (0.0-6.0); HEMATOCRIT 40.2 % (42.0-52.0); HEMOGLOBIN 13.8 gm/dl (14.0-18.0); IMMATURE GRAN ABSOLUTE AUTO 0.03 K/mm3 (0.00-0.05); IMMATURE GRAN PERCENT AUTO 0.5 % (0.0-0.4); LYMPHOCYTES ABSOLUTE AUTO 2.1 K/mm3 (1.0-4.8); LYMPHOCYTES PERCENT AUTO 33.1 % (24.0-44.0); MEAN CORPUSCULAR HEMOGLOBIN 31.9 pg (28.0-32.0); MEAN CORPUSCULAR HGB CONC 34.3 g/dl (32.0-36.0); MEAN CORPUSCULAR VOLUME 92.8 fl (83.0-99.0); MEAN PLATELET VOLUME 10.8 fl (9.4-12.4); MONOCYTES ABSOLUTE AUTO 0.7 K/mm3 (0.0-0.8); NEUTROPHILS ABSOLUTE AUTO 3.3 K/mm3 (1.8-7.7); NEUTROPHILS PERCENT AUTO 51.5 % (41.0-71.0); PLATELET COUNT,PLT 64 K/mm3 (150-400); RED BLOOD CELL COUNT 4.33 M/mm3 (4.52-5.90); WHITE BLOOD CELL COUNT,WBC 6.35 K/mm3 (3.9-11.3)
[2023-12-11 18:26] LABS: ALBUMIN 3.5 g/dl (3.4-5.0); ANION GAP 12.9 (5-15); BILIRUBIN TOTAL 0.2 mg/dL (0.2-1.0); BUN/CREATININE RATIO 11.9 (14-18); CALCIUM 8.6 mg/dL (8.5-10.1); CREATININE 1.6 mg/dL (0.7-1.3); EST CRCL DRUG DOSING (CG) 42.49 mL/min; POTASSIUM,K 3.9 mEq/L (3.5-5.1); PROTEIN TOTAL,TP 7.2 g/dl (6.4-8.2)
[2023-12-11 20:55] LABS: APPEARANCE,URINE CLEAR (Clear); BILIRUBIN,URINE NEGATIVE (Negative); COLOR,URINE YELLOW (Yellow); GLUCOSE,URINE NEGATIVE (Negative); KETONES,URINE NEGATIVE (Negative); LEUKOCYTE ESTERASE,URINE NEGATIVE (Negative); NITRITE,URINE NEGATIVE (Negative); OCCULT BLOOD,URINE NEGATIVE (Negative); PH,URINE 6.5 (5.0-8.0); PROTEIN,URINE NEGATIVE (Negative); UROBILINOGEN,URINE 0.2 (0.2-1.0)
[2023-12-12 05:49] LABS: HEMATOCRIT 38.2 % (42.0-52.0); HEMOGLOBIN 13.3 gm/dl (14.0-18.0); MEAN CORPUSCULAR HEMOGLOBIN 32.4 pg (28.0-32.0); MEAN CORPUSCULAR HGB CONC 34.8 g/dl (32.0-36.0); MEAN CORPUSCULAR VOLUME 93.2 fl (83.0-99.0); MEAN PLATELET VOLUME 10.1 fl (9.4-12.4); RETICULOCYTE COUNT PERCENT 1.78 % (0.50-2.00); WHITE BLOOD CELL COUNT,WBC 6.98 K/mm3 (3.9-11.3)
[2023-12-12 05:55] LABS: PLATELET COUNT,PLT 179 K/mm3 (150-400)
[2023-12-12] MEDS: Losartan 100 MG Tab PO SCH (08:06)
[2023-12-12] MEDS: Metoprolol Tartrate 50 MG Tab PO SCH (08:06)
[2023-12-12 11:18] LABS: ALBUMIN 3.3 g/dl (3.4-5.0); ANION GAP 16.9 (5-15); BILIRUBIN TOTAL 0.3 mg/dL (0.2-1.0); BUN/CREATININE RATIO 15.8 (14-18); CALCIUM 8.5 mg/dL (8.5-10.1); CREATININE 1.2 mg/dL (0.7-1.3); EST CRCL DRUG DOSING (CG) 56.65 mL/min; POTASSIUM,K 3.9 mEq/L (3.5-5.1); PROTEIN TOTAL,TP 6.6 g/dl (6.4-8.2)
[2023-12-12] MEDS: Acetaminophen 325 MG Tab PO PRN (13:34)
[2023-12-12] MEDS: Hydrochlorothiazide 25 MG Tab PO ONE (13:35)
== END 2023-12-12 15:48 | disposition home or self-care (01) ==
LOC: JD.ED 16:37 → JD.MS 21:15
PROVIDERS: ADMIT Internal Medicine; ATTEND Internal Medicine
DX: D69.6 Thrombocytopenia, unspecified (principal); I71.43 Infrarenal abdominal aortic aneurysm, without rupture; I10 Essential (primary) hypertension; J40 Bronchitis, not specified as acute or chronic; Z98.890 Other specified postprocedural states; Z79.899 Other long term (current) drug therapy
CPT/HCPCS: 36415; 80053; 80074; 81003; 83615; 84484; 85025; 85027; 85045; 93005; 94760; 99222; 99285; A9270-GY; G0378